=== PATIENT | male | born 1940 | race Caucasian/White ===

== ENCOUNTER → 2016-06-16 | Outpatient (CLI) | payer OTHER ==
[~2016-06-16] MED LIST: ASPI325T45 PO; ATOR-24 PO; CALC-393 PO; CHOL100010 PO; CIPR-255 PO; CLR10 PO; CYAN500T PO; DIAZ-165 PO; ENOX40IN SQ; HYDR-5688 PO; HYDR500C3 PO; INDSR80 PO; METR500T PO; OXYC-57 PO; PRD/1 PO
== END | disposition home or self-care (01) ==
LOC: C.LABMFLN 11:06
PROVIDERS: ATTEND Internal Medicine Rheumatology
DX: M35.3 Polymyalgia rheumatica (principal); Z79.52 Long term (current) use of systemic steroids

== ENCOUNTER → 2016-06-29 | Outpatient (CLI) | payer OTHER | END | disposition home or self-care (01) | LOC: C.LABMFLN 08:29 | PROVIDERS: ATTEND Internal Medicine Rheumatology | DX: M35.3 Polymyalgia rheumatica (principal) ==

== ENCOUNTER → 2016-08-14 | Outpatient (CLI) | payer OTHER | END | disposition home or self-care (01) | LOC: C.LABMFLN 08:02 | PROVIDERS: ATTEND Internal Medicine Rheumatology | DX: M35.3 Polymyalgia rheumatica (principal); Z51.81 Encounter for therapeutic drug level monitoring; Z79.52 Long term (current) use of systemic steroids ==

== ENCOUNTER → 2016-11-13 | Outpatient (CLI) | payer OTHER | END | disposition home or self-care (01) | LOC: C.LAB1850 09:22 | PROVIDERS: ATTEND Internal Medicine Rheumatology | DX: M35.3 Polymyalgia rheumatica (principal); Z79.52 Long term (current) use of systemic steroids ==

== ENCOUNTER → 2017-01-03 | Outpatient (CLI) | payer OTHER ==
[2017-01-03 13:20] LABS: HEMATOCRIT 44.6 % (42-52); MEAN CELL VOLUME 97.2 fL (80-100); MEAN CORPUSCULAR HEMOGLOBIN 31.2 pg (25-34); MEAN CORPUSCULAR HGB CONC 32.1 g/dl (32-36); MEAN PLATELET VOLUME 10.7 fL (7.4-10.4); PLATELET COUNT 829 K/uL (130-400); RED BLOOD COUNT 4.59 M/uL (4.7-6.1); WHITE BLOOD COUNT 15.38 K/uL (4.8-10.8)
[2017-01-03 16:39] LABS: BASO ABS # 0.26 K/uL (0-0.2); BASOPHIL % 1.7 % (0-2); EOSINOPHIL % 8.5 %; LYMPH ABS # 1.17 K/uL (1.2-3.4); LYMPHOCYTE % 7.6 %; META ABS # 0.26 K/uL (0-0); METAMYELOCYTE % 1.7 %; MYELOCYTE % 5.9 %; NEUTROPHILS % 58.5 %; POLYCHROMASIA 1+; VARIANT LYM ABS # 1.57 K/uL; VARIANT LYMPHOCYTE % 10.2 %
[2017-01-03 17:14] LABS: COMPLETE YES
== END | disposition home or self-care (01) ==
LOC: C.LABMFLN 08:13
PROVIDERS: ATTEND Family Medicine
DX: D72.829 Elevated white blood cell count, unspecified (principal)

== ENCOUNTER 2017-01-22 12:31 | Inpatient (IN) | payer OTHER ==
[2017-01-22] VITALS (9 sets, daily range): BP systolic 105–119; BP diastolic 69–77; PULSE 83–93; TEMP 36.8–37.1; O2SAT 96–97; Ht 177.8 cm; Wt 88.9 kg
[~2017-01-22] VITALS: Ht 177.8 cm; Wt 88.9 kg
[2017-01-22] MEDS ORDERED: DIAZ-165 PO (13:09)
[2017-01-22] MEDS ORDERED: ASPI325T45 PO (13:09)
[2017-01-22] MEDS ORDERED: PRD/1 PO (13:09)
[2017-01-22] MEDS ORDERED: CHOL100010 PO (13:09)
[2017-01-22] MEDS ORDERED: CALC-393 PO (13:09)
[2017-01-22] MEDS ORDERED: HYDR-5688 PO (13:09)
[2017-01-22] MEDS ORDERED: INDSR80 PO (13:09)
[2017-01-22] MEDS ORDERED: CYAN500T PO (13:09)
[2017-01-22] MEDS ORDERED: CLR10 PO (13:09)
[2017-01-22] MEDS ORDERED: ATOR-24 PO (13:09)
[2017-01-22] MEDS ORDERED: MoRPHine SULFATE 4 MG/ML 1 ML CARP\\VIAL IV STA (13:16)
[2017-01-22] MEDS ORDERED: SODIUM CHLORIDE 0.9% 500ML 500 ML IV STA (13:16)
[2017-01-22] MEDS ORDERED: ONDANSETRON INJ 2 MG/ML 2 ML VIAL IV STA (13:16)
[2017-01-22] MEDS ORDERED: OPTIRAY 320 IV PRN (13:30)
[2017-01-22 13:44] LABS: HEMATOCRIT 43.6 % (42-52); MEAN CORPUSCULAR HEMOGLOBIN 31.2 pg (25-34); MEAN CORPUSCULAR HGB CONC 32.8 g/dl (32-36); MEAN PLATELET VOLUME 9.9 fL (7.4-10.4); PLATELET COUNT 706 K/uL (130-400); RED BLOOD COUNT 4.59 M/uL (4.7-6.1); WHITE BLOOD COUNT 19.12 K/uL (4.8-10.8)
[2017-01-22 13:52] LABS: URINE APPEARANCE CLEAR (CLEAR); URINE BILIRUBIN NEG (NEG); URINE COLOR YELLOW; URINE NITRITE NEG (NEG); URINE SPECIFIC GRAVITY 1.017 (1.000-1.030); UROBILINOGEN NEG (NEG); ZZUR CULT IF INDIC CLEAN CATCH NO
[2017-01-22 13:55] LABS: MANUAL MICROSCOPIC REQUIRED? NO; REVIEW REQ? NO
[2017-01-22 14:03] LABS: BUN/CREATININE RATIO 13.6 (10-20); CALCIUM 9.3 mg/dl (8.5-10.1); CREATININE 0.9 mg/dl (0.60-1.40); POTASSIUM 3.9 mmol/L (3.5-5.1)
[2017-01-22 14:41] LABS: BASO ABS # 0.33 K/uL (0-0.2); BASOPHIL % 1.7 % (0-2); COMPLETE YES; DOHLE BODIES 1+; ECHINOCYTES 1+; EOSINOPHIL % 0.9 %; LYMPH ABS # 0.82 K/uL (1.2-3.4); LYMPHOCYTE % 4.3 %; MYELOCYTE % 2.6 %; NEUTROPHILS % 85.3 %; TOXIC GRANULATION 1+
--- NOTE | 2017-01-22 14:42 | DIAGNOSTIC IMAGING REPORT ---
CT ABD/PELVIS IV CONTRAST ONLY CLINICAL HISTORY: Severe generalized abdominal pain COMPARISON STUDY: None. TECHNIQUE: Following the IV administration of 93 mL of Optiray-320, CT scan of the abdomen and pelvis was performed from the lung bases to the proximal femurs. Images are reviewed in the axial, sagittal, and coronal planes. IV contrast was administered without complication. A dose lowering technique was utilized adhering to the principles of ALARA. CT DOSE: 475.83 mGy.cm FINDINGS: Lower chest: There is a small right pleural effusion. There are bibasal airspace opacities right greater than left, likely atelectatic. Liver: The contrast-enhanced liver is normal in size, contour, and attenuation. There is no intrahepatic biliary ductal dilatation. The hepatic veins and portal veins are patent. Gallbladder: Unremarkable. Spleen: Normal in size and attenuation. Pancreas: Unremarkable. Adrenal glands: Unremarkable. Kidneys: There is a 5.9 cm exophytic right renal cyst. Bowel: There are no transition zones indicate bowel obstruction. There is extensive free intraperitoneal air. There is infiltration of the fat adjacent to the sigmoid colon and terminal ileum. There is an area of focal bowel wall thickening within the sigmoid. Likely diagnostic considerations include perforated diverticulitis or a perforated carcinoma. Peritoneum: There is extensive free intraperitoneal air. There are small fluid collections within the right lower quadrant mesentery Vasculature: The abdominal aorta is normal in course and caliber. Adenopathy: None. Pelvic viscera: There is mild bladder wall thickening. There is mild prostamegaly. There is a small bladder diverticulum arising from the bladder dome. Skeletal structures: No destructive osseous lesions are seen. IMPRESSION: 1. Extensive free intraperitoneal air 2. Infiltration of the mesentery in the region of the sigmoid apex and distal small bowel 3. Area of focal sigmoid wall thickening 4. On a statistical basis, the free air secondary to either perforated sigmoid diverticulitis or a perforated sigmoid carcinoma 5. Surgical consultation is recommended Electronically signed by: Kodi Woodard M.D. 01/22/2017 2:40 PM Dictated Date/Time: 01/22/2017 2:31 PM
[2017-01-22] MEDS ORDERED: PIPERACILLIN/TAZOBACTAM 4.5 GM/100ML D5W IV STA (14:47)
[2017-01-22] MEDS ORDERED: DEXAMETHASONE SOD INJ 4 MG/ML VIAL ONE (15:21)
[2017-01-22] MEDS ORDERED: MIDAZOLAM HCL 1 MG/ML 2ML VIAL ONE (15:21)
[2017-01-22] MEDS ORDERED: PROPOFOL IV EMULSION 10 MG/ML 20 ML VIAL IV ONE (15:21)
[2017-01-22] MEDS ORDERED: GLYCOPYRROLATE INJ 0.2 MG/ML VIAL ONE (15:21)
[2017-01-22] MEDS ORDERED: NEOSTIGMINE METHYLSULFATE 5 MG/5 ML SYR ONE (15:21)
[2017-01-22] MEDS ORDERED: ONDANSETRON INJ 2 MG/ML 2 ML VIAL ONE (15:21)
[2017-01-22] MEDS ORDERED: FENTANYL CITRATE INJ 50 MCG/1 ML 2 ML VIAL ONE ×2 (15:21)
[2017-01-22] MEDS ORDERED: CISATRACURIUM BESYLATE IV SOLN 2 MG/ML 10 ML VIAL ONE (15:21)
[2017-01-22] MEDS ORDERED: LIDOCAINE HCL 2% 2 ML VIAL (20MG/ML) ONE (15:21)
[2017-01-22] MEDS ORDERED: SUCCINYLCHOLINE CHLORIDE 20 MG/ML 10 ML VIAL IV ONE (15:21)
--- NOTE | 2017-01-22 15:41 | History and Physical ---
History & Physical Date & Time of Service: Jan 22, 2017 at 15:30 Chief Complaint: Severe Abd Pain Primary Care Physician: Yadira Turpin M.D. History of Present Illness Source: patient, family This is a 76 year old male who presents to the Emergency Room with complaints of RLQ abdominal pain that began 4 days ago. He rates his pain a 9/10 in severity. His pain worsens with movement. He has a past medical history of a colonoscopy last month that showed a large polyp that he had removed. He had some post-op rectal bleeding. He has had an outpatient work-up showing elevated WBCs.He has been on steroids for a year for PMR but is down to 2mg daily.He denies headache, change in vision, fevers, chest pain, shortness of breath, nausea, vomiting, diarrhea, pain with urination, hematochezia, testicular pain, groin pain, and melena. A CT scan shows a lot of free air and possible sigmoid diverticulitis. He had a biopsy of his ascending colon less than a month ago. Past Medical/Surgical History PMHx PMR Elevated lipids HTN PSHx appendectomy colonoscopy w/polyp Family History Non-contributory Social History Smoking Status: Never Smoker Smokeless Tobacco Use: No Alcohol Use: none Drug Use: none Marital Status: Housing status: lives with family Occupational Status: retired Immunizations History of Influenza Vaccine: Yes Multi-Drug Resistant Organisms History of MDRO: No Allergies Coded Allergies: No Known Allergies (Unverified , 01/22/17) Home Medications Scheduled Aspirin (Aspirin), 325 MG PO DAILY Atorvastatin (Lipitor), 40 MG PO QAM Calcium Carbonate (Calcium), 600 MG PO DAILY Cholecalciferol (Vitamin D), 1,000 UNITS PO DAILY Cyanocobalamin (Vitamin B-12), 500 MCG PO DAILY Loratadine (Claritin), 10 MG PO DAILY Prednisone (Prednisone), 2 MG PO DAILY Propranolol HCl (Propranolol HCl ER), 80 MG PO DAILY Scheduled PRN Diazepam (Valium), 5 MG PO BID PRN for Anxiety Hydrocodone/Acetaminophen 5MG/325MG ([place] 5MG/325MG), 1 TABLET PO Q4-6H PRN for Pain Review of Systems Constitutional: + fever, No chills, No sweats, No weight loss, No fatigue Eyes: No worsening of vision, No eye pain, No redness ENT: No hearing loss, No sore throat, No trouble swallowing Respiratory: No cough, No shortness of breath, No dyspnea on exertion, No hemoptysis Cardiovascular: No chest pain, No orthopnea, No edema, No claudication, No palpitations Abdomen: + pain, + GI bleeding, No nausea, No vomiting, No diarrhea, No constipation Musculoskeletal: + joint pain, No muscle pain, No swelling Genitourinary - Male: No hematuria, No dysuria Neurologic: No memory loss, No numbness/tingling, No balance problems Psychiatric: No depression symptoms Endocrine: No fatigue, No excessive urination Hematologic / Lymphatic: No abnormal bleeding/bruising, No swollen lymph nodes , No night sweats Integumentary: No rash, No itch, No new/changing skin lesions Allergic / Immunologic: No environmental allergies, No food allergies Physical Exam Vital Signs Date Time Temp Pulse Resp B/P (MAP) Pulse Ox O2 Delivery O2 Flow Rate FiO2 01/22/17 14:50 121/59 01/22/17 13:53 126/64 01/22/17 12:40 36.4 85 22 138/77 93 Room Air General Appearance: WD/WN, no apparent distress Head: normocephalic, atraumatic Eyes: normal inspection, PERRL, EOMI, sclerae normal ENT: normal ENT inspection Neck: supple, no adenopathy, trachea midline Respiratory/Chest: chest non-tender, lungs clear Cardiovascular: regular rate, rhythm, no gallop, no murmur Abdomen/GI: normal bowel sounds, soft, + tenderness, + guarding, + rebound Genitourinary - Male: normal male genitalia Back: normal inspection, no CVA tenderness Extremities/Musculoskelatal: normal inspection, normal range of motion, non- tender Neurologic/Psych: no motor/sensory deficits, alert, normal mood/affect, oriented x 3 Skin: normal color, warm/dry Diagnostics Laboratory Results Results Past 24 Hours Test 01/22/17 13:10 01/22/17 13:25 01/22/17 14:57 Range/Units White Blood Count 19.12 4.8-10.8 K/uL Red Blood Count 4.59 4.7-6.1 M/uL Hemoglobin 14.3 14.0-18.0 g/dL Hematocrit 43.6 42-52 % Mean Corpuscular Volume 95.0 80-100 fL Mean Corpuscular Hemoglobin 31.2 25-34 pg Mean Corpuscular Hemoglobin Concent 32.8 32-36 g/dl Platelet Count 706 130-400 K/uL Mean Platelet Volume 9.9 7.4-10.4 fL RDW Standard Deviation 60.1 36.4-46.3 fL RDW Coefficient of Variation 17.3 11.5-14.5 % Nucleated RBC Absolute Count (auto) 0.05 0-0 K/uL Neutrophils % (Manual) 85.3 % Lymphocytes % (Manual) 4.3 % Monocytes % (Manual) 5.2 % Eosinophils % (Manual) 0.9 % Basophils % (Manual) 1.7 0-2 % Myelocytes % 2.6 % Nucleated Red Blood Cells % 0.2 % Neutrophils # (Manual) 16.31 1.4-6.5 K/uL Total Absolute Neutrophils 16.31 1.4-6.5 K/uL Lymphocytes # (Manual) 0.82 1.2-3.4 K/uL Total Absolute Lymphocytes 0.82 1.2-3.4 K/uL Monocytes # (Manual) 0.99 0.11-0.59 K/uL Eosinophils # (Manual) 0.17 0-0.5 K/uL Basophils # (Manual) 0.33 0-0.2 K/uL Myelocytes # 0.50 0-0 K/uL Toxic Granulation 1+ Dohle Bodies 1+ Echinocytes 1+ Sodium Level 135 136-145 mmol/L Potassium Level 3.9 3.5-5.1 mmol/L Chloride Level 102 98-107 mmol/L Carbon Dioxide Level 26 21-32 mmol/L Anion Gap 7.0 3-11 mmol/L Blood Urea Nitrogen 12 7-18 mg/dl Creatinine 0.90 0.60-1.40 mg/dl Est Creatinine Clear Calc Drug Dose 73.2 ml/min Estimated GFR () 96.5 Estimated GFR (Non- 83.3 BUN/Creatinine Ratio 13.6 10-20 Random Glucose 85 70-99 mg/dl Calcium Level 9.3 8.5-10.1 mg/dl Total Bilirubin 1.1 0.2-1 mg/dl Direct Bilirubin 0.4 0-0.2 mg/dl Aspartate Amino Transf (AST/SGOT) 16 15-37 U/L Alanine Aminotransferase (ALT/SGPT) 12 12-78 U/L Alkaline Phosphatase 111 45-117 U/L Total Protein 7.3 6.4-8.2 gm/dl Albumin 3.1 3.4-5.0 gm/dl Lipase 192 73-393 U/L Urine Color YELLOW Urine Appearance CLEAR CLEAR Urine pH 6.0 4.5-7.5 Urine Specific [place] 1.017 1.000-1.030 Urine Protein 1+ NEG Urine Glucose (UA) NEG NEG Urine Ketones 1+ NEG Urine Occult Blood TRACE NEG Urine Nitrite NEG NEG Urine Bilirubin NEG NEG Urine Urobilinogen NEG NEG Urine Leukocyte Esterase NEG NEG Urine WBC (Auto) 1-5 0-5 /hpf Urine RBC (Auto) 0-4 0-4 /hpf Urine Hyaline Casts (Auto) 0 0-5 /lpf Urine Epithelial Cells (Auto) 5-10 0-5 /lpf Urine Bacteria (Auto) NEG NEG Diagnostic Radiology CT ABD/PELVIS IV CONTRAST ONLY CLINICAL HISTORY: Severe generalized abdominal pain COMPARISON STUDY: None. TECHNIQUE: Following the IV administration of 93 mL of Optiray-320, CT scan of the abdomen and pelvis was performed from the lung bases to the proximal femurs. Images are reviewed in the axial, sagittal, and coronal planes. IV contrast was administered without complication. A dose lowering technique was utilized adhering to the principles of ALARA. CT DOSE: 475.83 mGy.cm FINDINGS: Lower chest: There is a small right pleural effusion. There are bibasal airspace opacities right greater than left, likely atelectatic. Liver: The contrast-enhanced liver is normal in size, contour, and attenuation. There is no intrahepatic biliary ductal dilatation. The hepatic veins and portal veins are patent. Gallbladder: Unremarkable. Spleen: Normal in size and attenuation. Pancreas: Unremarkable. Adrenal glands: Unremarkable. Kidneys: There is a 5.9 cm exophytic right renal cyst. Bowel: There are no transition zones indicate bowel obstruction. There is extensive free intraperitoneal air. There is infiltration of the fat adjacent to the sigmoid colon and terminal ileum. There is an area of focal bowel wall thickening within the sigmoid. Likely diagnostic considerations include perforated diverticulitis or a perforated carcinoma. Peritoneum: There is extensive free intraperitoneal air. There are small fluid collections within the right lower quadrant mesentery Vasculature: The abdominal aorta is normal in course and caliber. Adenopathy: None. Pelvic viscera: There is mild bladder wall thickening. There is mild prostamegaly. There is a small bladder diverticulum arising from the bladder dome. Skeletal structures: No destructive osseous lesions are seen. IMPRESSION: 1. Extensive free intraperitoneal air 2. Infiltration of the mesentery in the region of the sigmoid apex and distal small bowel 3. Area of focal sigmoid wall thickening 4. On a statistical basis, the free air secondary to either perforated sigmoid diverticulitis or a perforated sigmoid carcinoma 5. Surgical consultation is recommended Impression Assessment and Plan Perforated viscus with free air likely perforated diverticulitis -IV zosyn -IVF -to OR for ex lap PMR -hold steroids Elevated lipids -statin ASA Classification: ASA Class III Level of Care Telemetry Resuscitation Status FULL RESUSCITATION VTE Prophylaxis VTE Risk Assessment Done? Y/N: Yes Risk Level: Moderate Given or contraindicated: SCD's
[2017-01-22] MEDS ORDERED: ACETAMINOPHEN 325 MG TAB PO PRN (15:45)
[2017-01-22] MEDS ORDERED: ATROPINE SULFATE 0.1 MG/ML 5ML SYR IV PRN (16:30)
[2017-01-22] MEDS ORDERED: ONDANSETRON INJ 2 MG/ML 2 ML VIAL IV PRN (16:30)
[2017-01-22] MEDS ORDERED: LABETALOL HCL IV 5 MG/ML 20ML IV PRN (16:30)
--- NOTE | 2017-01-22 17:43 | [facility] Post Operative Brief Note ---
Immediate Operative Summary Operative Date Jan 22, 2017. Pre-Operative Diagnosis Perforated viscus with free air Post-Operative Diagnosis Walled -off cecal perforation Procedure(s) Performed Exploratory Laparotomy, repair of cecal colotomy Surgeon Dr. Johnathan Thompson Switch Repairer Surgeon(s) none Estimated Blood Loss 150ML Findings RLQ phlegmon was entered with likely cecal colotomy from previous biopsy(SB and sigmoid colon applied to cecum); no fecal contamination Specimens none, Per Surgeon Drains Pelvic and RLQ drains Anesthesia GETA Complication(s) None Disposition Recovery Room / PACU
[2017-01-22] MEDS: HYDROmorphone INJ 2 MG/ML SYR/VIAL IV PRN ×7 (17:58→18:28)
[2017-01-22] MEDS ORDERED: HYDROmorphone INJ 1 MG/ML SYR ONE (17:58)
[2017-01-22] MEDS ORDERED: PIPERACILL/TAZOBAC CONSULT ACTIVE PRN (18:15)
[2017-01-22] MEDS ORDERED: ZOLPIDEM TARTRATE 10 MG TAB PO PRN (18:30)
--- NOTE | 2017-01-22 18:41 | Anesthesiology Progress Note ---
Anesthesia Post Op Note Date & Time Jan 22, 2017 at 18:41 Vital Signs Vital Signs Past 12 Hours Date Time Temp Pulse Resp B/P (MAP) Pulse Ox O2 Delivery O2 Flow Rate FiO2 01/22/17 18:35 81 14 104/81 95 Nasal Cannula 2 01/22/17 18:25 82 17 114/59 95 Nasal Cannula 2 01/22/17 18:15 79 18 103/69 95 Nasal Cannula 2 01/22/17 18:05 78 19 117/71 98 Oxymask 10 01/22/17 17:55 75 20 124/76 99 Oxymask 10 01/22/17 17:49 36.4 76 23 130/92 99 Oxymask 10 01/22/17 15:52 36.7 76 16 129/71 (90) 94 Room Air 01/22/17 15:37 36.4 76 18 127/69 93 01/22/17 15:30 76 18 127/69 93 Room Air 01/22/17 14:50 121/59 01/22/17 13:53 126/64 01/22/17 12:40 36.4 85 22 138/77 93 Room Air Notes Mental Status: alert / awake / arousable, participated in evaluation Pt Amnestic to Procedure: Yes Nausea / Vomiting: adequately controlled Pain: adequately controlled Airway Patency, RR, SpO2: stable & adequate BP & HR: stable & adequate Hydration State: stable & adequate Anesthetic Complications: no major complications apparent
--- NOTE | 2017-01-22 18:46 | EMERGENCY ROOM VISIT NOTE ---
History Report prepared by Dustin: Hasmukh Hurt Under the Supervision of: Dr. Obie Arnold D.O. First contact with patient: 12:54 Chief Complaint: ABDOMINAL PAIN Stated Complaint: SEVERE ABD PAIN Nursing Triage Summary: pt had colonoscopy early december and had polyp removed. pt states he had bleeding mid december. today pt c/o right lower abdominal pain and nausea since last . pt was seen at PCP and was referred to ER. History of Present Illness The patient is a 76 year old male who presents to the Emergency Room with complaints of RLQ abdominal pain that began 4 days ago. He rates his pain a 9/ 10 in severity. His pain worsens with movement. He has a past medical history of a colonoscopy last month that showed a large polyp that he had removed. He then experienced some rectal bleeding and received blood counts that showed an elevated white blood cell count. He has been on Prednisone for 1 year. He still has his gallbladder but not his appendix. He has a history of a double hernia. Pt denies headache, change in vision, fevers, chest pain, shortness of breath, nausea, vomiting, diarrhea, pain with urination, hematochezia, testicular pain, groin pain, and melena. Source of History: patient Onset: four days ago Position: abdomen (RLQ) Symptom Intensity: 9/10 Quality: sharp Timing: constant Modifying Factors (Worsening): breathing (Deep breathing), movement Associated Symptoms: No fevers, No headache, No chest pain, No SOB, No nausea, No vomiting, No melena, No hematochezia, No diarrhea, No urinary symptoms Review of Systems See HPI for pertinent positives & negatives. A total of 10 systems reviewed and were otherwise negative. Past Medical & Surgical Medical Problems: (1) Perforated abdominal viscus Surgical Problems: (1) Hx of appendectomy (2) Polyp of colon Family History Omitted secondary to the patient's age. Social History Smoking Status: Never Smoker Smokeless Tobacco Use: No Drug Use: none Marital Status: Housing Status: lives with significant other Occupation Status: retired Current/Historical Medications Scheduled Aspirin (Aspirin), 325 MG PO DAILY Atorvastatin (Lipitor), 40 MG PO QAM Calcium Carbonate (Calcium), 600 MG PO DAILY Cholecalciferol (Vitamin D), 1,000 UNITS PO DAILY Cyanocobalamin (Vitamin B-12), 500 MCG PO DAILY Loratadine (Claritin), 10 MG PO DAILY Prednisone (Prednisone), 2 MG PO DAILY Propranolol HCl (Propranolol HCl ER), 80 MG PO DAILY Scheduled PRN Diazepam (Valium), 5 MG PO BID PRN for Anxiety Hydrocodone/Acetaminophen 5MG/325MG (Adel 5MG/325MG), 1 TABLET PO Q4-6H PRN for Pain Allergies Coded Allergies: No Known Allergies (Unverified , 01/22/17) Physical Exam Vital Signs Date Time Temp Pulse Resp B/P (MAP) Pulse Ox O2 Delivery O2 Flow Rate FiO2 01/22/17 17:49 36.4 76 23 130/92 99 Oxymask 10 01/22/17 15:52 36.7 76 16 129/71 (90) 94 Room Air 01/22/17 15:37 36.4 76 18 127/69 93 01/22/17 15:30 76 18 127/69 93 Room Air 01/22/17 14:50 121/59 01/22/17 13:53 126/64 01/22/17 12:40 36.4 85 22 138/77 93 Room Air Physical Exam GENERAL: alert, sitting up in bed, well appearing, well nourished, mild distress , non-toxic EYE EXAM: normal conjunctiva OROPHARYNX: no exudate, no erythema, lips, buccal mucosa, and tongue normal and mucous membranes are moist NECK: supple, no nuchal rigidity, no adenopathy, non-tender LUNGS: Clear to auscultation. Normal chest wall mechanics HEART: no murmurs, S1 normal and S2 normal ABDOMEN: abdomen soft, tenderness to the RLQ, normo-active bowel sounds, no masses, no rebound or guarding. BACK: Back is symmetrical on inspection and there is no deformity, no midline tenderness, no CVA tenderness. SKIN: no rashes and no bruising UPPER EXTREMITIES: upper extremities are grossly normal. LOWER EXTREMITIES: No pitting edema. NEURO EXAM: Normal sensorium, cranial nerves II-XII grossly intact, normal speech, no gross weakness of arms, no gross weakness of legs. Medical Decision & Procedures ER Provider Diagnostic Interpretation: Radiology results as stated below per my review and the radiologist's interpretation: CT ABD/PELVIS IV CONTRAST ONLY CLINICAL HISTORY: Severe generalized abdominal pain COMPARISON STUDY: None. TECHNIQUE: Following the IV administration of 93 mL of Optiray-320, CT scan of the abdomen and pelvis was performed from the lung bases to the proximal femurs. Images are reviewed in the axial, sagittal, and coronal planes. IV contrast was administered without complication. A dose lowering technique was utilized adhering to the principles of ALARA. CT DOSE: 475.83 mGy.cm FINDINGS: Lower chest: There is a small right pleural effusion. There are bibasal airspace opacities right greater than left, likely atelectatic. Liver: The contrast-enhanced liver is normal in size, contour, and attenuation. There is no intrahepatic biliary ductal dilatation. The hepatic veins and portal veins are patent. Gallbladder: Unremarkable. Spleen: Normal in size and attenuation. Pancreas: Unremarkable. Adrenal glands: Unremarkable. Kidneys: There is a 5.9 cm exophytic right renal cyst. Bowel: There are no transition zones indicate bowel obstruction. There is extensive free intraperitoneal air. There is infiltration of the fat adjacent to the sigmoid colon and terminal ileum. There is an area of focal bowel wall thickening within the sigmoid. Likely diagnostic considerations include perforated diverticulitis or a perforated carcinoma. Peritoneum: There is extensive free intraperitoneal air. There are small fluid collections within the right lower quadrant mesentery Vasculature: The abdominal aorta is normal in course and caliber. Adenopathy: None. Pelvic viscera: There is mild bladder wall thickening. There is mild prostamegaly. There is a small bladder diverticulum arising from the bladder dome. Skeletal structures: No destructive osseous lesions are seen. IMPRESSION: 1. Extensive free intraperitoneal air 2. Infiltration of the mesentery in the region of the sigmoid apex and distal small bowel 3. Area of focal sigmoid wall thickening 4. On a statistical basis, the free air secondary to either perforated sigmoid diverticulitis or a perforated sigmoid carcinoma 5. Surgical consultation is recommended Electronically signed by: Kodi Woodard M.D. 01/22/2017 2:40 PM Dictated Date/Time: 01/22/2017 2:31 PM Laboratory Results 01/22/17 13:10 Red Blood Count 4.59, Mean Corpuscular Volume 95.0, Mean Corpuscular Hemoglobin 31.2, Mean Corpuscular Hemoglobin Concent 32.8, Mean Platelet Volume 9.9 01/22/17 13:10 Test 01/22/17 13:10 01/22/17 13:25 01/22/17 14:57 White Blood Count 19.12 K/uL (4.8-10.8) Red Blood Count 4.59 M/uL (4.7-6.1) Hemoglobin 14.3 g/dL (14.0-18.0) Hematocrit 43.6 % (42-52) Mean Corpuscular Volume 95.0 fL (80-100) Mean Corpuscular Hemoglobin 31.2 pg (25-34) Mean Corpuscular Hemoglobin Concent 32.8 g/dl (32-36) Platelet Count 706 K/uL (130-400) Mean Platelet Volume 9.9 fL (7.4-10.4) RDW Standard Deviation 60.1 fL (36.4-46.3) RDW Coefficient of Variation 17.3 % (11.5-14.5) Nucleated RBC Absolute Count (auto) 0.05 K/uL (0-0) Neutrophils % (Manual) 85.3 % Lymphocytes % (Manual) 4.3 % Monocytes % (Manual) 5.2 % Eosinophils % (Manual) 0.9 % Basophils % (Manual) 1.7 % (0-2) Myelocytes % 2.6 % Nucleated Red Blood Cells % 0.2 % Neutrophils # (Manual) 16.31 K/uL (1.4-6.5) Total Absolute Neutrophils 16.31 K/uL (1.4-6.5) Lymphocytes # (Manual) 0.82 K/uL (1.2-3.4) Total Absolute Lymphocytes 0.82 K/uL (1.2-3.4) Monocytes # (Manual) 0.99 K/uL (0.11-0.59) Eosinophils # (Manual) 0.17 K/uL (0-0.5) Basophils # (Manual) 0.33 K/uL (0-0.2) Myelocytes # 0.50 K/uL (0-0) Toxic Granulation 1+ Dohle Bodies 1+ Echinocytes 1+ Anion Gap 7.0 mmol/L (3-11) Est Creatinine Clear Calc Drug Dose 73.2 ml/min Estimated GFR () 96.5 Estimated GFR (Non- 83.3 BUN/Creatinine Ratio 13.6 (10-20) Calcium Level 9.3 mg/dl (8.5-10.1) Total Bilirubin 1.1 mg/dl (0.2-1) Direct Bilirubin 0.4 mg/dl (0-0.2) Aspartate Amino Transf (AST/SGOT) 16 U/L (15-37) Alanine Aminotransferase (ALT/SGPT) 12 U/L (12-78) Alkaline Phosphatase 111 U/L (45-117) Total Protein 7.3 gm/dl (6.4-8.2) Albumin 3.1 gm/dl (3.4-5.0) Lipase 192 U/L (73-393) Urine Color YELLOW Urine Appearance CLEAR (CLEAR) Urine pH 6.0 (4.5-7.5) Urine Specific [place] 1.017 (1.000-1.030) Urine Protein 1+ (NEG) Urine Glucose (UA) NEG (NEG) Urine Ketones 1+ (NEG) Urine Occult Blood TRACE (NEG) Urine Nitrite NEG (NEG) Urine Bilirubin NEG (NEG) Urine Urobilinogen NEG (NEG) Urine Leukocyte Esterase NEG (NEG) Urine WBC (Auto) 1-5 /hpf (0-5) Urine RBC (Auto) 0-4 /hpf (0-4) Urine Hyaline Casts (Auto) 0 /lpf (0-5) Urine Epithelial Cells (Auto) 5-10 /lpf (0-5) Urine Bacteria (Auto) NEG (NEG) Lactic Acid Level 1.3 mmol/L (0.4-2.0) Laboratory results per my review. Medications Administered Medications (Trade) Dose Ordered Sig/Kym Route Start Time Stop Time Status Last Admin Dose Admin Morphine Sulfate (MoRPHine SULFATE INJ) 4 mg NOW STAT IV 01/22/17 13:16 01/22/17 13:17 DC 01/22/17 13:26 4 MG Ondansetron HCl (Zofran Inj) 4 mg NOW STAT IV 01/22/17 13:16 01/22/17 13:17 DC 01/22/17 13:25 4 MG Sodium Chloride 500 ml @ 999 mls/hr Q31M STAT IV 01/22/17 13:16 01/22/17 13:46 DC 01/22/17 13:16 999 MLS/HR Piperacillin Sod/ Tazobactam Sod (Zosyn Iv) 4.5 gm NOW STAT IV 01/22/17 14:47 01/22/17 14:49 DC 01/22/17 15:00 4.5 GM ED Course ED COURSE: Vital signs were reviewed and showed normal vitals. The patients medical record was reviewed The above diagnostic studies were performed and reviewed. ED treatments and interventions as stated above. 1254: The patient was evaluated in room B6. A complete history and physical examination was performed. 1316: Ordered Sodium Chloride 500 ml @ 999 mls/hr IV, Zofran Inj 4 mg IV, Morphine Sulfate 4 mg IV 1415: The patient feels better with an abdominal pain rating of 3/10. 1447: Ordered Zosyn Iv 4.5 gm IV 1501: Upon reevaluation, the patient is resting. I discussed my findings with the patient and he understands and agrees with the treatment plan. Based on the patients age, coexisting illnesses, exam and lab findings the decision to treat as an inpatient was made. The patient remained stable while under my care. The patient will be evaluated for further management by Dr. Thompson of General Surgery. Medical Decision Differential diagnoses includes but is not limited to gastritis, peptic ulcer disease, GERD, gallbladder disease, pancreatitis, small bowel obstruction, acute coronary syndrome, pericarditis, ischemic bowel, irritable bowel disease, irritable bowel syndrome, appendicitis, diverticulitis, malignancy, hernia, urinary tract infection, torsion, perforation, trauma, infectious. Patient is a 76-year-old male that presents to ER referred in by outside physician for abdominal pain. Labs are remarkable for a leukocytosis 19,000. The MP along with LFTs and UA was fairly unremarkable. CT of abdomen and pelvis shows large amount of free air. IV Zosyn was given. Patient was given IV morphine and Zofran. Discussed with general surgery and he was taken to the OR for peritonitis with intra-abdominal free air. Medication Reconcilliation Current Medication List: was personally reviewed by me Blood Pressure Screening Patient's blood pressure: Normal blood pressure Blood pressure disposition: Did not require urgent referral Consults Time Called: 1500 Consulting Physician: Dr. Thompson - General Surgery Returned Call: 1501 I reviewed the patient's case with him. He will evaluate the patient for further management. Impression Primary Impression: Perforated abdominal viscus Scribe Attestation The scribe's documentation has been prepared under my direction and personally reviewed by me in its entirety. I confirm that the note above accurately reflects all work, treatment, procedures, and medical decision making performed by me. Departure Information Dispostion Being Evaluated By Surgeon Referrals Yadira Turpin M.D. (PCP) Patient Instructions My [facility]
[2017-01-22] MEDS: SODIUM CHLORIDE 0.9% 1000ML 1,000 ML IV SCH (19:35)
[2017-01-22] MEDS: METRONIDAZOLE / NSS 500 MG in PREMIXED NSS 100 ML IV SCH (20:21)
[2017-01-22] MEDS: PIPERACILL/TAZOBAC IV 3.375 GM in DEXTROSE 5% 100ML 100 ML IV SCH (20:22)
[2017-01-22] MEDS: MoRPHine SULFATE 4 MG/ML 1 ML CARP\\VIAL IV PRN ×2 (22:33→23:48)
--- NOTE | 2017-01-22 22:48 | OPERATIVE REPORT ---
DATE OF OPERATION: 01/22/2017 PREOPERATIVE DIAGNOSES: 1. Perforated viscus. 2. Free air. POSTOPERATIVE DIAGNOSIS: Right lower quadrant phlegmon with previously perforated cecum with small bowel and sigmoid colon adherent. PROCEDURE PERFORMED: Exploratory laparotomy with repair of cecal colotomy. SURGEON: Johnathan Thompson MD. DIRECTOR OF PROMOTIONS: None. FINDINGS: Right lower quadrant phlegmon with a cecal colostomy which had walled itself off. There was no free perforation. There was no fecal contamination. Small bowel and the sigmoid colon were attached to this. This was broken down to assess the injury. SPECIMENS: None. DRAINS: Pelvic Main drain, a right lower quadrant drain. ANESTHESIA: General endotracheal. ESTIMATED BLOOD LOSS: 150 mL. INDICATION FOR THE PROCEDURE: This is a 76-year-old male who had a colonoscopy 2-3 weeks ago with postop, which was complicated by pain and elevated white count. He had no imaging done, but was treated symptomatically, given IV antibiotics. He had increasing pain over the last 4 days and was seen in the ER this morning. A CT scan was done which showed free air and he had peritoneal signs on exam. We will take him for exploratory laparotomy. We went over the complications in detail with him. DESCRIPTION OF THE PROCEDURE: The patient was taken to the OR and underwent excellent general endotracheal anesthesia. His [place] and NG tube placed intraoperatively. His abdomen was prepped and draped in normal sterile fashion. A midline incision was made from above the umbilicus down to above the pubis. Upon entering the peritoneal cavity, there was a large right lower quadrant phlegmon. There was no fecal contamination. There was a small amount of turbid fluid, but no feces within the abdomen. Using sharp and blunt dissection, the omentum was freed. The phlegmon was freed and there appeared to be an area of injury in the cecum. The cecum was mobilized to free up the right lower quadrant. He had a previous appendectomy. There was also some adhesive tissue near the terminal ileum where the phlegmon was. There was a small area of the sigmoid colon which was also involved. Sigmoid colon was also partially mobilized to help. Checked to make sure there was no reason for the free air from the sigmoid colon. Once this was done, sigmoid colon was checked. There was the area which was adherent to phlegmon, but this had no perforation within it. The small bowel was run from the ligament of Treitz down to the ileocecal valve and no injuries were seen here. The right colon was mobilized and there was an area which was reinforced with interrupted silks, where this area with a colotomy appeared to have been. The stomach and the duodenum were checked. There were no injuries here. Once this was ensured where the previous colotomy had been was repaired, a Main drain was placed in the pelvis. The small bowel was replaced into the peritoneal cavity. The abdomen was irrigated out and suctioned clear. The fascia was then closed with a running PDS. The delroy were used to close the skin. He tolerated the procedure well without complications, sent to post-recovery for a period of observation and sent to floor for his care. I attest to the content of the Intraoperative Record and any orders documented therein. Any exception s are noted below.
[2017-01-23] VITALS (9 sets, daily range): BP systolic 111–146; BP diastolic 65–95; PULSE 59–112; TEMP 36.5–38.1; O2SAT 90–96
[2017-01-23] MEDS ORDERED: PNEUMOCOCCAL ADMINISTRATION CHARGE ONE (00:45)
[2017-01-23] MEDS ORDERED: PNEUMOCOCCAL POLYSACCHARIDES 25 MCG/0.5 ML VIAL/SYR IM. ONE (00:45)
[2017-01-23] MEDS: METRONIDAZOLE / NSS 500 MG in PREMIXED NSS 100 ML IV SCH ×3 (04:10→20:37)
[2017-01-23] MEDS: PIPERACILL/TAZOBAC IV 3.375 GM in DEXTROSE 5% 100ML 100 ML IV SCH ×3 (04:10→21:55)
[2017-01-23] MEDS: SODIUM CHLORIDE 0.9% 1000ML 1,000 ML IV SCH ×3 (04:12→15:35)
[2017-01-23] MEDS: MoRPHine SULFATE 2 MG/ML CARP IV PRN (04:19)
[2017-01-23] MEDS: MoRPHine SULFATE 4 MG/ML 1 ML CARP\\VIAL IV PRN ×5 (05:52→20:39)
--- NOTE | 2017-01-23 08:16 | Anesthesiology Progress Note ---
Anesthesia Post Op Note Date & Time Jan 23, 2017 at 08:15 Vital Signs Vital Signs Past 12 Hours Date Time Temp Pulse Resp B/P (MAP) Pulse Ox O2 Delivery O2 Flow Rate FiO2 01/23/17 07:58 36.8 107 18 115/95 (102) 96 01/23/17 04:00 Nasal Cannula 2.0 01/23/17 03:37 36.5 107 21 113/74 (87) 95 Nasal Cannula 2.0 01/23/17 00:01 36.7 97 21 111/72 (85) 96 Nasal Cannula 2.0 01/23/17 00:00 Nasal Cannula 2.0 01/22/17 22:19 93 16 117/77 (90) 96 Nasal Cannula 2.0 01/22/17 21:19 83 16 106/71 (83) 97 Nasal Cannula 2.0 01/22/17 20:49 37.0 86 16 118/70 (86) 97 Nasal Cannula 2.0 01/22/17 20:19 36.8 88 16 105/69 (81) 96 Nasal Cannula 2.0 Notes Mental Status: alert / awake / arousable, participated in evaluation Pt Amnestic to Procedure: Yes Nausea / Vomiting: adequately controlled Pain: adequately controlled Airway Patency, RR, SpO2: stable & adequate BP & HR: stable & adequate Hydration State: stable & adequate Anesthetic Complications: no major complications apparent
--- NOTE | 2017-01-23 08:31 | Surgery Progress Note ---
Surgery Progress Note Date of Service Jan 23, 2017. Subjective Post OP Day: 1 + feeling well, + pain controlled, + diet (sips), No bowel movement, No flatus, No nausea, No vomiting Objective Vital Signs: Date Time Temp Pulse Resp B/P (MAP) Pulse Ox O2 Delivery O2 Flow Rate FiO2 01/23/17 07:58 36.8 107 18 115/95 (102) 96 01/23/17 04:00 Nasal Cannula 2.0 01/23/17 03:37 36.5 107 21 113/74 (87) 95 Nasal Cannula 2.0 01/23/17 00:01 36.7 97 21 111/72 (85) 96 Nasal Cannula 2.0 01/23/17 00:00 Nasal Cannula 2.0 01/22/17 22:19 93 16 117/77 (90) 96 Nasal Cannula 2.0 01/22/17 21:19 83 16 106/71 (83) 97 Nasal Cannula 2.0 01/22/17 20:49 37.0 86 16 118/70 (86) 97 Nasal Cannula 2.0 01/22/17 20:19 36.8 88 16 105/69 (81) 96 Nasal Cannula 2.0 01/22/17 20:04 36.8 90 15 110/74 (86) 97 Nasal Cannula 2.0 01/22/17 19:49 86 16 110/74 (86) 96 Nasal Cannula 2.0 01/22/17 19:34 37.0 86 16 119/77 (91) 97 Nasal Cannula 2.0 01/22/17 19:20 37.0 86 16 118/70 97 Nasal Cannula 2.0 01/22/17 19:19 37.1 88 16 116/75 (89) 96 Nasal Cannula 2.0 01/22/17 19:05 88 14 117/76 95 Nasal Cannula 2 01/22/17 18:55 88 18 112/75 95 Nasal Cannula 2 01/22/17 18:45 36.9 85 15 109/77 94 Nasal Cannula 2 01/22/17 18:35 81 14 104/81 95 Nasal Cannula 2 01/22/17 18:25 82 17 114/59 95 Nasal Cannula 2 01/22/17 18:15 79 18 103/69 95 Nasal Cannula 2 01/22/17 18:05 78 19 117/71 98 Oxymask 10 01/22/17 17:55 75 20 124/76 99 Oxymask 10 01/22/17 17:49 36.4 76 23 130/92 99 Oxymask 10 01/22/17 15:52 36.7 76 16 129/71 (90) 94 Room Air 01/22/17 15:37 36.4 76 18 127/69 93 01/22/17 15:30 76 18 127/69 93 Room Air 01/22/17 14:50 121/59 01/22/17 13:53 126/64 01/22/17 12:40 36.4 85 22 138/77 93 Room Air Physical Exam: Main drainage General Appearance: WD/WN, no apparent distress Head: normocephalic, atraumatic Neck: supple, trachea midline Respiratory/Chest: lungs clear Cardiovascular: regular rate, rhythm, no gallop, no murmur Abdomen: normal bowel sounds, soft, + distended, + tenderness Incision(s): clean, dry, intact (dressing) Extremities: non-tender, no pedal edema Laboratory Results: Results Past 24 Hours Test 01/22/17 13:10 01/22/17 13:25 01/22/17 14:57 01/23/17 00:11 Range/Units White Blood Count 19.12 4.8-10.8 K/uL Red Blood Count 4.59 4.7-6.1 M/uL Hemoglobin 14.3 14.0-18.0 g/dL Hematocrit 43.6 42-52 % Mean Corpuscular Volume 95.0 80-100 fL Mean Corpuscular Hemoglobin 31.2 25-34 pg Mean Corpuscular Hemoglobin Concent 32.8 32-36 g/dl Platelet Count 706 130-400 K/uL Mean Platelet Volume 9.9 7.4-10.4 fL RDW Standard Deviation 60.1 36.4-46.3 fL RDW Coefficient of Variation 17.3 11.5-14.5 % Nucleated RBC Absolute Count (auto) 0.05 0-0 K/uL Neutrophils % (Manual) 85.3 % Lymphocytes % (Manual) 4.3 % Monocytes % (Manual) 5.2 % Eosinophils % (Manual) 0.9 % Basophils % (Manual) 1.7 0-2 % Myelocytes % 2.6 % Nucleated Red Blood Cells % 0.2 % Neutrophils # (Manual) 16.31 1.4-6.5 K/uL Total Absolute Neutrophils 16.31 1.4-6.5 K/uL Lymphocytes # (Manual) 0.82 1.2-3.4 K/uL Total Absolute Lymphocytes 0.82 1.2-3.4 K/uL Monocytes # (Manual) 0.99 0.11-0.59 K/uL Eosinophils # (Manual) 0.17 0-0.5 K/uL Basophils # (Manual) 0.33 0-0.2 K/uL Myelocytes # 0.50 0-0 K/uL Toxic Granulation 1+ Dohle Bodies 1+ Echinocytes 1+ Sodium Level 135 136-145 mmol/L Potassium Level 3.9 3.5-5.1 mmol/L Chloride Level 102 98-107 mmol/L Carbon Dioxide Level 26 21-32 mmol/L Anion Gap 7.0 3-11 mmol/L Blood Urea Nitrogen 12 7-18 mg/dl Creatinine 0.90 0.60-1.40 mg/dl Est Creatinine Clear Calc Drug Dose 73.2 ml/min Estimated GFR () 96.5 Estimated GFR (Non- 83.3 BUN/Creatinine Ratio 13.6 10-20 Random Glucose 85 70-99 mg/dl Calcium Level 9.3 8.5-10.1 mg/dl Total Bilirubin 1.1 0.2-1 mg/dl Direct Bilirubin 0.4 0-0.2 mg/dl Aspartate Amino Transf (AST/SGOT) 16 15-37 U/L Alanine Aminotransferase (ALT/SGPT) 12 12-78 U/L Alkaline Phosphatase 111 45-117 U/L Total Protein 7.3 6.4-8.2 gm/dl Albumin 3.1 3.4-5.0 gm/dl Lipase 192 73-393 U/L Urine Color YELLOW Urine Appearance CLEAR CLEAR Urine pH 6.0 4.5-7.5 Urine Specific [place] 1.017 1.000-1.030 Urine Protein 1+ NEG Urine Glucose (UA) NEG NEG Urine Ketones 1+ NEG Urine Occult Blood TRACE NEG Urine Nitrite NEG NEG Urine Bilirubin NEG NEG Urine Urobilinogen NEG NEG Urine Leukocyte Esterase NEG NEG Urine WBC (Auto) 1-5 0-5 /hpf Urine RBC (Auto) 0-4 0-4 /hpf Urine Hyaline Casts (Auto) 0 0-5 /lpf Urine Epithelial Cells (Auto) 5-10 0-5 /lpf Urine Bacteria (Auto) NEG NEG Lactic Acid Level 1.3 0.4-2.0 mmol/L Bedside Glucose 120 70-99 mg/dl Test 01/23/17 07:00 Range/Units Bedside Glucose 116 70-99 mg/dl Assessment & Plan s/p ex lap with cecal injury with repair -keep ng and folry -OOB -con't IVF and IV abx
[2017-01-24] MEDS: SODIUM CHLORIDE 0.9% 1000ML 1,000 ML IV SCH ×3 (00:22→17:29)
[2017-01-24 03:29] VITALS: BP 138/69; PULSE 111; TEMP 36.7; O2SAT 90
[2017-01-24] MEDS: MoRPHine SULFATE 2 MG/ML CARP IV PRN ×6 (03:33→22:47)
[2017-01-24] MEDS: METRONIDAZOLE / NSS 500 MG in PREMIXED NSS 100 ML IV SCH ×3 (03:33→19:24)
[2017-01-24] MEDS: PIPERACILL/TAZOBAC IV 3.375 GM in DEXTROSE 5% 100ML 100 ML IV SCH ×3 (04:42→21:48)
[2017-01-24 07:12] LABS: HEMATOCRIT 28.1 % (42-52); MEAN CORPUSCULAR HEMOGLOBIN 30.8 pg (25-34); MEAN CORPUSCULAR HGB CONC 33.1 g/dl (32-36); MEAN PLATELET VOLUME 9.8 fL (7.4-10.4); PLATELET COUNT 851 K/uL (130-400); RED BLOOD COUNT 3.02 M/uL (4.7-6.1); WHITE BLOOD COUNT 20.79 K/uL (4.8-10.8)
--- NOTE | 2017-01-24 07:34 | Surgery Progress Note ---
Surgery Progress Note Date of Service Jan 24, 2017. Subjective Post OP Day: 2 + feeling well, + pain controlled, + diet (sips), No bowel movement, No flatus, No nausea, No vomiting Objective Vital Signs: Date Time Temp Pulse Resp B/P (MAP) Pulse Ox O2 Delivery O2 Flow Rate FiO2 01/24/17 04:00 Room Air 01/24/17 03:29 36.7 111 18 138/69 (92) 90 Room Air 01/24/17 00:00 Room Air 01/23/17 23:59 37.1 01/23/17 23:05 38.1 112 19 131/66 (87) 91 Room Air 01/23/17 20:00 Room Air 01/23/17 19:33 36.8 112 22 138/74 (95) 90 Room Air 01/23/17 15:46 36.9 106 20 130/74 (92) 90 Room Air 01/23/17 15:45 Room Air 01/23/17 12:14 36.8 100 18 122/65 (84) 95 01/23/17 12:00 Nasal Cannula 01/23/17 08:00 Nasal Cannula 01/23/17 07:58 36.8 107 18 115/95 (102) 96 Physical Exam: nasogastric drainage General Appearance: WD/WN, no apparent distress Head: normocephalic, atraumatic Neck: supple Respiratory/Chest: lungs clear Cardiovascular: regular rate, rhythm Abdomen: soft, + abnormal bowel sounds (quiet), + distended, + tenderness Incision(s): clean, dry, intact Extremities: non-tender, no pedal edema Laboratory Results: Results Past 24 Hours Test 01/23/17 11:14 01/24/17 06:37 Range/Units Bedside Glucose 145 70-99 mg/dl White Blood Count 20.79 4.8-10.8 K/uL Red Blood Count 3.02 4.7-6.1 M/uL Hemoglobin 9.3 14.0-18.0 g/dL Hematocrit 28.1 42-52 % Mean Corpuscular Volume 93.0 80-100 fL Mean Corpuscular Hemoglobin 30.8 25-34 pg Mean Corpuscular Hemoglobin Concent 33.1 32-36 g/dl Platelet Count 851 130-400 K/uL Mean Platelet Volume 9.8 7.4-10.4 fL RDW Standard Deviation 59.8 36.4-46.3 fL RDW Coefficient of Variation 17.7 11.5-14.5 % Nucleated RBC Absolute Count (auto) 0.25 0-0 K/uL Nucleated Red Blood Cells % 1.2 % Assessment & Plan s/p ex lap with cecal injury with repair -keep ng -OOB -con't IVF and IV abx s/p ex lap with cecal injury with repair -keep ng and folry -OOB -con't IVF and IV abx
[2017-01-24 07:40] VITALS: BP 121/67; PULSE 109; TEMP 36.9; O2SAT 95
[2017-01-24 07:44] LABS: ALB/GLOB RATIO 0.5 (0.9-2); BUN/CREATININE RATIO 19.8 (10-20); CALCIUM 7.7 mg/dl (8.5-10.1); CREATININE 0.9 mg/dl (0.60-1.40); POTASSIUM 3.7 mmol/L (3.5-5.1)
[2017-01-24 07:54] LABS: BASO ABS # 0.35 K/uL (0-0.2); BASOPHIL % 1.7 % (0-2); COMPLETE YES; DOHLE BODIES 1+; EOSINOPHIL % 1.7 %; LYMPH ABS # 0.54 K/uL (1.2-3.4); LYMPHOCYTE % 2.6 %; MYELOCYTE % 2.6 %; NEUTROPHILS % 86.2 %; TOXIC GRANULATION 1+
[2017-01-24 11:37] VITALS: BP 134/69; PULSE 86; TEMP 36.8; O2SAT 98
[2017-01-24 15:18] VITALS: BP 142/65; PULSE 98; TEMP 37.2; O2SAT 91
[2017-01-24 19:32] VITALS: BP 146/72; PULSE 101; TEMP 36.7; O2SAT 91
[2017-01-24 23:51] VITALS: BP 131/71; PULSE 98; TEMP 37.7; O2SAT 92
[2017-01-25] MEDS: MoRPHine SULFATE 2 MG/ML CARP IV PRN ×4 (02:38→17:57)
[2017-01-25] MEDS: SODIUM CHLORIDE 0.9% 1000ML 1,000 ML IV SCH ×3 (02:43→17:44)
[2017-01-25] MEDS: METRONIDAZOLE / NSS 500 MG in PREMIXED NSS 100 ML IV SCH ×3 (04:04→20:23)
[2017-01-25 04:36] VITALS: BP 134/71; PULSE 89; TEMP 36.9; O2SAT 93
[2017-01-25] MEDS: PIPERACILL/TAZOBAC IV 3.375 GM in DEXTROSE 5% 100ML 100 ML IV SCH ×3 (05:12→20:28)
--- NOTE | 2017-01-25 07:33 | Surgery Progress Note ---
Surgery Progress Note Date of Service Jan 25, 2017. Subjective Post OP Day: 3 + feeling well, + flatus, + pain controlled, + diet (sips), No nausea, No vomiting Objective Vital Signs: Date Time Temp Pulse Resp B/P (MAP) Pulse Ox O2 Delivery O2 Flow Rate FiO2 01/25/17 04:36 36.9 89 22 134/71 (92) 93 Room Air 01/25/17 04:00 Room Air 01/25/17 00:02 Room Air 01/24/17 23:51 37.7 98 22 131/71 (91) 92 Room Air 01/24/17 20:00 Room Air 01/24/17 19:32 36.7 101 20 146/72 (96) 91 Room Air 01/24/17 16:00 Room Air 01/24/17 15:18 37.2 98 20 142/65 (90) 91 Room Air 01/24/17 12:00 Room Air 01/24/17 11:37 36.8 86 20 134/69 (90) 98 01/24/17 08:00 Room Air 01/24/17 07:40 36.9 109 18 121/67 (85) 95 Physical Exam: Main drainage (serosanguinous) General Appearance: WD/WN, no apparent distress Head: normocephalic, atraumatic Neck: supple Respiratory/Chest: lungs clear Cardiovascular: regular rate, rhythm Abdomen: normal bowel sounds, non distended, soft, + tenderness Incision(s): clean, dry, intact Extremities: non-tender, no pedal edema Laboratory Results: Results Past 24 Hours Test 01/24/17 18:55 Range/Units Bedside Glucose 104 70-99 mg/dl Assessment & Plan s/p ex lap with cecal injury with repair -remove ng -OOB and ambulate -decrease IVF -IV abx -clears s/p ex lap with cecal injury with repair -keep ng -OOB -con't IVF and IV abx
[2017-01-25 07:55] VITALS: BP 148/89; PULSE 93; TEMP 37; O2SAT 98
[2017-01-25] MEDS: OXYCODONE/ACETAMINOPHEN 5-325 TAB PO PRN ×2 (09:32→14:26)
[2017-01-25 11:35] VITALS: BP 116/67; PULSE 80; TEMP 36.8; O2SAT 96
[2017-01-25 15:25] VITALS: BP 129/65; PULSE 77; TEMP 36.9; O2SAT 94
[2017-01-25 19:41] VITALS: BP 120/61; PULSE 80; TEMP 36.9; O2SAT 95
[2017-01-25 23:35] VITALS: BP 156/77; PULSE 86; TEMP 36.9; O2SAT 94
[2017-01-25] MEDS: MoRPHine SULFATE 4 MG/ML 1 ML CARP\\VIAL IV PRN (23:51)
[2017-01-26] MEDS: SODIUM CHLORIDE 0.9% 1000ML 1,000 ML IV SCH ×2 (01:17→13:57)
[2017-01-26 03:06] VITALS: BP 135/81; PULSE 99; TEMP 37.1; O2SAT 94
[2017-01-26] MEDS: ONDANSETRON INJ 2 MG/ML 2 ML VIAL IV PRN ×2 (03:09→07:52)
[2017-01-26] MEDS: MoRPHine SULFATE 4 MG/ML 1 ML CARP\\VIAL IV PRN ×3 (03:10→23:20)
[2017-01-26] MEDS: PIPERACILL/TAZOBAC IV 3.375 GM in DEXTROSE 5% 100ML 100 ML IV SCH ×3 (04:22→20:28)
[2017-01-26] MEDS: METRONIDAZOLE / NSS 500 MG in PREMIXED NSS 100 ML IV SCH ×3 (04:22→20:29)
[2017-01-26 06:46] LABS: HEMATOCRIT 32.4 % (42-52); MEAN CELL VOLUME 95.3 fL (80-100); MEAN CORPUSCULAR HGB CONC 31.5 g/dl (32-36); MEAN PLATELET VOLUME 9.8 fL (7.4-10.4); PLATELET COUNT 998 K/uL (130-400); WHITE BLOOD COUNT 26.28 K/uL (4.8-10.8)
[2017-01-26 07:25] LABS: ANISOCYTOSIS PRESENT; COMPLETE YES; ECHINOCYTES 1+; EOSINOPHIL % 5.9 %; HYPERSEGMENTED POLYS 1+; LYMPH ABS # 1.34 K/uL (1.2-3.4); LYMPHOCYTE % 5.1 %; META ABS # 0.45 K/uL (0-0); METAMYELOCYTE % 1.7 %; MYELOCYTE % 5.9 %; NEUTROPHILS % 76.4 %; PLASMA CELL 0.8 %; POIKILOCYTOSIS PRESENT; POLYCHROMASIA 1+; SPHEROCYTE 1+
[2017-01-26 07:29] LABS: BUN/CREATININE RATIO 17.2 (10-20); CALCIUM 7.5 mg/dl (8.5-10.1); CREATININE 0.5 mg/dl (0.60-1.40); POTASSIUM 3.4 mmol/L (3.5-5.1)
[2017-01-26 07:32] LABS: ALB/GLOB RATIO 0.6 (0.9-2)
[2017-01-26] MEDS ORDERED: SODIUM CHLORIDE 0.9% 1000ML 500 ML IV ONE (07:53)
[2017-01-26] MEDS: OXYCODONE/ACETAMINOPHEN 5-325 TAB PO PRN ×4 (07:53→21:51)
[2017-01-26 07:57] VITALS: BP 154/63; PULSE 90; TEMP 36.8; O2SAT 96
[2017-01-26] MEDS ORDERED: SODIUM CHLORIDE 0.9% 1000ML 1,000 ML IV ONE (08:45)
[2017-01-26 11:14] VITALS: BP 145/81; PULSE 89; TEMP 36.8; O2SAT 96
[2017-01-26 15:55] VITALS: BP 143/73; PULSE 86; TEMP 36.8; O2SAT 95
--- NOTE | 2017-01-26 16:35 | Surgery Progress Note ---
Surgery Progress Note Date of Service Jan 26, 2017. Subjective Post OP Day: 4 Had some nausea and small emesis last night due to beef broth Nothing since Abdominal soreness from dry heaves otherwise tolerating clear liquids No bowel movement, small amount of flatus but not much. Feels like has to have a bowel movement later today no chills or sweats Objective Vital Signs: Date Time Temp Pulse Resp B/P (MAP) Pulse Ox O2 Delivery O2 Flow Rate FiO2 01/26/17 15:55 36.8 86 18 143/73 (96) 95 01/26/17 12:00 Room Air 01/26/17 11:14 36.8 89 18 145/81 (102) 96 01/26/17 08:00 Room Air 01/26/17 07:57 36.8 90 18 154/63 (93) 96 01/26/17 04:00 Room Air 01/26/17 03:06 37.1 99 19 135/81 (99) 94 Room Air 01/25/17 23:59 Room Air 01/25/17 23:35 36.9 86 20 156/77 (103) 94 Room Air 01/25/17 20:00 Room Air 01/25/17 19:41 36.9 80 20 120/61 (80) 95 Room Air General Appearance: WD/WN, no apparent distress Head: normocephalic, atraumatic Neck: trachea midline Respiratory/Chest: no respiratory distress, no accessory muscle use Abdomen: soft, no organomegaly, no pulsatile mass, + distended, + tenderness ( appropriate post op, generalized to mild palpation) Incision(s): clean, dry, intact, no erythema, no drainage Laboratory Results: Results Past 24 Hours Test 01/26/17 06:16 Range/Units White Blood Count 26.28 4.8-10.8 K/uL Red Blood Count 3.40 4.7-6.1 M/uL Hemoglobin 10.2 14.0-18.0 g/dL Hematocrit 32.4 42-52 % Mean Corpuscular Volume 95.3 80-100 fL Mean Corpuscular Hemoglobin 30.0 25-34 pg Mean Corpuscular Hemoglobin Concent 31.5 32-36 g/dl Platelet Count 998 130-400 K/uL Mean Platelet Volume 9.8 7.4-10.4 fL RDW Standard Deviation 62.6 36.4-46.3 fL RDW Coefficient of Variation 18.1 11.5-14.5 % Nucleated RBC Absolute Count (auto) 0.70 0-0 K/uL Neutrophils % (Manual) 76.4 % Lymphocytes % (Manual) 5.1 % Monocytes % (Manual) 4.2 % Eosinophils % (Manual) 5.9 % Metamyelocytes % 1.7 % Myelocytes % 5.9 % Nucleated Red Blood Cells % 2.7 % Neutrophils # (Manual) 20.08 1.4-6.5 K/uL Total Absolute Neutrophils 20.08 1.4-6.5 K/uL Lymphocytes # (Manual) 1.34 1.2-3.4 K/uL Total Absolute Lymphocytes 1.34 1.2-3.4 K/uL Monocytes # (Manual) 1.10 0.11-0.59 K/uL Eosinophils # (Manual) 1.55 0-0.5 K/uL Metamyelocytes # 0.45 0-0 K/uL Myelocytes # 1.55 0-0 K/uL Hypersegmented Polys 1+ Plasma Cells % 0.8 % Polychromasia 1+ Poikilocytosis PRESENT Anisocytosis PRESENT Spherocytes 1+ Echinocytes 1+ Sodium Level 145 136-145 mmol/L Potassium Level 3.4 3.5-5.1 mmol/L Chloride Level 115 98-107 mmol/L Carbon Dioxide Level 24 21-32 mmol/L Anion Gap 6.0 3-11 mmol/L Blood Urea Nitrogen 9 7-18 mg/dl Creatinine 0.50 0.60-1.40 mg/dl Est Creatinine Clear Calc Drug Dose 131.8 ml/min Estimated GFR () 122.9 Estimated GFR (Non- 106.0 BUN/Creatinine Ratio 17.2 10-20 Random Glucose 99 70-99 mg/dl Calcium Level 7.5 8.5-10.1 mg/dl Total Bilirubin 0.7 0.2-1 mg/dl Aspartate Amino Transf (AST/SGOT) 20 15-37 U/L Alanine Aminotransferase (ALT/SGPT) 15 12-78 U/L Alkaline Phosphatase 45 45-117 U/L Total Protein 5.1 6.4-8.2 gm/dl Albumin 2.0 3.4-5.0 gm/dl Globulin 3.1 2.5-4.0 gm/dl Albumin/Globulin Ratio 0.6 0.9-2 Assessment & Plan POD # 4 s/p ex lap repair of cecal injury -vitals stable, afebrile - increase in leukocytosis of 26 today (20k 01/24/17) - +nausea - pain moderate - +flatus, no BM Plan: Continue PO Percocet and IV pain management as needed Continue IV fluids, will give 1L bolus Continue clear liquids, advised to stop if any nausea encourage OOB to chair and ambulation Continue IV antibiotics Repeat am labs, trend WBC Continue SCDs Await return of bowel function Dr. Jane to cover this weekend Dr. Thompson has seen and examined patient, agrees with above
--- NOTE | 2017-01-26 16:39 | Discharge Instructions ---
Discharge Instructions Date of Service Jan 26, 2017. Admission Reason for Admission: Perforated Abominal Viscus Discharge Discharge Diagnosis / Problem: same Discharge Goals Goal(s): Decrease discomfort, Improve function Activity Recommendations Activity Limitations: as noted below no heavy lifting over 10 pounds for at least 6 weeks no strenuous activity until cleared by surgeon Walking and light activity is encouraged to prevent blood clots from forming No submerging incisions underwater for 2 weeks or until full healed (no bathing , swimming, or hot tubs) No driving while taking narcotic pain medication or until you are pain free . Instructions / Follow-Up Instructions / Follow-Up You may shower You do not need to keep dressing on incision unless there is drainage Surgical delroy will be removed in office, please call [phone] to make an appointment in 10 days Current Hospital Diet Patient's current hospital diet: Clear Liquid Diet Discharge Diet Recommended Diet: Regular Diet Procedures Procedures Performed: Exploratory Laparotomy, repair of cecal colotomy Pending Studies Studies pending at discharge: no Medical Emergencies . Who to Call and When: Medical Emergencies: If at any time you feel your situation is an emergency, please call 911 immediately. . Non-Emergent Contact Non-Emergency issues call your: Primary Care Provider, Surgeon Call Non-Emergent contact if: you have a fever, temperature is above 101.5, your pain is not controlled, your pain is worsening, your pain is unusual for you, wound has increased drainage, wound has increased redness, wound has increased pain . "Provider Documentation" section prepared by Elizabeth Griffith. . VTE Core Measure Inpt VTE Proph given/why not?: SCD's [place] Drug Monitoring Program Search Results: patient reviewed within database, no issues identified
[2017-01-26] MEDS ORDERED: OXYC-57 PO (17:48)
[2017-01-26 19:15] VITALS: BP 151/76; PULSE 94; TEMP 37; O2SAT 93
[2017-01-26 23:52] VITALS: BP 151/76; PULSE 104; TEMP 37.5; O2SAT 92
[2017-01-27 03:50] VITALS: BP_SYST 128; BP_SYST 152; BP_DIAS 72; BP_DIAS 82; PULSE 90; TEMP 36.7; TEMP 37.1; O2SAT 92; O2SAT 95
[2017-01-27] MEDS: SODIUM CHLORIDE 0.9% 1000ML 1,000 ML IV SCH (04:17)
[2017-01-27] MEDS: PIPERACILL/TAZOBAC IV 3.375 GM in DEXTROSE 5% 100ML 100 ML IV SCH ×3 (04:35→19:59)
[2017-01-27] MEDS: METRONIDAZOLE / NSS 500 MG in PREMIXED NSS 100 ML IV SCH ×3 (04:36→20:00)
[2017-01-27] MEDS: OXYCODONE/ACETAMINOPHEN 5-325 TAB PO PRN ×5 (04:45→22:24)
[2017-01-27 06:30] LABS: HEMATOCRIT 31.5 % (42-52); MEAN CELL VOLUME 95.5 fL (80-100); MEAN CORPUSCULAR HEMOGLOBIN 30.6 pg (25-34); MEAN CORPUSCULAR HGB CONC 32.1 g/dl (32-36); MEAN PLATELET VOLUME 9.8 fL (7.4-10.4); PLATELET COUNT 995 K/uL (130-400); WHITE BLOOD COUNT 27.82 K/uL (4.8-10.8)
[2017-01-27 07:04] LABS: BUN/CREATININE RATIO 14.7 (10-20); CALCIUM 7.2 mg/dl (8.5-10.1); CREATININE 0.55 mg/dl (0.60-1.40); POTASSIUM 3.7 mmol/L (3.5-5.1)
[2017-01-27 08:08] VITALS: BP 134/62; PULSE 66; TEMP 36.9; O2SAT 97
[2017-01-27 11:35] VITALS: BP 116/65; PULSE 72; TEMP 36.8; O2SAT 96
--- NOTE | 2017-01-27 14:42 | Surgery Progress Note ---
Surgery Progress Note Date of Service Jan 27, 2017. Subjective POD#5 from ex-lap, repair of cecal injury with phlegmon. Doing well, ambulating , tolerating clears. +flatus this am, stomach feels better. Denies fevers or nausea. No bm yet. Objective Vital Signs: Date Time Temp Pulse Resp B/P (MAP) Pulse Ox O2 Delivery O2 Flow Rate FiO2 01/27/17 12:00 Room Air 01/27/17 11:35 36.8 72 18 116/65 (82) 96 01/27/17 08:08 36.9 66 18 134/62 (86) 97 01/27/17 08:00 Room Air 01/27/17 04:00 Room Air 01/27/17 03:50 37.1 90 18 152/82 (105) 92 Room Air 01/26/17 23:59 Room Air 01/26/17 23:52 37.5 104 19 151/76 (101) 92 Room Air 01/26/17 20:00 Room Air 01/26/17 19:15 37.0 94 18 151/76 (101) 93 Room Air 01/26/17 16:00 Room Air 01/26/17 15:55 36.8 86 18 143/73 (96) 95 Physical Exam: CORWIN drainage (45cc serosanguinous) General Appearance: WD/WN, no apparent distress Head: normocephalic, atraumatic Neck: supple, no adenopathy, thyroid normal, no JVD, no carotid bruits, trachea midline Respiratory/Chest: chest non-tender, lungs clear, normal breath sounds, no respiratory distress, no accessory muscle use Cardiovascular: regular rate, rhythm, no edema, no gallop, no JVD, no murmur Abdomen: normal bowel sounds, non tender, soft, + distended Incision(s): clean, dry, intact, no erythema, no drainage Extremities: normal range of motion, non-tender, normal inspection, no pedal edema Laboratory Results: Results Past 24 Hours Test 01/27/17 06:18 Range/Units White Blood Count 27.82 4.8-10.8 K/uL Red Blood Count 3.30 4.7-6.1 M/uL Hemoglobin 10.1 14.0-18.0 g/dL Hematocrit 31.5 42-52 % Mean Corpuscular Volume 95.5 80-100 fL Mean Corpuscular Hemoglobin 30.6 25-34 pg Mean Corpuscular Hemoglobin Concent 32.1 32-36 g/dl RDW Standard Deviation 63.7 36.4-46.3 fL RDW Coefficient of Variation 18.5 11.5-14.5 % Platelet Count 995 130-400 K/uL Mean Platelet Volume 9.8 7.4-10.4 fL Nucleated RBC Absolute Count (auto) 0.77 0-0 K/uL Nucleated Red Blood Cells % 2.8 % Sodium Level 145 136-145 mmol/L Potassium Level 3.7 3.5-5.1 mmol/L Chloride Level 114 98-107 mmol/L Carbon Dioxide Level 27 21-32 mmol/L Anion Gap 4.0 3-11 mmol/L Blood Urea Nitrogen 8 7-18 mg/dl Creatinine 0.55 0.60-1.40 mg/dl Est Creatinine Clear Calc Drug Dose 119.8 ml/min Estimated GFR () 118.1 Estimated GFR (Non- 101.9 BUN/Creatinine Ratio 14.7 10-20 Random Glucose 98 70-99 mg/dl Calcium Level 7.2 8.5-10.1 mg/dl Assessment & Plan POD#5 ex-lap for cecal injury with phlegmon. Overall he is doing well. His vital signs are stable and he is passing flatus. His WBC remains quite elevated but appears to be plateauing. Plan advance to full liquids ambulation, IS cbc in am heparin sqtid will monitor, if any clinical change or worsening leukocytosis, will consider CT scan Amisha Jane, DO
[2017-01-27 15:04] VITALS: BP 116/58; PULSE 81; TEMP 36.8; O2SAT 94
[2017-01-27 16:25] LABS: INR 1.4 (0.9-1.1); PARTIAL THROMBOPLASTIN RATIO 1.2; PROTHROMBIN TIME (PATIENT) 14.9 SECONDS (9.0-12.0)
[2017-01-27 19:15] VITALS: BP 134/69; PULSE 83; TEMP 37; O2SAT 20
[2017-01-27] MEDS: HEPARIN SOD 5000 UNIT/0.5 ML CARP SQ SCH (22:24)
[2017-01-27 23:40] VITALS: BP 148/75; PULSE 86; TEMP 37.3; O2SAT 93
[2017-01-28] MEDS: SODIUM CHLORIDE 0.9% 1000ML 1,000 ML IV SCH ×2 (01:44→01:45)
[2017-01-28 04:54] VITALS: BP 132/66; PULSE 82; TEMP 37.1; O2SAT 95
[2017-01-28] MEDS: PIPERACILL/TAZOBAC IV 3.375 GM in DEXTROSE 5% 100ML 100 ML IV SCH ×3 (05:00→20:32)
[2017-01-28] MEDS: METRONIDAZOLE / NSS 500 MG in PREMIXED NSS 100 ML IV SCH ×3 (05:00→20:32)
[2017-01-28] MEDS: HEPARIN SOD 5000 UNIT/0.5 ML CARP SQ SCH ×3 (06:24→21:48)
[2017-01-28] MEDS: OXYCODONE/ACETAMINOPHEN 5-325 TAB PO PRN ×4 (06:27→23:02)
[2017-01-28 07:32] LABS: HEMATOCRIT 28.5 % (42-52); MEAN CELL VOLUME 94.1 fL (80-100); MEAN CORPUSCULAR HGB CONC 31.9 g/dl (32-36); MEAN PLATELET VOLUME 9.7 fL (7.4-10.4); PLATELET COUNT 913 K/uL (130-400); RED BLOOD COUNT 3.03 M/uL (4.7-6.1); WHITE BLOOD COUNT 31.96 K/uL (4.8-10.8)
[2017-01-28 07:46] VITALS: BP 114/67; PULSE 95; TEMP 36.7; O2SAT 93
[2017-01-28 07:51] LABS: ANISOCYTOSIS PRESENT; BASO ABS # 0.54 K/uL (0-0.2); BASOPHIL % 1.7 % (0-2); COMPLETE YES; ECHINOCYTES 1+; EOSINOPHIL % 7.7 %; LYMPH ABS # 1.92 K/uL (1.2-3.4); META ABS # 0.83 K/uL (0-0); METAMYELOCYTE % 2.6 %; MYELOCYTE % 3.4 %; NEUTROPHILS % 75.2 %; POLYCHROMASIA 1+
--- NOTE | 2017-01-28 09:19 | Surgery Progress Note ---
Surgery Progress Note Date of Service Jan 28, 2017. Subjective POD#6 from ex-lap, repair of cecal injury with phlegmon. Doing well, ambulating , tolerating full liquids. +flatus, denies fevers or nausea. small bowel movements yesterday. No joint pain. WBC 32 this AM Objective Vital Signs: Date Time Temp Pulse Resp B/P (MAP) Pulse Ox O2 Delivery O2 Flow Rate FiO2 01/28/17 08:00 Room Air 01/28/17 07:46 36.7 95 18 114/67 (83) 93 Room Air 01/28/17 04:54 37.1 82 18 132/66 (88) 95 Room Air 01/28/17 04:00 Room Air 01/27/17 23:59 Room Air 01/27/17 23:40 37.3 86 18 148/75 (99) 93 Room Air 01/27/17 20:00 Room Air 01/27/17 19:15 37.0 83 83 134/69 (90) 20 Room Air 01/27/17 16:00 Room Air 01/27/17 15:04 36.8 81 20 116/58 (77) 94 Room Air 01/27/17 12:00 Room Air 01/27/17 11:35 36.8 72 18 116/65 (82) 96 Physical Exam: CORWIN drainage (Right scant darker serosanguinous, left serous) General Appearance: WD/WN, no apparent distress Head: normocephalic, atraumatic Neck: supple, no adenopathy, thyroid normal, no JVD, no carotid bruits, trachea midline Respiratory/Chest: chest non-tender, lungs clear, normal breath sounds, no respiratory distress, no accessory muscle use Cardiovascular: regular rate, rhythm, no edema, no gallop, no JVD, no murmur Abdomen: normal bowel sounds, non tender, non distended, soft, no organomegaly , no pulsatile mass Incision(s): clean, dry, intact, no erythema, no drainage Extremities: normal range of motion, non-tender, normal inspection, no pedal edema, no calf tenderness, normal capillary refill, pelvis stable Laboratory Results: Results Past 24 Hours Test 01/27/17 15:53 01/28/17 06:51 Range/Units Prothrombin Time 14.9 9.0-12.0 SECONDS Prothromb Time International Ratio 1.4 0.9-1.1 Activated Partial Thromboplast Time 31.0 21.0-31.0 SECONDS Partial Thromboplastin Ratio 1.2 White Blood Count 31.96 4.8-10.8 K/uL Red Blood Count 3.03 4.7-6.1 M/uL Hemoglobin 9.1 14.0-18.0 g/dL Hematocrit 28.5 42-52 % Mean Corpuscular Volume 94.1 80-100 fL Mean Corpuscular Hemoglobin 30.0 25-34 pg Mean Corpuscular Hemoglobin Concent 31.9 32-36 g/dl Platelet Count 913 130-400 K/uL Mean Platelet Volume 9.7 7.4-10.4 fL RDW Standard Deviation 61.6 36.4-46.3 fL RDW Coefficient of Variation 18.4 11.5-14.5 % Nucleated RBC Absolute Count (auto) 0.71 0-0 K/uL Neutrophils % (Manual) 75.2 % Lymphocytes % (Manual) 6.0 % Monocytes % (Manual) 3.4 % Eosinophils % (Manual) 7.7 % Basophils % (Manual) 1.7 0-2 % Metamyelocytes % 2.6 % Myelocytes % 3.4 % Nucleated Red Blood Cells % 2.2 % Neutrophils # (Manual) 24.03 1.4-6.5 K/uL Total Absolute Neutrophils 24.03 1.4-6.5 K/uL Lymphocytes # (Manual) 1.92 1.2-3.4 K/uL Total Absolute Lymphocytes 1.92 1.2-3.4 K/uL Monocytes # (Manual) 1.09 0.11-0.59 K/uL Eosinophils # (Manual) 2.46 0-0.5 K/uL Basophils # (Manual) 0.54 0-0.2 K/uL Metamyelocytes # 0.83 0-0 K/uL Myelocytes # 1.09 0-0 K/uL Polychromasia 1+ Anisocytosis PRESENT Echinocytes 1+ Assessment & Plan POD#6 ex-lap for cecal injury with phlegmon. Overall he is doing well. His vital signs are stable and he is passing flatus and tolerating full liquids. His WBC continues to rise. Will obtain CT to rule out abscess. Unsure if this could be due to PMR since he is not on steroids, but no joint pain per patient. Plan CT abd/pel with PO and IV contrast cont full liquids, will advance if CT unremarkable ambulation, IS cbc in am heparin sqtid D. Johnathan Jane, DO
[2017-01-28] MEDS ORDERED: OPTIRAY 320 IV PRN (10:15)
[2017-01-28 11:22] VITALS: BP 133/69; PULSE 86; TEMP 36.6; O2SAT 95
--- NOTE | 2017-01-28 12:52 | DIAGNOSTIC IMAGING REPORT ---
ABD/PELVIS IV AND ORAL CONT CLINICAL HISTORY: 76 years-old Male presenting with leukocytosis s/p surgery. TECHNIQUE: Multidetector CT of the abdomen and pelvis was performed after the administration of oral and intravenous contrast. IV contrast: 94 mL of Optiray 320. A dose lowering technique was used consistent with the principles of ALARA (as low as reasonably achievable). COMPARISON: 01/22/2017. CT DOSE (mGy.cm): The estimated cumulative dose is 877.16 mGy.cm. FINDINGS: Hosiery Knitter topogram: Midline surgical skin delroy and pelvic surgical drain in place. Lung bases: Interval increase in size of the now small to moderate right pleural effusion. Trace left pleural effusion. Bandlike opacities in the right lower lobe likely atelectasis or scarring. Few nodular opacities in the right lower lobe new from prior. Normal heart size. Aortic valve and coronary artery calcification. No pericardial effusion. Liver: Congenital hypoplasia of the medial segments of the left hepatic lobe. No focal lesion. Patent hepatic vasculature. Biliary: No intrahepatic or extrahepatic biliary ductal dilatation. Normal gallbladder. Pancreas: Normal. Spleen: Top normal in size. Adrenal glands: Normal. Kidneys and ureters: Exophytic simple appearing right renal cyst. No hydronephrosis. No nephrolithiasis. Normal ureters. Bladder: The urinary bladder contains gas likely from recent catheterization. Pelvic organs: Prostate enlargement likely secondary to benign prostatic hyperplasia. Bowel: Post surgical changes of appendectomy likely present. A surgical drain has been placed into the pelvis. A second surgical drain is placed in the anterior right abdomen. No focal fluid collection at their termini although minimal free fluid is noted anteriorly in the right mid abdomen. Diverticulosis of the sigmoid colon with pericolonic fat stranding slightly decreased from prior. No radiopaque anastomotic line is evident in the sigmoid colon although the length appears decreased from prior, possibly indicating partial sigmoidectomy with a handsewn anastomosis. Peritoneal cavity: Again noted are multiple foci of free intraperitoneal gas in the superior pelvis and along the left abdomen compatible with perforation. Small amount of ascites anteriorly in the abdomen. No focal fluid collection to suggest intra-abdominal abscess. Vasculature: Atherosclerosis of the normal caliber abdominal aorta. IVC patent. Lymph nodes: No enlarged lymph nodes in the abdomen or pelvis. Abdominal wall: Few foci of gas are noted adjacent to the new midline surgical incision site. Musculoskeletal: Degenerative changes of the spine. Degenerative changes of the sacroiliac joints. IMPRESSION: 1. Persistent although decreased inflammatory changes associated with complicated diverticulitis in the superior pelvis and left lower quadrant. Persistent inflammatory changes could relate to recent surgery or ongoing infection. Numerous foci of free gas could relate to recent perforation or surgery. Two surgical drains, one in the anterior abdomen and one in the superior pelvis. Minimal fluid in the right anterior mid abdomen. No intra-abdominal abscess. 2. Interval development of few nodular opacities in the right lower lobe raising concern for pneumonia. 3. Interval increase in size of the now small to moderate right pleural effusion. Electronically signed by: Félix Brandon M.D. 01/28/2017 12:50 PM Dictated Date/Time: 01/28/2017 12:40 PM
[2017-01-28 14:59] VITALS: BP 123/66; PULSE 86; TEMP 36.8; O2SAT 95
[2017-01-28 19:22] VITALS: BP 134/73; PULSE 88; TEMP 36.9; O2SAT 87
[2017-01-29] VITALS (9 sets, daily range): BP systolic 117–135; BP diastolic 61–73; PULSE 72–106; TEMP 36.6–37.3; O2SAT 93–96
[2017-01-29] MEDS: SODIUM CHLORIDE 0.9% 1000ML 1,000 ML IV SCH (03:36)
[2017-01-29] MEDS: PIPERACILL/TAZOBAC IV 3.375 GM in DEXTROSE 5% 100ML 100 ML IV SCH ×3 (04:12→22:01)
[2017-01-29] MEDS: METRONIDAZOLE / NSS 500 MG in PREMIXED NSS 100 ML IV SCH ×3 (04:19→22:01)
[2017-01-29] MEDS: HEPARIN SOD 5000 UNIT/0.5 ML CARP SQ SCH ×3 (06:09→22:03)
[2017-01-29 08:12] LABS: HEMATOCRIT 32.2 % (42-52); MEAN CELL VOLUME 95.3 fL (80-100); MEAN CORPUSCULAR HEMOGLOBIN 29.6 pg (25-34); MEAN CORPUSCULAR HGB CONC 31.1 g/dl (32-36); RED BLOOD COUNT 3.38 M/uL (4.7-6.1); WHITE BLOOD COUNT 36.21 K/uL (4.8-10.8)
[2017-01-29 08:21] LABS: MEAN PLATELET VOLUME 9.7 fL (7.4-10.4); PLATELET COUNT 1030 K/uL (130-400); PLT ESTIMATE INCREASED
[2017-01-29] MEDS: OXYCODONE/ACETAMINOPHEN 5-325 TAB PO PRN ×4 (08:52→22:04)
--- NOTE | 2017-01-29 09:23 | Surgery Progress Note ---
Surgery Progress Note Date of Service Jan 29, 2017. Subjective Post OP Day: POD # 7 + feeling well, + complaints (some back and abdominal soreness), + ambulating, + bowel movement, + flatus, + pain controlled, + diet (tolerating full liquids) , No chest pain, No SOB, No nausea, No vomiting Objective Vital Signs: Date Time Temp Pulse Resp B/P (MAP) Pulse Ox O2 Delivery O2 Flow Rate FiO2 01/29/17 08:45 37.1 106 16 124/65 (84) 94 Room Air 01/29/17 04:04 36.6 92 18 135/70 (91) 93 Room Air 01/29/17 04:00 Room Air 01/29/17 00:14 37.3 84 17 117/65 (82) 96 Room Air 01/28/17 23:59 Room Air 01/28/17 20:00 Room Air 01/28/17 19:22 36.9 88 18 134/73 (93) 87 01/28/17 16:00 Room Air 01/28/17 14:59 36.8 86 123/66 (85) 95 Room Air 01/28/17 12:00 Room Air 01/28/17 11:22 36.6 86 16 133/69 (90) 95 Room Air Physical Exam: CORWIN drainage (serosanguineous) General Appearance: WD/WN, no apparent distress Head: normocephalic, atraumatic Neck: trachea midline Respiratory/Chest: no respiratory distress, no accessory muscle use Abdomen: non tender, non distended, soft, no organomegaly, no pulsatile mass, + pertinent finding (midline abdominal incision present with delroy) Incision(s): clean, dry, intact, no erythema, no drainage, findings (delroy present) Laboratory Results: Results Past 24 Hours Test 01/29/17 07:44 Range/Units White Blood Count 36.21 4.8-10.8 K/uL Red Blood Count 3.38 4.7-6.1 M/uL Hemoglobin 10.0 14.0-18.0 g/dL Hematocrit 32.2 42-52 % Mean Corpuscular Volume 95.3 80-100 fL Mean Corpuscular Hemoglobin 29.6 25-34 pg Mean Corpuscular Hemoglobin Concent 31.1 32-36 g/dl RDW Standard Deviation 63.6 36.4-46.3 fL RDW Coefficient of Variation 18.7 11.5-14.5 % Platelet Count 1030 130-400 K/uL Mean Platelet Volume 9.7 7.4-10.4 fL Nucleated RBC Absolute Count (auto) 0.65 0-0 K/uL Nucleated Red Blood Cells % 1.8 % Platelet Estimate INCREASED Assessment & Plan POD # 7 s/p ex lap repair of cecal injury - vitals stable, afebrile - increase in leukocytosis to 36k today - abdominal pain minimal - + bowel function Plan: Continue PO Percocet and IV pain management as needed Discontinue IV fluids as he is taking PO well Advance diet to low fiber diet encourage OOB to chair and ambulation Continue IV antibiotics Repeat am labs, trend WBC Will restart PO Propranolol and Atorvastatin today Hematology consultation given history of Leukocytosis (work-up as an outpatient by Dr. Uriostegui) and increasing Leukocytosis post op (Ct scan unremarkable for intra-abdominal abscess) Continue SCDs Continue CORWIN drain to bulb suction, will remove prior to discharge Dr. Thompson has seen patient, agrees with above
[2017-01-29] MEDS: PROPRANOLOL HCL 80 MG LA CAP PO SCH (10:58)
[2017-01-29] MEDS: ATORVASTATIN 40 MG TAB PO SCH (10:58)
--- NOTE | 2017-01-29 17:53 | Medical Consult ---
Consultation Date of Consultation: Jan 29, 2017. Attending Physician: Johnathan Thompson M.D. History of Present Illness Hematology consult: Evaluation and management of leukocytosis and thrombocytosis. Date of consultation: 01/29/2017. Consult requested by Dr. 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 Uriostegui after 7 years for leukocytosis, WBC count was around 20,000 with a platelet count around 774,000. He has underlying polymyalgia rheumatica, on a low-dose of prednisone at 2 mg per day, takes baby aspirin every day, additional workup done recently on 01/10/2017 as follows: -BCR-ABL gene rearrangement--> negative. -JAK2 mutation--> positive, mutation number done 38.6% -EPO level--> 8.3 -C reactive protein--> less than 1. ESR--> 8 On 01/22/2017 he came to [facility] ER for right lower quadrant pain of 4 days duration, he underwent colonoscopy examination about 1 month before that with the 1.6 cm polyp was removed at some postoperative rectal bleeding. CT scan of the abdomen showed free air suggestive of perforation, he underwent x -ray laparotomy with repair of cecal perforation and now he is gradually recovering over the last one week. I reviewed his blood workup done during this of present, white cell count increased from 20,000--> 36,000, platelet count increased from 700,000--> 1 million, no new bleeding complications, no new thrombotic complications, he is on heparin prophylaxis, no leg edema, has some abdominal discomfort but gradually getting better, today he started taking oral pills, no fever, hemodynamically has remained stable, REVIEW OF SYSTEMS: GENERAL: Feels slightly weak and tired but no fever or chills.. SKIN: No skin rash, no bruising. HEAD: No new headache, no dizziness. EYES: No recent change in the vision, no diplopia, EARS: No earache no tinnitus, NOSE: No epistaxis, No nasal discharge or stuffiness, MOUTH: No sores, no dysphagia, no hoarseness of voice, NECK: No lumps, No swelling in thyroid area. No stiffness. PULMONARY: No cough, No shortness of breath, no hemoptysis, no chest pain, No wheezing. CARDIOVASCULAR: No anginal chest pain, no PND, no orthopnea. No palpitation, no leg edema. No syncope. GASTROINTESTINAL: Abdominal pain present, some mild nausea present, no vomiting at this time. No blood in stool or black tarry stools. No abdominal distention. UROLOGIC: No burning urination. No hematuria. MUSCULOSKELETAL: No joint pain, No joint swelling, no muscle weakness. HEMATOLOGIC: No anemia, no bleeding disorder, No bruising. NEUROLOGIC: No seizures, no focal weakness, no speech difficulty, No memory disturbances. No tingling or numbness of the extremities. PSYCHIATRIC: No depression. No anxiety. No psychosis. SLEEP: No sleep disorder. Past medical and surgical history: -hypertension, polymyalgia rheumatica, hyperlipidemia. He had appendectomy in the past. Recently underwent colonoscopy with polyp removed Social history: Nonsmoker, denies any ETOH abuse. He says that his is having minor surgical procedure by Dr. Holder this week on Sunday dot Family history: Not significant. Medications: Please review his chart for detailed list of medications. Allergies: None. On exam: - Alert and oriented x3, well built man, not in any distress. - HEENT: no icterus, no pallor, Throat: Normal. - Neck: No palpable cervical lymphadenopathy. - Chest: clear to auscultation. - Abdomen: soft, nontender, no hepatomegaly, no splenomegaly. - No focal neuro deficit. - Extremities: no finger clubbing, no leg edema. Lab: -WBC 36,000, H&H of 10/32, Platelet count of 1 million (01/29/2017) -BUN/Creat: 8/0.5 Imaging: -CT scan of the abdomen pelvis done on 01/18/2017 showed decrease inflammatory changes as surgery complicated diverticulitis, surgical drain present, focal nodular changes noted in the right lower lobe, small to moderate right pleural effusion noted. Spleen size close to the upper limit of normal. ASSESSMENT AND PLAN: 76-year-old male, a case of essential thrombocythemia diagnosed recently, he had elevated white blood cell count around 20,000 and platelet count around 70,000 recently, JAK2 mutation positive, EPO level normal , BCR-ABL gene rearrangement negative, spleen size close to the upper limit of normal is recent imaging study, admitted Hospital for bowel perforation, had x- ray laparotomy, postoperatively in the last one week white blood cell count increased to around 35,000, platelet count increased on 1 million, no thrombotic complications, no worsening infection noted in the recent CT scan of the abdomen, he is receiving heparin prophylaxis. Reviewed with the patient regarding the diagnosis of essential thrombocythemia, recently he was seen by Dr. Uriostegui and had additional workup as outlined above. I would like to start hydroxyurea 1 g once a day, 1st dose today, will monitor blood count daily while he is in the hospital and then every weekly. Will continue heparin prophylaxis. When he goes home, he should receive Lovenox prophylaxis for about 2 to 3 weeks depending on his recovery. Will follow up. Thanks for the consultation. Dr. Boris Kam Hem/Onc (This note was completed using the dictation program Fluency Direct. As such, there may be misspellings, word substitutions, or other variations that should not change the essence of the clinical content of this encounter note. If there is need for further clarification, please direct questions to the provider listed above.) Social History Smoking Status: Never Smoker Smokeless Tobacco Use: No Alcohol Use: none Drug Use: none Marital Status: Housing Status: lives with significant other Occupation Status: retired Allergies Coded Allergies: No Known Allergies (Unverified , 01/22/17) Current Inpatient Medications Current Inpatient Medications Medications (Trade) Dose Ordered Sig/Kym Route Start Time Stop Time Status Last Admin Dose Admin Acetaminophen (Tylenol Tab) 650 mg Q4H PRN PO 01/22/17 15:45 02/21/17 15:44 01/23/17 23:16 650 MG Ondansetron HCl (Zofran Inj) 4 mg Q6H PRN IV 01/22/17 15:45 02/21/17 15:44 01/26/17 07:52 4 MG Morphine Sulfate (MoRPHine SULFATE INJ) 2 mg Q1H PRN IV 01/22/17 15:45 02/05/17 15:44 01/25/17 17:57 2 MG Oxycodone/ Acetaminophen (Percocet 5-325mg Tab) `1-2 tabs for pain 1 tab ... Q4H PRN PO 01/22/17 15:45 02/05/17 15:44 01/29/17 13:59 2 TAB Piperacillin Sod/ Tazobactam Sod 3.375 gm/Dextrose 115 ml @ 28.75 mls/ hr Q8H IV 01/22/17 20:00 02/01/17 19:59 01/29/17 11:47 28.75 MLS/HR Metronidazole 500 mg/Prmx 100 ml @ 100 mls/hr Q8H IV 01/22/17 20:00 02/01/17 19:59 01/29/17 11:43 100 MLS/HR Piperacillin Sod/ Tazobactam Sod (Consult) 1 ea UD PRN N/A 01/22/17 18:15 02/21/17 18:14 Zolpidem Tartrate (Ambien Tab) 10 mg HS PRN PO 01/22/17 18:30 02/21/17 18:29 Morphine Sulfate (MoRPHine SULFATE INJ) 4 mg Q1H PRN IV 01/22/17 20:00 02/05/17 19:59 01/26/17 23:20 4 MG Heparin Sodium (Porcine) (Heparin Sq 5000 Unit/0.5ml) 5,000 unit Q8 SQ 01/27/17 22:00 02/26/17 21:59 01/29/17 14:33 5,000 UNIT Ioversol (Optiray 320) 100 ml UD PRN IV 01/28/17 10:15 02/01/17 10:14 Atorvastatin Calcium (Lipitor Tab) 40 mg QAM PO 01/29/17 11:00 02/28/17 10:59 01/29/17 10:58 40 MG Propranolol HCl (Inderal LA Cap) 80 mg DAILY PO 01/29/17 11:00 02/28/17 10:59 01/29/17 10:58 80 MG Hydroxyurea (Hydrea Cap) 1,000 mg DAILY PO 01/29/17 17:00 02/28/17 16:59 Physical Exam Date Time Temp Pulse Resp B/P (MAP) Pulse Ox O2 Delivery O2 Flow Rate FiO2 01/29/17 16:16 Room Air 01/29/17 15:39 37.2 78 22 120/70 (87) 95 Room Air 01/29/17 12:00 Room Air 01/29/17 11:28 36.6 98 15 120/71 (87) 95 Room Air 01/29/17 10:12 Room Air 01/29/17 08:45 37.1 106 16 124/65 (84) 94 Room Air 01/29/17 08:00 Room Air 01/29/17 04:04 36.6 92 18 135/70 (91) 93 Room Air 01/29/17 04:00 Room Air 01/29/17 00:14 37.3 84 17 117/65 (82) 96 Room Air 01/28/17 23:59 Room Air 01/28/17 20:00 Room Air 01/28/17 19:22 36.9 88 18 134/73 (93) 87 Laboratory Results Last 24 Hours Test 01/29/17 07:44 White Blood Count 36.21 K/uL Red Blood Count 3.38 M/uL Hemoglobin 10.0 g/dL Hematocrit 32.2 % Mean Corpuscular Volume 95.3 fL Mean Corpuscular Hemoglobin 29.6 pg Mean Corpuscular Hemoglobin Concent 31.1 g/dl RDW Standard Deviation 63.6 fL RDW Coefficient of Variation 18.7 % Platelet Count 1030 K/uL Mean Platelet Volume 9.7 fL Nucleated RBC Absolute Count (auto) 0.65 K/uL Nucleated Red Blood Cells % 1.8 % Platelet Estimate INCREASED
[2017-01-29] MEDS: HYDROXYUREA 500 MG CAP PO SCH (18:35)
[2017-01-29] MEDS: ONDANSETRON INJ 2 MG/ML 2 ML VIAL IV PRN (19:50)
[2017-01-30] VITALS (9 sets, daily range): BP systolic 111–132; BP diastolic 58–75; PULSE 72–78; TEMP 36.5–37; O2SAT 93–98
[2017-01-30] MEDS: OXYCODONE/ACETAMINOPHEN 5-325 TAB PO PRN ×4 (01:51→21:15)
[2017-01-30] MEDS: PIPERACILL/TAZOBAC IV 3.375 GM in DEXTROSE 5% 100ML 100 ML IV SCH ×3 (03:46→19:44)
[2017-01-30] MEDS: METRONIDAZOLE / NSS 500 MG in PREMIXED NSS 100 ML IV SCH ×3 (03:46→19:44)
[2017-01-30] MEDS: HEPARIN SOD 5000 UNIT/0.5 ML CARP SQ SCH ×3 (05:44→21:12)
--- NOTE | 2017-01-30 07:20 | Surgery Progress Note ---
Surgery Progress Note Date of Service Jan 30, 2017. Subjective Post OP Day: 8 + feeling well, + ambulating, + bowel movement, + flatus, + diet (regular), No complaints, No nausea, No vomiting Objective Vital Signs: Date Time Temp Pulse Resp B/P (MAP) Pulse Ox O2 Delivery O2 Flow Rate FiO2 01/30/17 04:00 95 Room Air 01/30/17 03:15 36.7 72 18 113/62 (79) 95 Room Air 01/29/17 23:59 96 Room Air 01/29/17 23:00 36.8 72 16 122/61 (81) 96 Room Air 01/29/17 20:00 95 Room Air 01/29/17 19:10 36.8 75 22 134/73 (93) 95 Room Air 01/29/17 16:16 Room Air 01/29/17 15:39 37.2 78 22 120/70 (87) 95 Room Air 01/29/17 12:00 Room Air 01/29/17 11:28 36.6 98 15 120/71 (87) 95 Room Air 01/29/17 10:12 Room Air 01/29/17 08:45 37.1 106 16 124/65 (84) 94 Room Air 01/29/17 08:00 Room Air Physical Exam: Main drainage (minimal serosanguinous; out at discharge) General Appearance: WD/WN, no apparent distress Head: normocephalic, atraumatic Neck: supple, trachea midline Respiratory/Chest: chest non-tender, lungs clear Cardiovascular: regular rate, rhythm Abdomen: normal bowel sounds, non distended, soft, + tenderness (minimal) Incision(s): clean, dry, intact Extremities: non-tender, no pedal edema Laboratory Results: Results Past 24 Hours Test 01/29/17 07:44 01/30/17 06:24 Range/Units White Blood Count 36.21 4.8-10.8 K/uL Red Blood Count 3.38 4.7-6.1 M/uL Hemoglobin 10.0 14.0-18.0 g/dL Hematocrit 32.2 42-52 % Mean Corpuscular Volume 95.3 80-100 fL Mean Corpuscular Hemoglobin 29.6 25-34 pg Mean Corpuscular Hemoglobin Concent 31.1 32-36 g/dl RDW Standard Deviation 63.6 36.4-46.3 fL RDW Coefficient of Variation 18.7 11.5-14.5 % Platelet Count 1030 130-400 K/uL Mean Platelet Volume 9.7 7.4-10.4 fL Nucleated RBC Absolute Count (auto) 0.65 0-0 K/uL Nucleated Red Blood Cells % 1.8 % Platelet Estimate INCREASED Assessment & Plan s/p ex lap with cecal injury versus sigmoid diverticulitis with repair -appreciate oncology consult -await CBC -OOB and ambulate -con't IV abx -regular diet -lovenox at home for 2-3 weeks post-op
[2017-01-30 07:51] LABS: HEMATOCRIT 28.8 % (42-52); MEAN CELL VOLUME 95.4 fL (80-100); MEAN CORPUSCULAR HEMOGLOBIN 30.1 pg (25-34); MEAN CORPUSCULAR HGB CONC 31.6 g/dl (32-36); PLATELET COUNT 968 K/uL (130-400); RED BLOOD COUNT 3.02 M/uL (4.7-6.1); WHITE BLOOD COUNT 30.08 K/uL (4.8-10.8)
[2017-01-30] MEDS: ATORVASTATIN 40 MG TAB PO SCH (08:21)
[2017-01-30] MEDS: PROPRANOLOL HCL 80 MG LA CAP PO SCH (08:22)
[2017-01-30] MEDS: HYDROXYUREA 500 MG CAP PO SCH (08:22)
[2017-01-30] MEDS ORDERED: HYDROXYUREA 500 MG CAP PO SCH (09:00)
[2017-01-31 03:20] VITALS: BP 136/68; PULSE 77; TEMP 36.9; O2SAT 96
[2017-01-31] MEDS: METRONIDAZOLE / NSS 500 MG in PREMIXED NSS 100 ML IV SCH ×3 (04:41→19:27)
[2017-01-31] MEDS: PIPERACILL/TAZOBAC IV 3.375 GM in DEXTROSE 5% 100ML 100 ML IV SCH ×3 (04:41→19:27)
[2017-01-31] MEDS: OXYCODONE/ACETAMINOPHEN 5-325 TAB PO PRN ×3 (04:45→20:39)
[2017-01-31] MEDS: HEPARIN SOD 5000 UNIT/0.5 ML CARP SQ SCH ×3 (06:18→20:38)
--- NOTE | 2017-01-31 07:20 | Surgery Progress Note ---
Surgery Progress Note Date of Service Jan 31, 2017. Subjective Post OP Day: 9 + feeling well, + bowel movement, + flatus, + pain controlled, + diet (regular) , No complaints, No nausea, No vomiting Objective Vital Signs: Date Time Temp Pulse Resp B/P (MAP) Pulse Ox O2 Delivery O2 Flow Rate FiO2 01/31/17 04:00 Room Air 01/31/17 03:20 36.9 77 18 136/68 (90) 96 Room Air 01/31/17 00:00 Room Air 01/30/17 23:35 36.8 76 18 132/58 (82) 98 Room Air 01/30/17 20:00 96 Room Air 01/30/17 19:30 36.7 75 20 114/64 (81) 96 Room Air 01/30/17 16:00 Room Air 01/30/17 16:00 36.8 77 20 111/65 (80) 95 Room Air 01/30/17 12:00 Room Air 01/30/17 11:13 37.0 78 18 121/65 (83) 95 Room Air 01/30/17 09:46 93 Room Air 01/30/17 07:34 36.5 76 18 132/75 (94) 93 Room Air Physical Exam: Main drainage (minimal) General Appearance: WD/WN, no apparent distress Head: normocephalic, atraumatic Neck: supple, trachea midline Respiratory/Chest: lungs clear Cardiovascular: regular rate, rhythm Abdomen: normal bowel sounds, non distended, soft, + tenderness (mild) Incision(s): clean, dry, intact Extremities: non-tender, no pedal edema Laboratory Results: Results Past 24 Hours Test 01/31/17 06:40 Range/Units Assessment & Plan s/p ex lap with cecal injury versus sigmoid diverticulitis with repair -appreciate oncology consult -WBC and plt trending in correct direction -if continues then likely discharge tomorrow afternoon -drains out tomorrow -OOB and ambulate -con't IV abx -regular diet -lovenox at home for 2-3 weeks post-op
[2017-01-31 07:52] VITALS: BP 128/64; PULSE 80; TEMP 36.8; O2SAT 96
[2017-01-31 07:53] LABS: CREATININE 0.51 mg/dl (0.60-1.40)
[2017-01-31 09:45] LABS: MEAN CORPUSCULAR HGB CONC 31.3 g/dl (32-36); MEAN PLATELET VOLUME 10.1 fL (7.4-10.4); PLATELET COUNT 938 K/uL (130-400)
[2017-01-31] MEDS: ATORVASTATIN 40 MG TAB PO SCH (10:09)
[2017-01-31] MEDS: PROPRANOLOL HCL 80 MG LA CAP PO SCH (10:09)
[2017-01-31] MEDS: HYDROXYUREA 500 MG CAP PO SCH (10:13)
[2017-01-31 10:32] LABS: HEMATOCRIT 29.7 % (42-52); MEAN CORPUSCULAR HEMOGLOBIN 29.4 pg (25-34); RED BLOOD COUNT 3.16 M/uL (4.7-6.1); WHITE BLOOD COUNT 25.42 K/uL (4.8-10.8)
[2017-01-31 10:36] LABS: ANISOCYTOSIS PRESENT; BASO ABS # 0.43 K/uL (0-0.2); BASOPHIL % 1.7 % (0-2); EOSINOPHIL % 8.7 %; LYMPH ABS # 1.55 K/uL (1.2-3.4); LYMPHOCYTE % 6.1 %; META ABS # 0.89 K/uL (0-0); METAMYELOCYTE % 3.5 %; MYELOCYTE % 4.3 %; NEUTROPHILS % 72.2 %; POLYCHROMASIA 1+
[2017-01-31 10:47] LABS: COMPLETE YES
[2017-01-31 12:21] VITALS: BP 128/64; PULSE 81; TEMP 36.5; O2SAT 98
[2017-01-31 15:15] VITALS: BP 118/66; PULSE 71; TEMP 37.2; O2SAT 96
[2017-01-31 20:08] VITALS: BP 120/69; PULSE 71; TEMP 36.9; O2SAT 94
[2017-02-01] VITALS: BP 128/70; PULSE 76; TEMP 36.8; O2SAT 95
[2017-02-01] MEDS: OXYCODONE/ACETAMINOPHEN 5-325 TAB PO PRN ×2 (02:33→12:30)
[2017-02-01 04:00] VITALS: BP 120/70; PULSE 74; TEMP 36.8; O2SAT 96
[2017-02-01] MEDS: METRONIDAZOLE / NSS 500 MG in PREMIXED NSS 100 ML IV SCH ×2 (04:51→12:29)
[2017-02-01] MEDS: PIPERACILL/TAZOBAC IV 3.375 GM in DEXTROSE 5% 100ML 100 ML IV SCH ×2 (04:51→12:29)
[2017-02-01] MEDS: HEPARIN SOD 5000 UNIT/0.5 ML CARP SQ SCH ×2 (06:08→14:27)
[2017-02-01 07:20] LABS: HEMATOCRIT 30.8 % (42-52); MEAN CELL VOLUME 95.7 fL (80-100); MEAN CORPUSCULAR HEMOGLOBIN 29.5 pg (25-34); MEAN CORPUSCULAR HGB CONC 30.8 g/dl (32-36); MEAN PLATELET VOLUME 9.9 fL (7.4-10.4); PLATELET COUNT 901 K/uL (130-400); RED BLOOD COUNT 3.22 M/uL (4.7-6.1); WHITE BLOOD COUNT 23.15 K/uL (4.8-10.8)
[2017-02-01 07:36] LABS: CREATININE 0.55 mg/dl (0.60-1.40)
[2017-02-01 08:00] VITALS: O2SAT 96
[2017-02-01] MEDS: PROPRANOLOL HCL 80 MG LA CAP PO SCH (08:03)
[2017-02-01] MEDS: ATORVASTATIN 40 MG TAB PO SCH (08:03)
[2017-02-01] MEDS: HYDROXYUREA 500 MG CAP PO SCH (08:03)
[2017-02-01 08:11] VITALS: BP 131/88; PULSE 88; TEMP 36.8; O2SAT 96
[2017-02-01 08:13] LABS: ANISOCYTOSIS PRESENT; BASO ABS # 0.79 K/uL (0-0.2); BASOPHIL % 3.4 % (0-2); COMPLETE YES; EOSINOPHIL % 11.1 %; LYMPHOCYTE % 4.3 %; META ABS # 0.79 K/uL (0-0); METAMYELOCYTE % 3.4 %; MYELOCYTE % 3.4 %; NEUTROPHILS % 72.7 %; POLYCHROMASIA 1+
--- NOTE | 2017-02-01 08:58 | Surgery Progress Note ---
Surgery Progress Note Date of Service Feb 01, 2017. Subjective Post OP Day: POD #10 + feeling well, + bowel movement, + flatus, + pain controlled, + diet ( tolerating regular diet), No complaints, No chest pain, No SOB, No nausea, No vomiting Objective Vital Signs: Date Time Temp Pulse Resp B/P (MAP) Pulse Ox O2 Delivery O2 Flow Rate FiO2 02/01/17 08:11 36.8 88 18 131/88 (102) 96 02/01/17 04:00 Room Air 02/01/17 04:00 36.8 74 16 120/70 (87) 96 Room Air 02/01/17 00:00 Room Air 02/01/17 00:00 36.8 76 18 128/70 (89) 95 Room Air 01/31/17 20:08 36.9 71 18 120/69 (86) 94 Room Air 01/31/17 20:00 Room Air 01/31/17 16:00 Room Air 01/31/17 15:15 37.2 71 18 118/66 (83) 96 Room Air 01/31/17 12:21 36.5 81 16 128/64 (85) 98 01/31/17 12:00 Room Air Physical Exam: CORWIN drainage (serous Left CORWIN drain, Serosanguineous, dark dried blood in Right CORWIN drain. Minimal output in both) General Appearance: WD/WN, no apparent distress Head: normocephalic, atraumatic Neck: trachea midline Respiratory/Chest: no respiratory distress, no accessory muscle use Abdomen: non tender, non distended, soft, no organomegaly, no pulsatile mass Incision(s): clean, dry, intact, no erythema, no drainage, findings (delroy intact) Laboratory Results: Results Past 24 Hours Test 02/01/17 06:38 Range/Units White Blood Count 23.15 4.8-10.8 K/uL Red Blood Count 3.22 4.7-6.1 M/uL Hemoglobin 9.5 14.0-18.0 g/dL Hematocrit 30.8 42-52 % Mean Corpuscular Volume 95.7 80-100 fL Mean Corpuscular Hemoglobin 29.5 25-34 pg Mean Corpuscular Hemoglobin Concent 30.8 32-36 g/dl Platelet Count 901 130-400 K/uL Mean Platelet Volume 9.9 7.4-10.4 fL RDW Standard Deviation 67.9 36.4-46.3 fL RDW Coefficient of Variation 19.8 11.5-14.5 % Nucleated RBC Absolute Count (auto) 0.81 0-0 K/uL Neutrophils % (Manual) 72.7 % Lymphocytes % (Manual) 4.3 % Monocytes % (Manual) 1.7 % Eosinophils % (Manual) 11.1 % Basophils % (Manual) 3.4 0-2 % Metamyelocytes % 3.4 % Myelocytes % 3.4 % Nucleated Red Blood Cells % 3.5 % Neutrophils # (Manual) 16.83 1.4-6.5 K/uL Total Absolute Neutrophils 16.83 1.4-6.5 K/uL Lymphocytes # (Manual) 1.00 1.2-3.4 K/uL Total Absolute Lymphocytes 1.00 1.2-3.4 K/uL Monocytes # (Manual) 0.39 0.11-0.59 K/uL Eosinophils # (Manual) 2.57 0-0.5 K/uL Basophils # (Manual) 0.79 0-0.2 K/uL Metamyelocytes # 0.79 0-0 K/uL Myelocytes # 0.79 0-0 K/uL Polychromasia 1+ Anisocytosis PRESENT Creatinine 0.55 0.60-1.40 mg/dl Est Creatinine Clear Calc Drug Dose 130.3 ml/min Estimated GFR () 118.1 Estimated GFR (Non- 101.9 Assessment & Plan POD # 10 s/p ex lap repair of cecal injury - vitals stable, afebrile - decrease in leukocytosis 23.15K today - abdominal pain minimal - + bowel function Essential Thrombocytopenia - Leukocytosis improving - Thrombocytopenia improving 901K today Plan: D/C home today Will place on Oral antibiotics for 1 week, PO Cipro/Flagyl Will need follow-up with Dr. Thompson next Sunday for staple removal Follow-up with Oncology 2-3 weeks of Lovenox Prophylaxis Will send home with Rx for Hydroxyurea 1000 mg daily (Per Dr. Kam) Follow-up with Dr. Uriostegui in 1 week Discharge instructions reviewed Dr. Thompson has seen patient, agrees with above
[2017-02-01] MEDS ORDERED: CIPR-255 PO (09:09)
[2017-02-01] MEDS ORDERED: METR500T PO (09:09)
[2017-02-01] MEDS ORDERED: ENOX40IN SQ ×2 (10:11→10:24)
[2017-02-01] MEDS ORDERED: HYDR500C3 PO (10:11)
[2017-02-01 12:13] VITALS: BP 128/56; PULSE 90; TEMP 36.7; O2SAT 96
[2017-02-01 15:27] VITALS: BP 128/56; PULSE 90; TEMP 36.7; O2SAT 96
[2017-02-01] MEDS ORDERED: PERCOCET HOME PACK PO ONE (21:00)
--- NOTE | 2017-02-02 12:57 | Discharge Summary ---
Discharge Summary Dates Admission Date / Time: Jan 22, 2017 at 15:46 Discharge Date: Feb 01, 2017 Dispostion / Condition Discharge Disposition: Home Condition at Discharge: Good Principal Diagnosis (1) Injury of cecum (2) S/P colonoscopic polypectomy Problem List (1) PMR (polymyalgia rheumatica) (2) Hypertension (3) Hyperlipidemia Consultations / Procedures Consultations: Hematology/oncology Procedures: Exploratory laparotomy with repair of cecal colotomy Pending Studies / Follow-Up None Medication Reconciliation New Medications: Ciprofloxacin Hcl (Cipro) 500 Mg Tab 500 MG PO BID for 7 Days, #14 TAB 0 Refills Enoxaparin (Lovenox) 40 Mg/0.4 Ml Inj 0.4 ML SQ DAILY for 14 Days, #14 SYR 0 Refills Hydroxyurea (Hydrea Cap) 500 Mg Cap 1000 MG PO DAILY, #60 CAP Metronidazole (Flagyl) 500 Mg Tab 500 MG PO TID for 7 Days, #21 TAB Oxycodone/Acetaminophen 5MG/325MG (Percocet 5MG/325MG) Tab 1-2 TABLETS PO Q4H PRN for Pain, #30 TAB Continued Medications: Aspirin (Aspirin) 325 Mg Tab 325 MG PO DAILY Atorvastatin (Lipitor) 40 Mg Tab 40 MG PO QAM, TAB Calcium Carbonate (Calcium) 600 Mg Tab 600 MG PO DAILY Cholecalciferol (Vitamin D) 1,000 Unit Tab 1000 UNITS PO DAILY Cyanocobalamin (Vitamin B-12) 500 Mcg Tab 500 MCG PO DAILY, TAB Diazepam (Valium) 5 Mg Tab 5 MG PO BID PRN for Anxiety, TAB Loratadine (Claritin) 10 Mg Tab 10 MG PO DAILY, TAB Prednisone (Prednisone) 1 Mg Tab 2 MG PO DAILY, TAB Propranolol HCl (Propranolol HCl ER) 80 Mg Capcr 80 MG PO DAILY Discontinued Medications: Hydrocodone/Acetaminophen 5MG/325MG ([place] 5MG/325MG) Tab 1 TABLET PO Q4-6H PRN for Pain, TAB PRN PAIN Admission HPI Per the Admitting provider: This is a 76 year old male who presents to the Emergency Room with complaints of RLQ abdominal pain that began 4 days ago. He rates his pain a 9/10 in severity. His pain worsens with movement. He has a past medical history of a colonoscopy last month that showed a large polyp that he had removed. He had some post-op rectal bleeding. He has had an outpatient work-up showing elevated WBCs.He has been on steroids for a year for PMR but is down to 2mg daily.He denies headache, change in vision, fevers, chest pain, shortness of breath, nausea, vomiting, diarrhea, pain with urination, hematochezia, testicular pain, groin pain, and melena. A CT scan shows a lot of free air and possible sigmoid diverticulitis. He had a biopsy of his ascending colon less than a month ago. Admission Exam Per the Admitting provider: General Appearance: WD/WN, no apparent distress Head: normocephalic, atraumatic Eyes: normal inspection, PERRL, EOMI, sclerae normal ENT: normal ENT inspection Neck: supple, no adenopathy, trachea midline Respiratory/Chest: chest non-tender, lungs clear Cardiovascular: regular rate, rhythm, no gallop, no murmur Abdomen/GI: normal bowel sounds, soft, + tenderness, + guarding, + rebound Genitourinary - Male: normal male genitalia Back: normal inspection, no CVA tenderness Extremities/Musculoskelatal: normal inspection, normal range of motion, non- tender Neurologic/Psych: no motor/sensory deficits, alert, normal mood/affect, oriented x 3 Skin: normal color, warm/dry Hospital Course (1) Injury of cecum Patient was taken back to operating room emergently by Dr. Thompson given pneumoperitoneum for exploratory laparotomy possible bowel resection. Patient tolerated procedure well without any complications. Procedure showed a walled off phlegmon surrounding the cecum with slight injury however no fecal spillage or contamination. Patient did not require colon resection. He was transferred to recovery in stable condition and then to the Telemetry floor for his post operative care. He was started on IV fluids, IV antibiotics (Zosyn and Flagyl) , IV Morphine, IV Zofran, kept NPO except ice chips and sips, NGT to low intermittent suction, CORWIN to bulb suction, [place] to gravity. POD # 1 his pain was controlled and tolerate ice chips. No changes in orders. POD # 2 there was no return of bowel function and no significant order changes. POD # 3 patient began to pass flatus and tolerated sip of clears. NGT was discontinued and clear liquids were started. IVF rate was decreased and IV antibiotics were continued. POD # 4 patient had slight nausea and emesis in the evening secondary to beef broth otherwise tolerated rest of clear liquids. WBC did increase to 28K so a bolus of NS was given in case of dehydration. Antibiotics were continued. POD # 5 wbc continued to rise, was 27.28K, patient clinically looked fine with minimal abdominal pain, no fever or chills. Tolerated clear liquids. Diet was advanced to full liquids and Heparin SQ TID was started. His platelet count was also elevated at 995K. POD # 6 white count still continued to rise to 32K. Still clinically looked fine and +bowel function with minimal pain that was controlled. CT scan of abd/pelvis ordered to rule out post op abscess which was unremarkable. POD # 7 pain controlled, WBC continued to rise to 36K, diet was advanced to low fiber diet. Hematology/ oncology consult placed. Antibiotics were continued. POD # 8 patient was started on hydroxyurea 1 gm daily from hematology/oncology, diet was tolerated , WBC came slightly down to 30.8K. Antibiotics still continued. POD # 9, WBC still trending down to 25.42. POD # 10 WBC 23.15K and platelet count decreased to 901K. Pain was controlled, tolerated regular diet and was ready to go home. He was discharged on on POD # [address] Kam with Hematology he was to go home with Rx for Hydroxyurea 1 gm daily and Prophylactic Lovenox 40 mg SQ daily for 2 weeks. He is to follow-up with Dr. Uriostegui in 1 week for follow-up and blood work. (2) S/P colonoscopic polypectomy Please refer to above Discharge Instructions As given to patient Copies To Primary Care Provider: Yadira Turpin M.D..
== END 2017-02-01 15:50 | disposition home or self-care (01) | DRG 907 ==
LOC: C.EDB 12:32 → C.2T 15:46 → ENRESERV 18:27
PROVIDERS: ADMIT Surgery; ATTEND Surgery
PROC: 0DQH0ZZ Repair Cecum, Open Approach (ICD-10-PCS; principal; 2017-01-22 14:00)
DX: K91.71 Accidental puncture and laceration of a digestive system organ or structure during a digestive system procedure (principal); K63.1 Perforation of intestine (nontraumatic); D69.3 Immune thrombocytopenic purpura; M35.3 Polymyalgia rheumatica; E78.5 Hyperlipidemia, unspecified; I10 Essential (primary) hypertension; Z79.52 Long term (current) use of systemic steroids; Z79.82 Long term (current) use of aspirin; Y83.8 Other surgical procedures as the cause of abnormal reaction of the patient, or of later complication, without mention of misadventure at the time of the procedure

== ENCOUNTER → 2017-07-02 | Outpatient (CLI) | payer OTHER ==
[~2017-07-02] MED LIST changes: -HYDR-5688 PO; -METR500T PO
[2017-07-02 13:40] LABS: ALBUMIN 3.9 gm/dl (3.4-5.0); BLOOD UREA NITROGEN 13 mg/dl (7-18); CALCIUM 9.1 mg/dl (8.5-10.1); CARBON DIOXIDE 29 mmol/L (21-32); CHOLESTEROL 142 mg/dl (0-200); CREATININE 1.04 mg/dl (0.60-1.40); GLUCOSE 84 mg/dl (70-99); POTASSIUM 4.2 mmol/L (3.5-5.1); SODIUM 141 mmol/L (136-145)
[2017-07-02 13:43] LABS: LDL CHOLESTEROL CALCULATED 69 mg/dl; PHOSPHORUS 3.2 mg/dl (2.5-4.9)
== END | disposition home or self-care (01) ==
LOC: C.LABMFLN 09:13
PROVIDERS: ATTEND Internal Medicine Rheumatology
DX: E78.5 Hyperlipidemia, unspecified (principal); M35.3 Polymyalgia rheumatica; Z51.81 Encounter for therapeutic drug level monitoring; Z79.52 Long term (current) use of systemic steroids; D47.3 Essential (hemorrhagic) thrombocythemia

== ENCOUNTER → 2017-12-13 | Outpatient (CLI) | payer OTHER ==
[~2017-12-13] MED LIST changes: +ASPECOTC PO; -ASPI325T45 PO; -HYDR500C3 PO; -OXYC-57 PO
[2017-12-13 12:33] LABS: BASO % 2.4 %; EOS % 1.8 %; EOS ABS # 0.15 K/uL (0-0.5); HEMATOCRIT 47.7 % (42-52); HEMOGLOBIN 15.6 g/dL (14.0-18.0); IG# 0.23 K/uL (0.00-0.02); LYMPH ABS # 1.34 K/uL (1.2-3.4); MEAN CELL VOLUME 103.5 fL (80-100); MEAN CORPUSCULAR HEMOGLOBIN 33.8 pg (25-34); MEAN CORPUSCULAR HGB CONC 32.7 g/dl (32-36); MEAN PLATELET VOLUME 10.6 fL (7.4-10.4); MONO % 12.6 %; MONO ABS # 1.06 K/uL (0.11-0.59); NEUT % 64.5 %; PLATELET COUNT 190 K/uL (130-400); RED CELL DISTRIBUTION WIDTH CV 20.7 % (11.5-14.5); RED CELL DISTRIBUTION WIDTH SD 78.7 fL (36.4-46.3); WHITE BLOOD COUNT 8.38 K/uL (4.8-10.8)
== END | disposition home or self-care (01) ==
LOC: C.LABMFLN 10:13
PROVIDERS: ATTEND Internal Medicine Rheumatology
DX: M19.90 Unspecified osteoarthritis, unspecified site (principal); M35.3 Polymyalgia rheumatica; Z79.52 Long term (current) use of systemic steroids; M25.512 Pain in left shoulder

== ENCOUNTER → 2018-01-01 | Outpatient (CLI) | payer OTHER ==
[~2018-01-01] MED LIST changes: +HYDR-3419 PO; +HYDR500C3 PO; +PROP20TA67 PO; +TMPOPS15 OPB
== END | disposition home or self-care (01) ==
LOC: C.LABMFLN 08:35
PROVIDERS: ATTEND Family Medicine
DX: D75.89 Other specified diseases of blood and blood-forming organs (principal)

== ENCOUNTER 2020-11-23 10:38 | Inpatient (IN) ==
[2020-11-23] MEDS ORDERED: SODIUM CHLORIDE 0.9% 1000ML 1,000 ML IV SCH (11:45)
[2020-11-23] MEDS ORDERED: SODIUM CHLORIDE 0.9% 1000ML 500 ML IV ONE (11:53)
[2020-11-23] MEDS ORDERED: ONDANSETRON INJ 2 MG/ML 2 ML VIAL IV STA (11:53)
[2020-11-23] MEDS ORDERED: ACETAMINOPHEN 1,000 MG/100 ML VIAL IV STA (11:53)
[2020-11-23] MEDS ORDERED: SODIUM CHLORIDE 0.9% 1000ML 1,000 ML IV STA (11:53)
--- NOTE | 2020-11-23 11:53 | Emergency Department Note ---
Impression & Plan Headache, Leukocytosis, Thrombocytopenia, Anemia ED Provider Note INFORMANT: Patient and ED PROVIDER(S): Jorge Alberto Keys MD CHIEF COMPLAINT: Headache PLAN: Disposition: Admitted Condition: Good Outpatient prescription management: none Referral: None MEDICAL DECISION MAKING: Patient presented with headache. He was afebrile. He did not have any meningeal findings or any focal neurologic findings. The patient's history is concerning for pancytopenia. Intracranial bleeding was of significant concern. The patient was treated with saline, Zofran, and IV Tylenol. He did feel much better with this. CT imaging was performed and did not reveal any evidence of acute bleeding or other pathology. On reassessment the patient was doing better. Nausea vomiting resolved. His blood work reveals a significant leukocytosis consistent with prior. The patient is anemic as well as profoundly thrombocytopenic. The case was discussed with his oncologist, Dr. Singer. He asked for the patient to receive 2 units of packed red blood cells, 1 pack of platelets and admission for hydration and symptom control. I did consent the patient in order the blood and platelets. Platelets were administered first. [facility] Patient was evaluated by the team in the ER and admitted. Patient and were informed. They are pleased with the treatment. Triage Nursing notes reviewed and agree them. Vital Signs: reviewed and remarkable for no significant abnormalities Differential diagnosis: Migraine headache, meningitis, sinusitis, CO exposure, ICH, SAH, infection, tumor, headache, sinus thrombosis, arterial dissection, as well as other pathologies. Diagnostics interpreted by me: ECG: Rate:79 Rhythm:Normal sinus [place]:Normal QRS:RBBB, LARB ST segements:No elevation or depression Other:No PACs or PVCs, LVH Cardiac Monitoring: none Imaging studies: Head CT: A noncontrast CT scan of the head was performed and was negative for tumor, fracture, intracranial hemorrhage, or other acute pathology. HPI: The patient is a 80 year old male who presents to the Emergency Room with complaints of headache. This started 3 days ago and is persisting. The patient also notes the following associated symptoms, nausea and dry heaves. The patient has used oxycodone for relieving factors. Current pain is rated as 7/10. Being treated for leukemia. Pt denies LOC, fevers, chills, diaphoresis, visual changes, neck pain, chest pain, breathing difficulties, abdominal pain, back pain, melena, hematochezia, urinary symptoms, numbness, weakness, lymphadenopathy, rash, or other complaints. ROS: See above HPI for pertinent positives & negatives. A total of 10 systems reviewed and were otherwise negative. PAST MEDICAL HISTORY:See Below , leukemia, thrombocytopenia PAST SURGICAL HISTORY:See Below, FAMILY HISTORY:See Below SOCIAL HISTORY:See Below, HOME MEDICATIONS:See Below ALLERGIES:See Below VITALS:See Below PHYSICAL EXAMINATION: GENERAL: Awake, alert, uncomfortable-appearing, in no distress HENT: Normocephalic, atraumatic. Oropharynx unremarkable. EYES: Pale conjunctiva. Sclera non-icteric. NECK: Inspection normal. Non-tender. Supple. No nuchal rigidity. FROM. No masses. RESPIRATORY: Clear to auscultation. No wheezes. No rales. Normal respiratory effort. CARDIAC: Normal rate. Normal rhythm. No murmurs. No rubs. Extremities warm and well perfused. Pulses equal. No JVD. GI: Soft, non-distended. No tenderness to palpation. No rebound or guarding. No masses. RECTAL: Deferred. MUSCULOSKELETAL: Atraumatic. Chest examination reveals no tenderness. The back is symmetrical on inspection without obvious abnormality. There is no CVA tenderness to palpation. No joint edema. LOWER EXTREMITIES: Calves are equal size bilaterally and non-tender. No edema. No discoloration. NEURO: Normal sensorium. No sensory or motor deficits noted. SKIN: Scattered petechial rash noted on the extremities. No other rash or jaundice noted. CRITICAL CARE: I have personally spent greater than 30 minutes of critical care time in the direct management of this patient. This includes bedside care, interpretation of diagnostic studies, and testing, discussion with consultants, patient, and family members, and other required patient management activities. This 30 minutes is in excess of all separately billable procedures. Jorge Alberto Keys MD Past Med/Surg History Medical History (Updated 11/23/20 @ 15:42 by Jorge Alberto Keys MD) Adenomatous colon polyp Yeung's esophagus Bladder wall thickening 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 H/O: upper GI bleed Hyperlipidemia Hypertension Leukocytosis halfway current use of systemic steroids Myelofibrosis PMR (polymyalgia rheumatica) Polycythemia Steroid-induced osteopenia Vitamin D deficiency Surgical History History of cataract surgery History of colonoscopy History of exploratory laparotomy History of incisional hernia repair History of inguinal hernia repair Hx of appendectomy Family History Mother Diabetes Colon cancer Father Coronary heart disease Myocardial infarction Denies family history of Ovarian cancer Prostate cancer Breast cancer Social History Smoking Status: Never smoker Age Started Using Tobacco: 21; Age Quit Using Tobacco: 31; Second Hand Exposure: Yes; Hx Alcohol Use: Yes Alcohol type: wine Hx Substance Use: No Preferred Language: Malian Communication Ability: Effective Visual Impairment: Limited Hearing Ability: Normal 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 Required: No marital status: Current Living Situation: Spouse current occupational status: retired Feels Safe at Home: Yes Childhood Exposure to Second-Hand Smoke: Yes caffeine: Yes Dental Care, Regularly: Yes Physical Activity Frequency: Daily Seatbelt Use: sometimes Sunscreen Use: Yes Do you think of yourself as: straight/heterosexual Allergies Allergies Allergy/AdvReac Type Severity Reaction Status Date / Time No Known Allergies Allergy Verified 11/23/20 12:16 Home Meds Home Medications Medication Instructions Recorded Confirmed timolol maleate 0.5 % eye drops 1 drops OP DAILY ml 10/22/18 11/23/20 cyanocobalamin (vitamin B-12) 1,000 mcg PO DAILY tab 10/25/18 11/23/20 1,000 mcg tablet,extended release ketoconazole 2 % topical cream 1 appln TOP DAILY 10/25/18 11/23/20 hydrocortisone 1 % topical cream 1 applic TOPICAL DAILY g 05/20/20 11/23/20 finasteride 5 mg tablet 5 mg PO DAILY 06/22/20 11/23/20 tamsulosin 0.4 mg capsule 0.4 mg PO DAILY 06/22/20 11/23/20 oxycodone 10 mg PO Q4 PRN 11/23/20 11/23/20 Previous Rx's Medication Instructions Recorded pantoprazole 40 mg tablet,delayed 40 mg PO DAILY #90 tab 01/17/20 release ruxolitinib 5 mg tablet 5 mg PO BID #180 tab 10/20/20 prednisone 20 mg tablet 20 mg PO DAILY #30 tab 11/19/20 Results & Data (ED) Vital Signs Vital Signs - 24 hr 11/23/20 10:39 11/23/20 11:24 11/23/20 11:38 Temperature 37 C Temperature Source Temporal Artery Scan Pulse Rate 91 H 79 Pulse Rate [Finger] 79 Pulse Rhythm Regular Pulse Rhythm [Finger] Regular Pulse Strength [Finger] Normal Respiratory Rate 18 14 12 Respiratory Effort / Characteristics Non-Labored Respiratory Depth Normal Respiratory Pattern Regular Blood Pressure 131/71 Blood Pressure [Right Arm] 133/60 Blood Pressure Mean 91 Blood Pressure Mean [Right Arm] 84 Blood Pressure Position Sitting Pulse Oximetry 96 95 95 Oxygen Delivery Method Room Air Room Air Room Air Sepsis Recent Fever Within 48 Hours No Sepsis New/Unexplained Change in Mental Status No Sepsis Action Taken by Nursing No Action Required 11/23/20 13:16 11/23/20 13:41 11/23/20 14:00 Temperature 36.6 C 36.7 C Temperature Source Oral Oral Pulse Rate 80 73 Pulse Rate [Finger] 77 Pulse Rhythm Pulse Rhythm [Finger] Regular Pulse Strength [Finger] Normal Respiratory Rate 12 18 16 Respiratory Effort / Characteristics Non-Labored Respiratory Depth Normal Respiratory Pattern Blood Pressure 143/57 H 136/63 Blood Pressure [Right Arm] 133/60 Blood Pressure Mean 85 87 Blood Pressure Mean [Right Arm] 84 Blood Pressure Position Sitting Pulse Oximetry 99 98 98 Oxygen Delivery Method Room Air Sepsis Recent Fever Within 48 Hours Sepsis New/Unexplained Change in Mental Status Sepsis Action Taken by Nursing 11/23/20 14:15 11/23/20 14:45 11/23/20 15:27 Temperature 37.1 C 36.9 C Temperature Source Oral Oral Pulse Rate 71 75 77 Pulse Rate [Finger] Pulse Rhythm Pulse Rhythm [Finger] Pulse Strength [Finger] Respiratory Rate 14 14 19 Respiratory Effort / Characteristics Respiratory Depth Respiratory Pattern Blood Pressure 136/63 125/55 L 130/85 Blood Pressure [Right Arm] Blood Pressure Mean 87 78 Blood Pressure Mean [Right Arm] Blood Pressure Position Pulse Oximetry 95 98 96 Oxygen Delivery Method Room Air Sepsis Recent Fever Within 48 Hours Sepsis New/Unexplained Change in Mental Status Sepsis Action Taken by Nursing Laboratory Data Result diagrams: 11/23/20 11:07 11/23/20 11:07 Lab Results 11/23/20 11/23/2021 Range/Units 11:07 11:07 11:43 WBC 26.49 H (4.8-10.8) K/uL RBC 2.66 L (4.7-6.1) M/uL Hgb 7.7 L (14.0-18.0) g/dL Hct 24.1 L (42-52) % MCV 90.6 (80-100) fL MCH 28.9 (25-34) pg MCHC 32.0 (32-36) g/dL RDW Std Deviation 62.6 H (36.4-46.3) fL RDW Coeff of Umm 19.3 H (11.5-14.5) % Plt Count 6 L* (130-400) K/uL Absolute Nucleated RBC 2.86 H (0-0) K/uL Nucleated RBC % (auto) 10.8 % Neutrophils % (Manual) 36.3 % Lymphocytes % (Manual) 2.7 % Monocytes % (Manual) 5.3 % Eosinophils % (Manual) 8.8 % Metamyelocytes % (Man) 8.8 % Myelocytes % (Man) 15.9 % Promyelocytes % (Man) 1.8 % Blast Cells % (Manual) 20.4 % Neutrophils # (Manual) 9.62 H (1.4-6.5) K/uL Total Absolute Neuts 9.62 H (1.4-6.5) K/uL Lymphocytes # (Manual) 0.72 L (1.2-3.4) K/uL Total Abs Lymphocytes 0.72 L (1.2-3.4) K/uL Monocytes # (Manual) 1.40 H (0.11-0.59) K/uL Eosinophils # (Manual) 2.33 H (0-0.5) K/uL Metamyelocytes # (Man) 2.33 H (0-0) K/uL Myelocytes # (Manual) 4.21 H (0-0) K/uL Promyelocytes # (Man) 0.48 H (0-0) K/uL Blast Cells # (Man) 5.40 H (0-0) K/uL Platelet Estimate SIGNIFIC DECREASED (Normal) Anisocytosis Present Tear Drop Cells 1+ Sodium 133 L (136-145) mmol/L Potassium 3.8 (3.5-5.1) mmol/L Chloride 101 (98-107) mmol/L Carbon Dioxide 27 (21-32) mmol/L Anion Gap 5.0 (3-11) BUN 12 (7-18) mg/dl Creatinine 0.66 (0.6-1.4) mg/dl Est Cr Clr Drug Dosing 81.8 ml/min Est GFR ( Amer) 106.6 ml/min Est GFR (Non-Af Amer) 92.0 ml/min BUN/Creatinine Ratio 17.7 (10-20) Glucose 108 H (70-99) mg/dl Calcium 8.6 (8.5-10.1) mg/dl Magnesium 2.3 (1.8-2.4) mg/dl Total Bilirubin 1.0 (0.2-1) mg/dl AST 18 (15-37) U/L ALT 11 L (12-78) U/L Alkaline Phosphatase 146 H (45-117) U/L Troponin I < 0.015 (0-0.045) ng/ml Total Protein 6.7 (6.4-8.2) gm/dl Albumin 3.3 L (3.4-5.0) gm/dl Globulin 3.4 (2.5-4.0) gm/dl Albumin/Globulin Ratio 1.0 (0.9-2) TSH 1.240 (0.300-4.500) uIu/ml Urine Color Urine Appearance (Clear) Urine pH (4.5-7.5) Ur Specific [place] (1.000-1.030) Urine Protein (Negative) Urine Glucose (UA) (Negative) Urine Ketones (Negative) Urine Blood (Negative) Urine Nitrite (Negative) Urine Bilirubin (Negative) Urine Urobilinogen (Negative) Ur Leukocyte Esterase (Negative) Urine WBC (Auto) (0-5) /hpf Urine RBC (Auto) (0-4) /hpf U Hyaline Cast (Auto) (0-5) /lpf U Epithel Cells (Auto) (0-5) /lpf Urine Bacteria (Auto) (Negative) COVID-19 Eval Order SARS-CoV-2 (PCR) (Negative) Blood Type B Negative Antibody Screen NEGATIVE Crossmatch See Detail 11/23/20 11/23/20 11/23/20 Range/Units 13:23 13:23 14:35 WBC (4.8-10.8) K/uL RBC (4.7-6.1) M/uL Hgb (14.0-18.0) g/dL Hct (42-52) % MCV (80-100) fL MCH (25-34) pg MCHC (32-36) g/dL RDW Std Deviation (36.4-46.3) fL RDW Coeff of Umm (11.5-14.5) % Plt Count (130-400) K/uL Absolute Nucleated RBC (0-0) K/uL Nucleated RBC % (auto) % Neutrophils % (Manual) % Lymphocytes % (Manual) % Monocytes % (Manual) % Eosinophils % (Manual) % Metamyelocytes % (Man) % Myelocytes % (Man) % Promyelocytes % (Man) % Blast Cells % (Manual) % Neutrophils # (Manual) (1.4-6.5) K/uL Total Absolute Neuts (1.4-6.5) K/uL Lymphocytes # (Manual) (1.2-3.4) K/uL Total Abs Lymphocytes (1.2-3.4) K/uL Monocytes # (Manual) (0.11-0.59) K/uL Eosinophils # (Manual) (0-0.5) K/uL Metamyelocytes # (Man) (0-0) K/uL Myelocytes # (Manual) (0-0) K/uL Promyelocytes # (Man) (0-0) K/uL Blast Cells # (Man) (0-0) K/uL Platelet Estimate (Normal) Anisocytosis Tear Drop Cells Sodium (136-145) mmol/L Potassium (3.5-5.1) mmol/L Chloride (98-107) mmol/L Carbon Dioxide (21-32) mmol/L Anion Gap (3-11) BUN (7-18) mg/dl Creatinine (0.6-1.4) mg/dl Est Cr Clr Drug Dosing ml/min Est GFR ( Amer) ml/min Est GFR (Non-Af Amer) ml/min BUN/Creatinine Ratio (10-20) Glucose (70-99) mg/dl Calcium (8.5-10.1) mg/dl Magnesium (1.8-2.4) mg/dl Total Bilirubin (0.2-1) mg/dl AST (15-37) U/L ALT (12-78) U/L Alkaline Phosphatase (45-117) U/L Troponin I (0-0.045) ng/ml Total Protein (6.4-8.2) gm/dl Albumin (3.4-5.0) gm/dl Globulin (2.5-4.0) gm/dl Albumin/Globulin Ratio (0.9-2) TSH (0.300-4.500) uIu/ml Urine Color Yellow Urine Appearance Clear (Clear) Urine pH 6.5 (4.5-7.5) Ur Specific [place] 1.012 (1.000-1.030) Urine Protein 1+ H (Negative) Urine Glucose (UA) Negative (Negative) Urine Ketones Negative (Negative) Urine Blood 1+ H (Negative) Urine Nitrite Negative (Negative) Urine Bilirubin Negative (Negative) Urine Urobilinogen Negative (Negative) Ur Leukocyte Esterase Trace H (Negative) Urine WBC (Auto) 10-30 H (0-5) /hpf Urine RBC (Auto) 5-10 H (0-4) /hpf U Hyaline Cast (Auto) 0 (0-5) /lpf U Epithel Cells (Auto) 10-20 H (0-5) /lpf Urine Bacteria (Auto) Negative (Negative) COVID-19 Eval Order Covid19 at [facility] SARS-CoV-2 (PCR) NEGATIVE (Negative) Blood Type Antibody Screen Crossmatch Administered Medications Sodium Chloride (Nss 1000ml) 1,000 mls @ 125 mls/hr IV .Q8H STA Stop: 11/23/20 19:52 Last Admin: 11/23/20 13:21 Dose: 125 mls/hr Documented by: [id number] Discontinued Medications Sodium Chloride (Nss 1000ml) 500 mls @ 999 mls/hr IV .Q31M ONE Stop: 11/23/20 12:23 Last Infusion: 11/23/20 13:05 Dose: 0 mls/hr Documented by: [id number] Admin: 11/23/20 12:34 Dose: 999 mls/hr Documented by: [id number] Acetaminophen (Ofirmev) 1,000 mg in 100 mls @ 400 mls/hr IV NOW STA Stop: 11/23/20 12:07 Last Infusion: 11/23/20 12:46 Dose: 0 mls/hr Documented by: [id number] Admin: 11/23/20 12:31 Dose: 400 mls/hr Documented by: [id number] Ondansetron HCl (Ondansetron Inj 2 Mg/Ml 2 Ml Vial) 4 mg IV NOW STA Stop: 11/23/20 11:54 Last Admin: 11/23/20 12:00 Dose: 4 mg Documented by: [id number] Imaging Data Radiologist's Impression: Chest X-Ray 11/23/20 11:35 XR chest 1V portable HISTORY: 80 years-old Male weakness acute weakness COMPARISON: Shoulder radiographs 09/21/2010 TECHNIQUE: Portable AP view the chest FINDINGS: Cardiac mediastinal and hilar silhouettes are within normal limits. There is no pneumothorax, pleural effusion, airspace consolidation or overt pulmonary edema. Degenerative changes of the shoulders and spine. IMPRESSION: No acute process. ACT 112: Negative or not required by law. The above report was generated using voice recognition software. It may contain grammatical, syntax or spelling errors. Electronically signed by: Yinka Anglin M.D. 11/23/2020 11:[address] 11/23/20 11:35 CT OF THE HEAD WITHOUT CONTRAST CLINICAL HISTORY: Headache. COMPARISON STUDY: No previous studies for comparison. CT DOSE: 614.27 mGy.cm TECHNIQUE: Helical axial images of the head were obtained without IV contrast. Automated exposure control was utilized for the study. A dose lowering technique was utilized adhering to the principles of ALARA. FINDINGS: No acute intracranial hemorrhage, midline shift or mass effect is present. Ventricular system is unremarkable. Basal cisterns are patent. There are no extra-axial collections. White matter hypodensities favor small vessel disease. There are no findings to suggest acute dural sinus thrombosis or acute territorial infarct. There are no significant calvarial abnormalities. Suspected mucous retention cyst within the left maxillary sinus is noted. Small left mastoid effusion is present. There is mild sinus mucosal thickening. IMPRESSION: No acute intracranial findings. ACT 112: Negative or not required by law. Electronically signed by: Coleman Brian M.D. 11/23/2020 12:19 PM Discharge Plan Visit Data Chief Complaint: Headache Stated Complaint: SEVERE HEADACHE,VOMITING ED Provider: Jorge Alberto Keys Discharge Problem: Headache, Leukocytosis, Thrombocytopenia, Anemia Discharge Instructions Interventions: ED Discharge Assessment Last Done: 11/23/20 15:27 Forms Stand Alone Forms: My [facility] Prescriptions Prescriptions: No Action pantoprazole 40 mg tablet,delayed release (DR/EC) 40 mg PO DAILY Qty: 90 RF: 3 prednisone 20 mg tablet 20 mg PO DAILY Qty: 30 RF: 0 hydrocortisone 1 % cream 1 applic topical DAILY RF: 0 Jakafi 5 mg tablet 5 mg PO BID Qty: 180 RF: 3 timolol maleate 0.5 % drops 1 drops OP DAILY RF: 0 ketoconazole 2 % cream 1 appln TOP DAILY RF: 0 cyanocobalamin (vitamin B-12) 1,000 mcg tablet extended release 1,000 mcg PO DAILY RF: 0 finasteride [Proscar] 5 mg tablet 5 mg PO DAILY RF: 0 tamsulosin [Flomax] 0.4 mg capsule 0.4 mg PO DAILY RF: 0 oxycodone 10 mg tablet 10 mg PO Q4 PRN (Reason: Pain) RF: 0 Discharge Problem: Headache Qualifiers: Headache type: unspecified Headache chronicity pattern: episodic headache Intractability: not intractable Qualified Code(s): R51.9 - Headache, unspecified
[2020-11-23 11:59] LABS: Hematocrit (blood only) 24.1 % (42-52); Hemoglobin 7.7 g/dL (14.0-18.0); Mean Corpuscular Hemoglobin 28.9 pg (25-34); Mean Corpuscular Volume 90.6 fL (80-100); Nucleated RBC # (auto) 2.86 K/uL (0-0); Nucleated RBC % (auto) 10.8 %; Platelet Count 6 K/uL (130-400); RDW Coefficient of Variation 19.3 % (11.5-14.5); RDW Standard Deviation 62.6 fL (36.4-46.3); Red Blood Count 2.66 M/uL (4.7-6.1); White Blood Count 26.49 K/uL (4.8-10.8)
[2020-11-23 12:00] LABS: ALC (manual) 0.72 K/uL (1.2-3.4); ANC (manual) 9.62 K/uL (1.4-6.5); Anisocytosis Present; Blast Cells % (manual) 20.4 %; Eosinophils # (manual) 2.33 K/uL (0-0.5); Eosinophils % (manual) 8.8 %; Lymphocytes # (manual) 0.72 K/uL (1.2-3.4); Lymphocytes % (manual) 2.7 %; Metamyelocytes # (manual) 2.33 K/uL (0-0); Metamyelocytes % (manual) 8.8 %; Monocytes % (manual) 5.3 %; Myelocytes # (manual) 4.21 K/uL (0-0); Myelocytes % (manual) 15.9 %; Neutrophils # (manual) 9.62 K/uL (1.4-6.5); Neutrophils % (manual) 36.3 %; Platelet Estimate SIGNIFIC DECREASED (Normal); Promyelocytes # (manual) 0.48 K/uL (0-0); Promyelocytes % (manual) 1.8 %; Tear Drop Cells 1+
[2020-11-23 12:03] LABS: Alanine Aminotransferase 11 U/L (12-78); Albumin Level 3.3 gm/dl (3.4-5.0); Aspartate Aminotransferase 18 U/L (15-37); BUN Creatinine Ratio 17.7 (10-20); Blood Urea Nitrogen 12 mg/dl (7-18); Calcium 8.6 mg/dl (8.5-10.1); Carbon Dioxide 27 mmol/L (21-32); Chloride 101 mmol/L (98-107); Creatinine Clr Calc Pharmacy 81.8 ml/min; Est GFR (African American) 106.6 ml/min; Glucose 108 mg/dl (70-99); Magnesium 2.3 mg/dl (1.8-2.4); Potassium 3.8 mmol/L (3.5-5.1); Sodium 133 mmol/L (136-145)
[2020-11-23 12:14] LABS: Alkaline Phosphatase 146 U/L (45-117); Globulin 3.4 gm/dl (2.5-4.0); Total Protein 6.7 gm/dl (6.4-8.2); Troponin I < 0.015 ng/ml (0-0.045)
--- NOTE | 2020-11-23 12:21 | CT Scan Report ---
CT OF THE HEAD WITHOUT CONTRAST CLINICAL HISTORY: Headache. COMPARISON STUDY: No previous studies for comparison. CT DOSE: 614.27 mGy.cm TECHNIQUE: Helical axial images of the head were obtained without IV contrast. Automated exposure con trol was utilized for the study. A dose lowering technique was utilized adhering to the principles o f ALARA. FINDINGS: No acute intracranial hemorrhage, midline shift or mass effect is present. Ventricular syst em is unremarkable. Basal cisterns are patent. There are no extra-axial collections. White matter hyp odensities favor small vessel disease. There are no findings to suggest acute dural sinus thrombosis or acute territorial infarct. There are no significant calvarial abnormalities. Suspected mucous rete ntion cyst within the left maxillary sinus is noted. Small left mastoid effusion is present. There is mild sinus mucosal thickening. IMPRESSION: No acute intracranial findings. ACT 112: Negative or not required by law. Electronically signed by: Coleman Brian M.D. 11/23/2020 12:19 PM
[2020-11-23] MEDS ORDERED: SODIUM CHLORIDE 0.9% 250 ML IV PRN (12:35)
--- NOTE | 2020-11-23 14:07 | History & Physical Report ---
Date of Service November 23, 2020 Assessment & Plan (1) Thrombocytopenia: ? cause likely related to his Ruxolitinib - His dose was decreased to 5mg BID in regards to his continuing drop - Will hold Ruxolitinib - Transfuse 1 unit platelet- goal >15 for now- would like to see >30 - SCD for VTE prophylaxis (2) Anemia: HGB 7.7 as above - Transfuse 2 units of PRBC that already ordered in EMD - Goal >8 - Follow symptoms and blood counts - Patient denies any acute loss - Fatigued, dyspneic (3) Myelofibrosis: As above- current therapy ruxolitinib - on hold (4) Headache: Multifactorial with decrease intake and anemia - continue with normal saline infusion while blood is running - change to LR following blood if continues needing IVF support - Tylenol q6 hours prn - If symptoms worsen repeat non-con head CT as thrombocytopenia with plt count <10 (5) Hyperlipidemia: Patient has stopped his statin at home - continue to follow with PCP - may refuse while in house (6) Hypertension: Controlled - follow with volume replacement and prbc (7) Leukocytosis: Chronic- on steroids - no evidence of infective process- CXR clear, no urinary symtpoms, no fevers/chills (8) BPH with obstruction/lower urinary tract symptoms: Continue outpatient medciations- follow with BP and orthostais (9) PMR (polymyalgia rheumatica): Continues prednisone 20 mg daily - follow closely- if acutely worsen stress dose History of Present Illness Chief Complaint: anemia Primary Care Provider: aYdira Turpin MD 80 YOM with past medical history of: HLD, PMR, OA, BPH, thrombocytosis originally treated with Hydrea, and PCV, primary myelofibrosis via bone biopsy in 11/30 and on Ruxolitinib. Patient is followed by [facility], Dr. Huerta. Patient has received blood transfusions within the past week for anemia and thrombocytopenia. He comes in today for complaints of nausea and vomiting with bifrontal headache. He feels as he has been progressively more fatigued and tired lately and his intake of food, supplements, and drinking has decreased over the past 2 weeks. The patient was evaluated in the EMD and had a head CT performed to rule out intracranial process. His lab work showed a declination in his platelet count to 6 and HGB 7.7. Patient was typed and crossmatched for PRBC and Platelets. Patient will be admitted to continue to follow his blood counts and transfuse to HGB goal >8 and PLT count to 15-20K. Patient feels his symptoms are improved with headache and nausea, continue supportive care. Patient received his COVID vaccines Allergies Allergy/AdvReac Type Severity Reaction Status Date / Time No Known Allergies Allergy Verified 11/23/20 12:16 Home Medications Medication Instructions Recorded Confirmed Type timolol maleate 0.5 % eye drops 1 drops OP DAILY ml 10/22/18 11/23/20 History cyanocobalamin (vitamin B-12) 1,000 mcg PO DAILY tab 10/25/18 11/23/20 History 1,000 mcg tablet,extended release ketoconazole 2 % topical cream 1 appln TOP DAILY 10/25/18 11/23/20 History pantoprazole 40 mg tablet,delayed 40 mg PO DAILY #90 tab 01/17/20 11/23/20 Rx release hydrocortisone 1 % topical cream 1 applic TOPICAL DAILY g 05/20/20 11/23/20 History finasteride 5 mg tablet (Proscar) 5 mg PO DAILY 06/22/20 11/23/20 History tamsulosin 0.4 mg capsule (Flomax) 0.4 mg PO DAILY 06/22/20 11/23/20 History ruxolitinib 5 mg tablet (Jakafi) 5 mg PO BID #180 tab 10/20/20 11/23/20 Rx prednisone 20 mg tablet 20 mg PO DAILY #30 tab 11/19/20 11/23/20 Rx oxycodone 10 mg tablet 10 mg PO Q4 PRN 11/23/20 11/23/20 History Past Med/Surg History Medical History (Updated 11/23/20 @ 15:42 by Jorge Alberto Keys MD) Adenomatous colon polyp Yeung's esophagus Bladder wall thickening 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 H/O: upper GI bleed Hyperlipidemia Hypertension 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 Myelofibrosis PMR (polymyalgia rheumatica) Polycythemia Steroid-induced osteopenia Vitamin D deficiency Surgical History History of cataract surgery History of colonoscopy History of exploratory laparotomy History of incisional hernia repair History of inguinal hernia repair Hx of appendectomy Family History Mother Diabetes Colon cancer Father Coronary heart disease Myocardial infarction Denies family history of Ovarian cancer Prostate cancer Breast cancer Social History Smoking Status: Never smoker Age Started Using Tobacco: 21; Age Quit Using Tobacco: 31; Second Hand Exposure: Yes; Hx Alcohol Use: No Hx Substance Use: No Preferred Language: Arabic Communication Ability: Effective Visual Impairment: Limited Hearing Ability: Normal 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 Required: No marital status: Current Living Situation: Spouse current occupational status: retired Feels Safe at Home: Yes Safety Concerns: Feels Safe At This Time Childhood Exposure to Second-Hand Smoke: Yes caffeine: Yes Dental Care, Regularly: Yes Physical Activity Frequency: Daily Seatbelt Use: sometimes Sunscreen Use: Yes Do you think of yourself as: straight/heterosexual Assistive Devices: None Review of Systems Review of Systems: REVIEW OF SYSTEMS: Constitutional: No fever, sweats or chills Eyes: No diplopia, no worsening or blurred vision ENT: normal hearing, no trouble swallowing, no dental bleeding Respiratory: No cough, sputum, dyspnea at rest or on exertion Cardiovascular: No chest pain, tightness or palpitations Abdomen: (+) nausea and vomiting, No pain, diarrhea or constipation, no blood in stools Musculoskeletal: joint pain, calf pain, swelling Neurologic: (+) generalized weakness, no balance problems, numbness/tingling Psychiatric: No anxiety or depression Skin: No rash or itch Physical Exam Physical Exam: PHYSICAL EXAM: General: awake, alert, fatigued, no apparent distress Head: Normocephalic, atraumatic ENT: PERRL, EOMI, no pharyngeal exudate, mucous membranes moist Neuro: AAO x 3, speech clear and appropriate, strength intact bilaterally 5/5, sensation intact and equal all extremities and dermatomes, no pronator drift Chest: equal rise and fall of the chest, no accessory muscle use, no heaves or thrills, Clear to auscultation, on room air, Cardiac: Regular rate and rhythm, telemetry reviewed, skin warm dry, cap refill <3 seconds, peripheral pulses +2 no JVD, grade III systolic murmur best heard LSB, no edema GI: NABS x 4 quadrants, soft, nontender to palpation, no rebound, guarding or tenderness, soft umbilical hernia that is chronic : Spontaneously voiding, no pain, no CVA tenderness, no hematuria Extremities: Normal inspection, no peripheral edema or erythema, calfs nontender to palpation Psych: Normal mood and affect Skin: pale, bruising to hands, Results & Data Results & Data ([facility]) Vital Signs (Past 12 Hours) Vital Signs Temp Pulse Pulse Resp BP BP Pulse Ox 11/23/20 14:00 36.7 C 73 16 136/63 98 11/23/20 13:41 36.6 C 80 18 143/57 H 98 11/23/20 13:16 77 12 133/60 99 11/23/20 11:38 79 12 95 11/23/20 11:24 79 14 133/60 95 11/23/20 10:39 37 C 91 H 18 131/71 96 Laboratory Results Abnormal lab results 11/23/20 11/23/20 11/23/20 Range/Units 11:07 11:07 11:43 WBC 26.49 H (4.8-10.8) K/uL RBC 2.66 L (4.7-6.1) M/uL Hgb 7.7 L (14.0-18.0) g/dL Hct 24.1 L (42-52) % RDW Std Deviation 62.6 H (36.4-46.3) fL RDW Coeff of Umm 19.3 H (11.5-14.5) % Plt Count 6 L* (130-400) K/uL Absolute Nucleated RBC 2.86 H (0-0) K/uL Neutrophils # (Manual) 9.62 H (1.4-6.5) K/uL Total Absolute Neuts 9.62 H (1.4-6.5) K/uL Lymphocytes # (Manual) 0.72 L (1.2-3.4) K/uL Total Abs Lymphocytes 0.72 L (1.2-3.4) K/uL Monocytes # (Manual) 1.40 H (0.11-0.59) K/uL Eosinophils # (Manual) 2.33 H (0-0.5) K/uL Metamyelocytes # (Man) 2.33 H (0-0) K/uL Myelocytes # (Manual) 4.21 H (0-0) K/uL Promyelocytes # (Man) 0.48 H (0-0) K/uL Blast Cells # (Man) 5.40 H (0-0) K/uL Sodium 133 L (136-145) mmol/L Glucose 108 H (70-99) mg/dl ALT 11 L (12-78) U/L Alkaline Phosphatase 146 H (45-117) U/L Albumin 3.3 L (3.4-5.0) gm/dl Crossmatch See Detail Diagnostic Findings Chest X-Ray 11/23/20 11:35 XR chest 1V portable HISTORY: 80 years-old Male weakness acute weakness COMPARISON: Shoulder radiographs 09/21/2010 TECHNIQUE: Portable AP view the chest FINDINGS: Cardiac mediastinal and hilar silhouettes are within normal limits. There is no pneumothorax, pleural effusion, airspace consolidation or overt pulmonary edema. Degenerative changes of the shoulders and spine. IMPRESSION: No acute process. Electronically signed by: Yinka Anglin M.D. 11/23/2020 11:[address] 11/23/20 11:35 CT OF THE HEAD WITHOUT CONTRAST CLINICAL HISTORY: Headache. COMPARISON STUDY: No previous studies for comparison. CT DOSE: 614.27 mGy.cm TECHNIQUE: Helical axial images of the head were obtained without IV contrast. Automated exposure control was utilized for the study. A dose lowering technique was utilized adhering to the principles of ALARA. FINDINGS: No acute intracranial hemorrhage, midline shift or mass effect is present. Ventricular system is unremarkable. Basal cisterns are patent. There are no extra-axial collections. White matter hypodensities favor small vessel disease. There are no findings to suggest acute dural sinus thrombosis or acute territorial infarct. There are no significant calvarial abnormalities. Suspected mucous retention cyst within the left maxillary sinus is noted. Small left mastoid effusion is present. There is mild sinus mucosal thickening. IMPRESSION: No acute intracranial findings. Electronically signed by: Coleman Brian M.D. 11/23/2020 12:19 PM Medications Administered Sodium Chloride (Nss 1000ml) 1,000 mls @ 125 mls/hr IV .Q8H STA Stop: 11/23/20 19:52 Last Admin: 11/23/20 13:21 Dose: 125 mls/hr Documented by: [id number] Discontinued Medications Sodium Chloride (Nss 1000ml) 500 mls @ 999 mls/hr IV .Q31M ONE Stop: 11/23/20 12:23 Last Infusion: 11/23/20 13:05 Dose: 0 mls/hr Documented by: [id number] Admin: 11/23/20 12:34 Dose: 999 mls/hr Documented by: [id number] Acetaminophen (Ofirmev) 1,000 mg in 100 mls @ 400 mls/hr IV NOW STA Stop: 11/23/20 12:07 Last Infusion: 11/23/20 12:46 Dose: 0 mls/hr Documented by: [id number] Admin: 11/23/20 12:31 Dose: 400 mls/hr Documented by: [id number] Ondansetron HCl (Ondansetron Inj 2 Mg/Ml 2 Ml Vial) 4 mg IV NOW STA Stop: 11/23/20 11:54 Last Admin: 11/23/20 12:00 Dose: 4 mg Documented by: [id number] ECG Additional Comments: Normal sinus rhythm Right bundle branch block Left anterior fascicular block Bifascicular block Minimal voltage criteria for LVH, may be normal variant Code Status & VTE Plan Code Status CODE: Limited- Yes- Electricity and chemicals, NO CPR, NO intubation VTE: SCDS, thrombocytopenia no chemoprophylaxis VTE Prophylaxis Plan VTE Prophylaxis will be ordered: Yes Supervising Physician Co-Signing Physician Notes Patient seen and examined at bedside. Obtained history and physical examination during face to face encounter with patient. I reviewed above note and agree with it. Discussed plan with EVER Hudson. I answered all of the patients questions. Patient is being admitted for anemia and thrombocytopenia. will consult oncology. Will transfuse PRBC AND PLATELETS. PG Care Time/CCT Total # of Minutes Spent Total Time Spent with Patient: Total time spent is greater than 50% in coordination of care (as documented) at patient's floor/unit and/or counseling patient: Coding Level of Care Code 37872 Initial Inpt Care Lvl 3 Diagnoses Thrombocytopenia D69.6 Anemia D64.9 Anemia type: unspecified type Myelofibrosis D75.81 Headache R51.9 Headache chronicity pattern: episodic headache Headache type: unspecified Intractability: not intractable Hyperlipidemia E78.5 Hypertension I10 Leukocytosis D72.829 BPH with obstruction/lower urinary tract symptoms N40.1; N13.8 PMR (polymyalgia rheumatica) M35.3 (1) Anemia Anemia type: unspecified type Qualified Code(s): D64.9 - Anemia, unspecified (2) Headache Headache chronicity pattern: episodic headache Headache type: unspecified Intractability: not intractable Qualified Code(s): R51.9 - Headache, unspecified
[2020-11-23 15:22] LABS: Appearance Urine Clear (Clear); Bacteria Urine Automated Negative (Negative); Bilirubin Urine Negative (Negative); Blood Urine 1+ (Negative); Cast Urine Automated 0 /lpf (0-5); Color Urine Yellow; Glucose Urine UA Negative (Negative); Ketones Urine Negative (Negative); Leukocyte Esterase Urine Trace (Negative); Nitrite Urine Negative (Negative); Protein Urine 1+ (Negative); Specific Gravity Urine 1.012 (1.000-1.030); Urobilinogen Urine Negative (Negative); pH Urine 6.5 (4.5-7.5)
--- NOTE | 2020-11-23 18:31 | Electrocardiogram Report ---
Test Reason : Blood Pressure : / mmHG Vent. Rate : 079 BPM Atrial Rate : 079 BPM P-R Int : 152 ms QRS Dur : 140 ms QT Int : 414 ms P-R-T Axes : 056 -53 029 degrees QTc Int : 474 ms Normal sinus rhythm Right bundle branch block Left anterior fascicular block Bifascicular block Minimal voltage criteria for LVH, may be normal variant Abnormal ECG When compared with ECG of 22-JAN-2017 16:01, Fusion complexes are no longer Present (RBBB and left anterior fascicular block) has replaced Incomplete right bundle branch block Confirmed by Phuc Grant ([id number]) on 11/23/2020 6:31:16 PM Referred By: REFERRED SELF Confirmed By:Grabiel Grant
[2020-11-23] MEDS: ACETAMINOPHEN 325 MG TAB PO PRN (18:33)
[2020-11-23] MEDS: oxyCODONE HCL IR 5 MG TAB (IMMEDIATE RELEASE) PO PRN (21:45)
[2020-11-24] MEDS ORDERED: MoRPHine SULFATE 2 MG/ML CARP IV STA (00:28)
[2020-11-24] MEDS ORDERED: MoRPHine SULFATE 2 MG/ML CARP ONE (00:46)
[2020-11-24] MEDS ORDERED: CALCIUM GLUCONATE 10% 2,000 MG in SODIUM CHLORIDE 0.9% 50 ML IV SCH (01:00)
[2020-11-24] MEDS: ONDANSETRON INJ 2 MG/ML 2 ML VIAL IV PRN ×2 (01:41→17:54)
[2020-11-24 04:27] LABS: BUN Creatinine Ratio 21.2 (10-20); Calcium 8.1 mg/dl (8.5-10.1); Creatinine Clr Calc Pharmacy 121.5 ml/min; Est GFR (African American) 125.9 ml/min; Est GFR (Non-African American) 108.6 ml/min; Magnesium 2.2 mg/dl (1.8-2.4); Potassium 3.9 mmol/L (3.5-5.1)
[2020-11-24 04:31] LABS: Mean Corpuscular Hgb Conc 32.4 g/dL (32-36); Nucleated RBC # (auto) 1.61 K/uL (0-0); Nucleated RBC % (auto) 8.1 %; Platelet Count 4 K/uL (130-400)
[2020-11-24 04:32] LABS: Hematocrit (blood only) 28.1 % (42-52); Hemoglobin 9.1 g/dL (14.0-18.0); Mean Corpuscular Volume 89.5 fL (80-100); RDW Coefficient of Variation 17.9 % (11.5-14.5); RDW Standard Deviation 57.9 fL (36.4-46.3); Red Blood Count 3.14 M/uL (4.7-6.1); White Blood Count 19.97 K/uL (4.8-10.8)
[2020-11-24 04:54] LABS: ALC (manual) 1.28 K/uL (1.2-3.4); ANC (manual) 8.83 K/uL (1.4-6.5); Basophils # (manual) 0.18 K/uL (0-0.2); Basophils % (manual) 0.9 %; Blast # (manual) 2.56 K/uL (0-0); Blast Cells % (manual) 12.8 %; Eosinophils # (manual) 1.28 K/uL (0-0.5); Eosinophils % (manual) 6.4 %; Lymphocytes # (manual) 1.28 K/uL (1.2-3.4); Lymphocytes % (manual) 6.4 %; Metamyelocytes # (manual) 0.56 K/uL (0-0); Metamyelocytes % (manual) 2.8 %; Monocytes # (manual) 1.46 K/uL (0.11-0.59); Monocytes % (manual) 7.3 %; Myelocytes # (manual) 3.47 K/uL (0-0); Myelocytes % (manual) 17.4 %; Neutrophils # (manual) 8.83 K/uL (1.4-6.5); Neutrophils % (manual) 44.2 %; Platelet Estimate SIGNIFIC DECREASED (Normal); Promyelocytes # (manual) 0.36 K/uL (0-0); Promyelocytes % (manual) 1.8 %; Tear Drop Cells 1+
[2020-11-24] MEDS ORDERED: SODIUM CHLORIDE 0.9% 250 ML IV PRN (06:33)
--- NOTE | 2020-11-24 06:40 | CT Scan Report ---
CT OF THE HEAD WITHOUT CONTRAST CLINICAL HISTORY: Worsening headache. COMPARISON STUDY: No previous studies for comparison. CT DOSE: 614.27 mGy.cm TECHNIQUE: Helical axial images of the head were obtained without IV contrast. Automated exposure con trol was utilized for the study. A dose lowering technique was utilized adhering to the principles o f ALARA. FINDINGS: No acute intracranial hemorrhage, midline shift or mass effect is present. Ventricular syst em is unremarkable. Basal cisterns are patent. There are no extra-axial collections. There are no fin dings to suggest acute dural sinus thrombosis or acute territorial infarct. White matter hypodensity suggests small vessel disease. There may be an old lacunar infarct within left basal ganglia. Small a mount of fluid within left mastoid air cells is noted. There is mild mucosal thickening of the right sphenoid sinus. There is mild ethmoid sinus mucosal thickening. IMPRESSION: 1. No acute intracranial findings. 2. Mild sinus mucosal thickening. 3. Small left mastoid effusion. ACT 112: Negative or not required by law. Electronically signed by: Coleman Brian M.D. 11/24/2020 6:39 AM
[2020-11-24] MEDS: ACETAMINOPHEN 325 MG TAB PO PRN ×3 (08:22→22:05)
[2020-11-24] MEDS: THIAMINE HCL 200 MG in SODIUM CHLORIDE 0.9% 50 ML IV SCH (08:22)
[2020-11-24] MEDS: TIMOLOL MALEATE 0.5% OP SOLN 5 ML BTL OPB SCH (08:23)
[2020-11-24] MEDS: TAMSULOSIN HCL 0.4 MG CAP PO SCH (08:24)
[2020-11-24] MEDS: predniSONE 20 MG TAB PO SCH (08:24)
[2020-11-24] MEDS: KETOCONAZOLE 2% CR 15 GM TUBE EXT SCH ×2 (08:24→08:46)
[2020-11-24] MEDS: FINASTERIDE 5 MG TAB PO SCH (08:24)
[2020-11-24] MEDS: HYDROCORTISONE 1% CRM 30 GM TUBE EXT SCH ×2 (08:25→08:46)
[2020-11-24] MEDS: PANTOprazole 40 MG TAB PO SCH (08:25)
[2020-11-24] MEDS ORDERED: THIAMINE HCL 200 MG in SYRINGE 9 ML IV SCH (09:00)
[2020-11-24 17:03] LABS: Platelet Count 5 K/uL (130-400); Platelet Estimate SIGNIFIC DECREASED (Normal)
[2020-11-24] MEDS: IMMUNE GLOBULIN(HUMAN) 10% 100 ML IV SCH ×2 (20:24→21:37)
[2020-11-24] MEDS: DOCUSATE SODIUM 100 MG CAP PO SCH (20:32)
--- NOTE | 2020-11-24 21:49 | Hospitalist Progress Note ---
Date of Service November 24, 2020 Assessment & Plan (1) Thrombocytopenia: Plan: ? cause likely related to his Ruxolitinib - His dose was decreased to 5mg BID in regards to his continuing drop - Will hold Ruxolitinib - Transfused unit platelet with no improvement. will order IV IG 1 gr/kg for 2 days. - SCD for VTE prophylaxis (2) Anemia: HGB at goal, will monitor. - Transfused 2 units of PRBC that already ordered in EMD - Goal >8 - Follow symptoms and blood counts - Patient denies any acute loss (3) Myelofibrosis: As above- current therapy ruxolitinib - on hold (4) Headache: Multifactorial with decrease intake and anemia - continue with normal saline infusion while blood is running - change to LR following blood if continues needing IVF support - Tylenol q6 hours prn - If symptoms worsen repeat non-con head CT as thrombocytopenia with plt count <10 (5) Hyperlipidemia: Patient has stopped his statin at home - continue to follow with PCP - may refuse while in house (6) Hypertension: Controlled - follow with volume replacement and prbc (7) Leukocytosis: Chronic- on steroids - no evidence of infective process- CXR clear, no urinary symtpoms, no fevers/chills (8) BPH with obstruction/lower urinary tract symptoms: Continue outpatient medciations- follow with BP and orthostais (9) PMR (polymyalgia rheumatica): Continues prednisone 20 mg daily - follow closely- if acutely worsen stress dose (2) Anemia: (3) Myelofibrosis: (4) Headache: (5) Hyperlipidemia: (6) Hypertension: (7) Leukocytosis: (8) BPH with obstruction/lower urinary tract symptoms: (9) PMR (polymyalgia rheumatica): Admission and Anticipated Discharge Date Admission Date: November 23, 2020 Subjective Patient reports no new symptoms. Review of Systems Review of Systems: All systems reviewed & are unremarkable except as noted in HPI & below Physical Exam Physical Exam: General: awake, alert, fatigued, no apparent distress Head: Normocephalic, atraumatic ENT: PERRL, EOMI, no pharyngeal exudate, mucous membranes moist Neuro: AAO x 3, speech clear and appropriate, strength intact bilaterally 5/5, sensation intact and equal all extremities and dermatomes, no pronator drift Chest: equal rise and fall of the chest, no accessory muscle use, no heaves or thrills, Clear to auscultation, on room air, Cardiac: Regular rate and rhythm, telemetry reviewed, skin warm dry, cap refill <3 seconds, peripheral pulses +2 no JVD, grade III systolic murmur best heard LSB, no edema GI: NABS x 4 quadrants, soft, nontender to palpation, no rebound, guarding or tenderness, soft umbilical hernia that is chronic : Spontaneously voiding, no pain, no CVA tenderness, no hematuria Extremities: Normal inspection, no peripheral edema or erythema, calfs nontender to palpation Psych: Normal mood and affect Skin: pale, bruising to hands, Results & Data Results & Data ([facility]) Vital Signs (Past 12 Hours) Vital Signs Temp Pulse Pulse Resp BP BP Pulse Ox 11/24/20 21:36 36.8 C 65 16 117/53 L 95 11/24/20 20:43 36.7 C 59 L 16 121/62 96 11/24/20 20:22 36.4 C L 61 16 102/37 L 97 11/24/20 15:53 36.6 C 62 20 137/68 97 PG Care Time/CCT Total # of Minutes Spent Total Time Spent with Patient: Total time spent is greater than 50% in coordination of care (as documented) at patient's floor/unit and/or counseling patient: Coding Level of Care Code 92527 Subseq Hosp Care Lvl 2 Diagnoses Thrombocytopenia D69.6 Anemia D64.9 Myelofibrosis D75.81 Headache R51.9 Headache chronicity pattern: episodic headache Headache type: unspecified Intractability: not intractable Hyperlipidemia E78.5 Hypertension I10 Leukocytosis D72.829 BPH with obstruction/lower urinary tract symptoms N40.1; N13.8 PMR (polymyalgia rheumatica) M35.3 (1) Headache Headache chronicity pattern: episodic headache Headache type: unspecified Intractability: not intractable Qualified Code(s): R51.9 - Headache, unspecified
[2020-11-25] MEDS: IMMUNE GLOBULIN(HUMAN) 10% 100 ML IV SCH ×6 (00:38→22:10)
[2020-11-25 06:38] LABS: Hematocrit (blood only) 28.7 % (42-52); Hemoglobin 9.3 g/dL (14.0-18.0); Mean Corpuscular Hemoglobin 28.3 pg (25-34); Mean Corpuscular Hgb Conc 32.4 g/dL (32-36); Mean Corpuscular Volume 87.2 fL (80-100); Nucleated RBC # (auto) 1.54 K/uL (0-0); Nucleated RBC % (auto) 6.2 %; RDW Coefficient of Variation 18.2 % (11.5-14.5); RDW Standard Deviation 57.4 fL (36.4-46.3); Red Blood Count 3.29 M/uL (4.7-6.1); White Blood Count 24.85 K/uL (4.8-10.8)
[2020-11-25 07:09] LABS: BUN Creatinine Ratio 20.7 (10-20); Calcium 8.1 mg/dl (8.5-10.1); Creatinine Clr Calc Pharmacy 67.7 ml/min; Est GFR (Non-African American) 85.4 ml/min; Magnesium 2.3 mg/dl (1.8-2.4); Potassium 3.8 mmol/L (3.5-5.1)
[2020-11-25 07:42] LABS: ALC (manual) 3.68 K/uL (1.2-3.4); ANC (manual) 9.59 K/uL (1.4-6.5); Basophils # (manual) 0.87 K/uL (0-0.2); Basophils % (manual) 3.5 %; Blast Cells % (manual) 15.7 %; Eosinophils # (manual) 2.16 K/uL (0-0.5); Eosinophils % (manual) 8.7 %; Hypochromasia Present; Lymphocytes # (manual) 3.68 K/uL (1.2-3.4); Lymphocytes % (manual) 14.8 %; Metamyelocytes # (manual) 1.19 K/uL (0-0); Metamyelocytes % (manual) 4.8 %; Monocytes # (manual) 0.65 K/uL (0.11-0.59); Monocytes % (manual) 2.6 %; Myelocytes # (manual) 2.16 K/uL (0-0); Myelocytes % (manual) 8.7 %; Neutrophils # (manual) 9.59 K/uL (1.4-6.5); Neutrophils % (manual) 38.6 %; Ovalocytes 1+; Platelet Estimate SIGNIFIC DECREASED (Normal); Polychromasia 1+; Promyelocytes # (manual) 0.65 K/uL (0-0); Promyelocytes % (manual) 2.6 %
[2020-11-25] MEDS: DOCUSATE SODIUM 100 MG CAP PO SCH ×2 (08:36→19:53)
[2020-11-25] MEDS: FINASTERIDE 5 MG TAB PO SCH (08:36)
[2020-11-25] MEDS: TAMSULOSIN HCL 0.4 MG CAP PO SCH (08:36)
[2020-11-25] MEDS: PANTOprazole 40 MG TAB PO SCH (08:36)
[2020-11-25] MEDS: ACETAMINOPHEN 325 MG TAB PO PRN ×3 (08:36→22:59)
[2020-11-25] MEDS: predniSONE 20 MG TAB PO SCH (08:36)
[2020-11-25] MEDS: HYDROCORTISONE 1% CRM 30 GM TUBE EXT SCH (08:37)
[2020-11-25] MEDS: TIMOLOL MALEATE 0.5% OP SOLN 5 ML BTL OPB SCH (08:37)
[2020-11-25] MEDS: KETOCONAZOLE 2% CR 15 GM TUBE EXT SCH (08:37)
--- NOTE | 2020-11-25 09:44 | Consultation Report ---
DATE OF CONSULTATION: 11/25/2020. REASON FOR CONSULTATION: Pancytopenia attributable to myelofibrosis and refractory thrombocytopenia. HISTORY OF PRESENT ILLNESS: The patient is a very pleasant somewhat complex 80-year-old gentleman we ll known to [facility] with diagnosis of agnogenic myeloid metaplasia. This gentleman presented to the [facility] room complaining of nausea and vomiting with a bifrontal headache. He has become progressively more fatigued with decreased p.o. intake and fluid intake over the past 2 weeks. Again, the patient is very complex, was diagnosed roughly 4 years ago with essential thrombocythemia and his platelet c ount at that time was in excess of 1 million. He was confirmed JAK2 positive. He had continued hydr oxyurea, which had reasonably controlled his platelet count. He had a peripheral blood count, which a ppeared to be consistent with chronic myelogenous leukemia. However, a Bleckley chromosome was n egative. Over the past couple of months, his counts have been progressively down bone marrow biopsy and aspiration was performed revealing severe myelofibrosis. He was subsequently started on Jakafi 5 mg p.o. twice daily. After starting therapy, he definitely noticed improvement with a spleen size a nd discomfort associated with the enlarged spleen. Unfortunately, now his platelet count has dropped precipitously and despite transfusion of single donor platelet pheresis his platelet count failed to improve. Thus, there is an underlying suspicion the patient may have a component of ITP and instruc bryon the hospitalist service to add IV immunoglobulin 1 gram/kg last night and again today. Clinicall y, the patient seems to be feeling much better since admitted to the hospital. He offers no complain ts of pain or discomfort. PAST MEDICAL HISTORY: Again, significant for agnogenic myeloid metaplasia (myelofibrosis) adenomatou s colonic polyps, Yeung's esophagus, bladder wall thickening, BPH, osteoarthritis, hyperlipidemia, hypertension, polymyalgia rheumatica, steroid-induced osteopenia, vitamin D deficiency. PAST SURGICAL HISTORY: Cataract surgery, colonoscopy, exploratory laparotomy, incisional hernia repa ir, inguinal hernia repair and appendectomy. MEDICATIONS: Jakafi 5 mg p.o. b.i.d., currently on hold, prednisone 20 mg p.o. every day, oxycodone 10 mg p.o. q. 4 hours p.r.n., tamsulosin 0.4 mg p.o. every day, finasteride 5 mg p.o. every day, Prot devon 40 mg p.o. every day, cyanocobalamin 1000 mcg p.o. every day, timolol drops 1 drop o.p. daily. ALLERGIES: No known drug allergies. SOCIAL HISTORY: The patient is retired. Resides with his . He is a reformed smoker, nondrinker , nonillicit drug user. FAMILY HISTORY: Positive for diabetes mellitus and colon cancer on his maternal side and coronary ar gilbert disease on his father's side. REVIEW OF SYSTEMS: CONSTITUTIONAL: As per HPI, most notably for general clinical decline, fatigue, asthenia, poor p.o. intake. Negative for fevers, chills or sweats. SKIN: Pale in appearance. No dermatoses or active rashes or lesions. HEENT: Positive for bifrontal headache. Negative for dizziness or lightheadedness. No acute visual or hearing deficits. No sinus symptoms, sore throat or dysphagia. LYMPH: No history of lymphoproliferative disease. CARDIAC: Negative for angina or palpitations. PULMONARY: Positive for shortness of breath. No cough or hemoptysis. Positive for dyspnea on exert ion. GASTROINTESTINAL: Patient suffers from splenomegaly attributable to myelofibrosis, pain has improved since starting Jakafi. GENITOURINARY: No hematuria, dysuria, urinary incontinence. MUSCULOSKELETAL: No focal muscle weakness. Positive for history of osteoarthritis. ENDOCRINE: Negative for diabetes or thyroid disease. NEUROLOGIC: Negative for seizure, stroke or migraine headache. HEMATOLOGIC: Positive for leukocytosis, anemia and thrombocytopenia. ASSESSMENT: 1. Refractory thrombocytopenia. 2. Agnogenic myeloid metaplasia. 3. General clinical decline. 4. Anemia. 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 Patient is a JAK2 positive and thus the rationale for starting Jakafi 5 mg p.o. every day. His disease was manifested by symptomatic splenomegaly which has improved sinc e starting Jakafi. Since hospitalization, he was transfused both packed RBCs and single donor platel ets. Hemoglobin improved appropriately; however, his platelet count has failed to do so. Thus, ther e is an underlying suspicion for immune-mediated thrombocytopenia. Jakafi is currently on hold, wh h we will continue until his counts stabilize. Additionally, IVIG 1 gram/kg to be administered start ing last night and repeated today. Continue to follow the peripheral blood counts on a daily basis. I will see him in followup upon discharge to determine when to restart Jakafi. He otherwise seems t o be doing reasonably well and have nothing further to add at this time. I will continue to follow h im periodically during hospitalization. Job ID: [id number]
[2020-11-25] MEDS: THIAMINE HCL 200 MG in SODIUM CHLORIDE 0.9% 50 ML IV SCH (10:05)
[2020-11-25 13:51] LABS: Platelet Count 7 K/uL (130-400)
--- NOTE | 2020-11-25 21:06 | Hospitalist Progress Note ---
Date of Service November 25, 2020 Assessment & Plan (1) Thrombocytopenia: Plan: ? cause likely related to his Ruxolitinib - His dose was decreased to 5mg BID in regards to his continuing drop - Will hold Ruxolitinib - Transfused unit platelet with no improvement. will order IV IG 1 gr/kg for 2 days. second dose tonight. -platelets improved to 7. - SCD for VTE prophylaxis (2) Anemia: HGB at goal, will monitor. - Transfused 2 units of PRBC that already ordered in EMD - Goal >8 - Follow symptoms and blood counts - Patient denies any acute loss (3) Myelofibrosis: As above- current therapy ruxolitinib - on hold (4) Headache: Multifactorial with decrease intake and anemia - continue with normal saline infusion while blood is running - change to LR following blood if continues needing IVF support - Tylenol q6 hours prn - If symptoms worsen repeat non-con head CT as thrombocytopenia with plt count <10 (5) Hyperlipidemia: Patient has stopped his statin at home - continue to follow with PCP - may refuse while in house (6) Hypertension: Controlled - follow with volume replacement and prbc (7) Leukocytosis: Chronic- on steroids - no evidence of infective process- CXR clear, no urinary symtpoms, no fevers/chills (8) BPH with obstruction/lower urinary tract symptoms: Continue outpatient medciations- follow with BP and orthostais (9) PMR (polymyalgia rheumatica): Continues prednisone 20 mg daily - follow closely- if acutely worsen stress dose (2) Anemia: (3) Myelofibrosis: (4) Headache: (5) Hyperlipidemia: (6) Hypertension: (7) Leukocytosis: (8) BPH with obstruction/lower urinary tract symptoms: (9) PMR (polymyalgia rheumatica): Admission and Anticipated Discharge Date Admission Date: November 23, 2020 Subjective Patient had a reaction to the IVIG. Once rate was decreased, chills, subsided Review of Systems Review of Systems: All systems reviewed & are unremarkable except as noted in HPI & below Physical Exam Physical Exam: General: awake, alert, fatigued, no apparent distress Head: Normocephalic, atraumatic ENT: PERRL, EOMI, no pharyngeal exudate, mucous membranes moist Neuro: AAO x 3, speech clear and appropriate, strength intact bilaterally 5/5, sensation intact and equal all extremities and dermatomes, no pronator drift Chest: equal rise and fall of the chest, no accessory muscle use, no heaves or thrills, Clear to auscultation, on room air, Cardiac: Regular rate and rhythm, telemetry reviewed, skin warm dry, cap refill <3 seconds, peripheral pulses +2 no JVD, grade III systolic murmur best heard LSB, no edema GI: NABS x 4 quadrants, soft, nontender to palpation, no rebound, guarding or tenderness, soft umbilical hernia that is chronic : Spontaneously voiding, no pain, no CVA tenderness, no hematuria Extremities: Normal inspection, no peripheral edema or erythema, calfs nontender to palpation Psych: Normal mood and affect Skin: pale, bruising to hands, Results & Data Results & Data ([facility]) Vital Signs (Past 12 Hours) Vital Signs Temp Pulse Resp BP Pulse Ox 11/25/20 15:45 37.0 C 77 18 133/60 96 11/25/20 11:29 36.4 C L 74 18 126/74 97 PG Care Time/CCT Total # of Minutes Spent Total Time Spent with Patient: Total time spent is greater than 50% in coordination of care (as documented) at patient's floor/unit and/or counseling patient: Coding Level of Care Code 16562 Subseq Hosp Care Lvl 2 Diagnoses Thrombocytopenia D69.6 Anemia D64.9 Myelofibrosis D75.81 Headache R51.9 Headache chronicity pattern: episodic headache Headache type: unspecified Intractability: not intractable Hyperlipidemia E78.5 Hypertension I10 Leukocytosis D72.829 BPH with obstruction/lower urinary tract symptoms N40.1; N13.8 PMR (polymyalgia rheumatica) M35.3 Time Spent (min) 25 (1) Headache Headache chronicity pattern: episodic headache Headache type: unspecified Intractability: not intractable Qualified Code(s): R51.9 - Headache, unspecified
[2020-11-26] MEDS: IMMUNE GLOBULIN(HUMAN) 10% 100 ML IV SCH ×4 (00:29→07:36)
[2020-11-26] MEDS: oxyCODONE HCL IR 5 MG TAB (IMMEDIATE RELEASE) PO PRN ×3 (03:20→19:50)
[2020-11-26 06:51] LABS: Calcium 7.8 mg/dl (8.5-10.1); Est GFR (African American) 106.6 ml/min; Magnesium 2.1 mg/dl (1.8-2.4); Potassium 3.4 mmol/L (3.5-5.1)
[2020-11-26 06:59] LABS: Hemoglobin 8.6 g/dL (14.0-18.0); Mean Corpuscular Hemoglobin 28.9 pg (25-34); Mean Corpuscular Hgb Conc 31.9 g/dL (32-36); Mean Corpuscular Volume 90.6 fL (80-100); Nucleated RBC # (auto) 1.15 K/uL (0-0); Nucleated RBC % (auto) 5.7 %; Platelet Count 2 K/uL (130-400); RDW Coefficient of Variation 18.4 % (11.5-14.5); RDW Standard Deviation 60.2 fL (36.4-46.3); Red Blood Count 2.98 M/uL (4.7-6.1); White Blood Count 20.04 K/uL (4.8-10.8)
[2020-11-26] MEDS: ACETAMINOPHEN 325 MG TAB PO PRN (07:30)
[2020-11-26] MEDS: DOCUSATE SODIUM 100 MG CAP PO SCH ×2 (07:30→19:50)
[2020-11-26] MEDS: FINASTERIDE 5 MG TAB PO SCH (07:31)
[2020-11-26] MEDS: PANTOprazole 40 MG TAB PO SCH (07:31)
[2020-11-26] MEDS: TAMSULOSIN HCL 0.4 MG CAP PO SCH (07:31)
[2020-11-26] MEDS: predniSONE 20 MG TAB PO SCH (07:31)
[2020-11-26] MEDS: KETOCONAZOLE 2% CR 15 GM TUBE EXT SCH (07:32)
[2020-11-26] MEDS: HYDROCORTISONE 1% CRM 30 GM TUBE EXT SCH (07:32)
[2020-11-26 08:09] LABS: ALC (manual) 1.06 K/uL (1.2-3.4); ANC (manual) 5.31 K/uL (1.4-6.5); Blast # (manual) 4.09 K/uL (0-0); Blast Cells % (manual) 20.4 %; Eosinophils # (manual) 1.94 K/uL (0-0.5); Eosinophils % (manual) 9.7 %; Lymphocytes # (manual) 1.06 K/uL (1.2-3.4); Lymphocytes % (manual) 5.3 %; Metamyelocytes # (manual) 1.42 K/uL (0-0); Metamyelocytes % (manual) 7.1 %; Monocytes % (manual) 3.5 %; Myelocytes # (manual) 3.55 K/uL (0-0); Myelocytes % (manual) 17.7 %; Neutrophils # (manual) 5.31 K/uL (1.4-6.5); Neutrophils % (manual) 26.5 %; Promyelocytes # (manual) 0.36 K/uL (0-0); Promyelocytes % (manual) 1.8 %; Tear Drop Cells 1+
[2020-11-26] MEDS: THIAMINE HCL 200 MG in SODIUM CHLORIDE 0.9% 50 ML IV SCH (08:39)
[2020-11-26] MEDS: TIMOLOL MALEATE 0.5% OP SOLN 5 ML BTL OPB SCH (08:40)
--- NOTE | 2020-11-26 20:36 | Hospitalist Progress Note ---
Date of Service November 26, 2020 Assessment & Plan (1) Thrombocytopenia: Plan: ? cause likely related to his Ruxolitinib - His dose was decreased to 5mg BID in regards to his continuing drop - Will hold Ruxolitinib - Transfused unit platelet with no improvement. will order IV IG 1 gr/kg for 2 days. second dose completed this morning. will recheck plateltes in AM. -platelets are a 2, but no sign of bleeding. - SCD for VTE prophylaxis (2) Anemia: HGB at goal, will monitor. - Transfused 2 units of PRBC that already ordered in EMD - Goal >8 - Follow symptoms and blood counts - Patient denies any acute loss (3) Myelofibrosis: As above- current therapy ruxolitinib - on hold (4) Headache: Multifactorial with decrease intake and anemia - continue with normal saline infusion while blood is running - change to LR following blood if continues needing IVF support - Tylenol q6 hours prn - If symptoms worsen repeat non-con head CT as thrombocytopenia with plt count <10 (5) Hyperlipidemia: Patient has stopped his statin at home - continue to follow with PCP - may refuse while in house (6) Hypertension: Controlled - follow with volume replacement and prbc (7) Leukocytosis: Chronic- on steroids - no evidence of infective process- CXR clear, no urinary symtpoms, no fevers/chills (8) BPH with obstruction/lower urinary tract symptoms: Continue outpatient medciations- follow with BP and orthostais (9) PMR (polymyalgia rheumatica): Continues prednisone 20 mg daily - follow closely- if acutely worsen stress dose (2) Anemia: (3) Myelofibrosis: (4) Headache: (5) Hyperlipidemia: (6) Hypertension: (7) Leukocytosis: (8) BPH with obstruction/lower urinary tract symptoms: (9) PMR (polymyalgia rheumatica): Admission and Anticipated Discharge Date Admission Date: November 23, 2020 Subjective Patient reports no new symptoms. Review of Systems Review of Systems: All systems reviewed & are unremarkable except as noted in HPI & below Physical Exam Physical Exam: General: awake, alert, fatigued, no apparent distress Head: Normocephalic, atraumatic ENT: PERRL, EOMI, no pharyngeal exudate, mucous membranes moist Neuro: AAO x 3, speech clear and appropriate, strength intact bilaterally 5/5, sensation intact and equal all extremities and dermatomes, no pronator drift Chest: equal rise and fall of the chest, no accessory muscle use, no heaves or thrills, Clear to auscultation, on room air, Cardiac: Regular rate and rhythm, telemetry reviewed, skin warm dry, cap refill <3 seconds, peripheral pulses +2 no JVD, grade III systolic murmur best heard LSB, no edema GI: NABS x 4 quadrants, soft, nontender to palpation, no rebound, guarding or tenderness, soft umbilical hernia that is chronic : Spontaneously voiding, no pain, no CVA tenderness, no hematuria Extremities: Normal inspection, no peripheral edema or erythema, calfs nontender to palpation Psych: Normal mood and affect Skin: pale, bruising to hands, Results & Data Results & Data ([facility]) Vital Signs (Past 12 Hours) Vital Signs Temp Pulse Resp BP Pulse Ox 11/26/20 15:33 36.5 C 89 16 129/64 94 11/26/20 10:18 37.3 C 83 16 127/63 94 PG Care Time/CCT Total # of Minutes Spent Total Time Spent with Patient: Total time spent is greater than 50% in coordination of care (as documented) at patient's floor/unit and/or counseling patient: Coding Level of Care Code 04983 Subseq Hosp Care Lvl 2 Diagnoses Thrombocytopenia D69.6 Anemia D64.9 Myelofibrosis D75.81 Headache R51.9 Headache chronicity pattern: episodic headache Headache type: unspecified Intractability: not intractable Hyperlipidemia E78.5 Hypertension I10 Leukocytosis D72.829 BPH with obstruction/lower urinary tract symptoms N40.1; N13.8 PMR (polymyalgia rheumatica) M35.3 Time Spent (min) 25 (1) Headache Headache chronicity pattern: episodic headache Headache type: unspecified Intractability: not intractable Qualified Code(s): R51.9 - Headache, unspecif ied
--- NOTE | 2020-11-27 04:34 | Communication Note ---
Date of Service: November 27, 2020 Alerted by nursing that the patient experienced a fall. Patient is alert and oriented x3, CT head was obtained negative for acute intracranial pathology. On physical exam patient has a cut above his right eye which is achieved hemostasis and hematoma on his right forehead. Patient's was made aware of the situation. Patient sleeping comfortably. -Supportive care Resident Activity Tracking Resident Involvement: Resident Care Provided Care Provided: [facility]
--- NOTE | 2020-11-27 06:52 | CT Scan Report ---
HEAD CT NONCONTRAST CT DOSE: 614.27 mGy.cm HISTORY: fall TECHNIQUE: Multiaxial CT images of the head were performed without the use of intravenous contrast. A utomated exposure control was utilized for this study. A dose lowering technique was utilized adheri ng to the principles of ALARA. Comparison: Head CT 11/24/2020. Findings: Small left mastoid effusion. Right frontal and posterior scalp swelling. The calvarium and skull base are intact. There is no mass, hematoma, midline shift, acute infarct. White matter hypoden sity is nonspecific but suggestive of microvascular ischemic change. The ventricles and sulci demonst rate mild age-related involutional changes. Impression: No acute intracranial abnormality. Right-sided scalp injury. ACT 112: Negative or not required by law. Electronically signed by: Thee Sanches M.D. 11/27/2020 6:51 AM
--- NOTE | 2020-11-27 08:23 | Hospitalist Progress Note ---
Date of Service November 27, 2020 Assessment & Plan (1) Thrombocytopenia: Plan: ? cause likely related to his Ruxolitinib - His dose was decreased to 5mg BID in regards to his continuing drop - Will hold Ruxolitinib - Transfused unit platelet with no improvement. ordered IV IG 1 gr/kg for 2 days. second dose completed n 11/26 -platelets are a 6, but no sign of bleeding. -will recheck in AM. - SCD for VTE prophylaxis (2) Anemia: Plan: HGB at goal, will monitor. - Transfused 2 units of PRBC that already ordered in EMD - Goal >8 - Follow symptoms and blood counts - Patient denies any acute loss (3) Myelofibrosis: Plan: As above- current therapy ruxolitinib - on hold (4) Headache: Plan: Multifactorial with decrease intake and anemia - continue with normal saline infusion while blood is running - change to LR following blood if continues needing IVF support - Tylenol q6 hours prn - If symptoms worsen repeat non-con head CT as thrombocytopenia with plt count <10 (5) Hyperlipidemia: Plan: Patient has stopped his statin at home - continue to follow with PCP - may refuse while in house (6) Hypertension: Plan: Controlled - follow with volume replacement and prbc (7) Leukocytosis: Plan: Chronic- on steroids - no evidence of infective process- CXR clear, no urinary symtpoms, no fevers/chills (8) BPH with obstruction/lower urinary tract symptoms: Plan: Continue outpatient medciations- follow with BP and orthostais (9) PMR (polymyalgia rheumatica): Plan: Continues prednisone 20 mg daily - follow closely- if acutely worsen stress dose (10) Fall: Plan: Patient had a fall overnight as he did not call the nurse when he stood up to use the urinal. He stood up and fell and hit his head. Had a small bleed. Had a negative CT scan of the head. (11) Hematoma: Plan: secondary to fall. will monitor. (12) Tachycardia: Plan: Unsure of cause. will obtain morning blood work and monitor. Patient was tachycardic throughout the night. STAT cbc ordered This was later found to be elevated at over 30. Procal was also elevated. However, this may be falsely elevated from inflammation ad patient may be in ITP and received IVIG. Patient improved with IV fluids and is asymptomatic in the afternoon. HR also improved to the 90s. Admission and Anticipated Discharge Date Admission Date: November 23, 2020 Subjective Patient reports feeling well today. Review of Systems Review of Systems: All systems reviewed & are unremarkable except as noted in HPI & below Physical Exam Physical Exam: General: awake, alert, fatigued, no apparent distress Head: Normocephalic, hemaoma on right forehead. ENT: PERRL, EOMI, no pharyngeal exudate, mucous membranes moist Neuro: AAO x 3, speech clear and appropriate, strength intact bilaterally 5/5, sensation intact and equal all extremities and dermatomes, no pronator drift Chest: equal rise and fall of the chest, no accessory muscle use, no heaves or thrills, Clear to auscultation, on room air, Cardiac: Regular rate and rhythm, telemetry reviewed, skin warm dry, cap refill <3 seconds, peripheral pulses +2 no JVD, grade III systolic murmur best heard LSB, no edema GI: NABS x 4 quadrants, soft, nontender to palpation, no rebound, guarding or tenderness, soft umbilical hernia that is chronic : Spontaneously voiding, no pain, no CVA tenderness, no hematuria Extremities: Normal inspection, no peripheral edema or erythema, calfs nontender to palpation Psych: Normal mood and affect Skin: pale, bruising to hands, Results & Data Results & Data ([facility]) Vital Signs (Past 12 Hours) Vital Signs Temp Pulse Pulse Resp BP Pulse Ox 11/27/20 07:48 120 H 125 H 98/60 L 11/27/20 07:08 36.7 C 129 H 16 94/57 L 92 11/27/20 02:45 147 H 25 H 158/79 H 95 11/26/20 21:44 36.8 C 110 H 18 137/71 94 PG Care Time/CCT Total # of Minutes Spent Total Time Spent with Patient: Total time spent is greater than 50% in coordination of care (as documented) at patient's floor/unit and/or counseling patient: Coding Level of Care Code 91477 Subseq Hosp Care Lvl 3 Diagnoses Thrombocytopenia D69.6 Anemia D64.9 Myelofibrosis D75.81 Headache R51.9 Headache chronicity pattern: episodic headache Headache type: unspecified Intractability: not intractable Hyperlipidemia E78.5 Hypertension I10 Leukocytosis D72.829 BPH with obstruction/lower urinary tract symptoms N40.1; N13.8 PMR (polymyalgia rheumatica) M35.3 Fall W19.XXXA Hematoma T14.8XXA Tachycardia R00.0 Time Spent (min) 40 (1) Headache Headache chronicity pattern: episodic headache Headache type: unspecified Intractability: not intractable Qualified Code(s): R51.9 - Headache, unspecified
[2020-11-27 09:02] LABS: Hematocrit (blood only) 25.5 % (42-52); Hemoglobin 8.3 g/dL (14.0-18.0); Mean Corpuscular Hemoglobin 28.8 pg (25-34); Mean Corpuscular Hgb Conc 32.5 g/dL (32-36); Mean Corpuscular Volume 88.5 fL (80-100); Nucleated RBC # (auto) 2.04 K/uL (0-0); Nucleated RBC % (auto) 5.5 %; Platelet Count 6 K/uL (130-400); RDW Coefficient of Variation 18.2 % (11.5-14.5); RDW Standard Deviation 58.4 fL (36.4-46.3); Red Blood Count 2.88 M/uL (4.7-6.1); White Blood Count 37.17 K/uL (4.8-10.8)
[2020-11-27 09:13] LABS: Albumin Level 2.2 gm/dl (3.4-5.0); BUN Creatinine Ratio 20.3 (10-20); Bilirubin Direct 0.9 mg/dl (0-0.2); Bilirubin,Total 1.7 mg/dl (0.2-1); Calcium 7.7 mg/dl (8.5-10.1); Creatinine Clr Calc Pharmacy 47.3 ml/min; Est GFR (African American) 71.3 ml/min; Est GFR (Non-African American) 61.5 ml/min; Potassium 4.1 mmol/L (3.5-5.1); Total Protein 6.7 gm/dl (6.4-8.2)
[2020-11-27 09:23] LABS: ALC (manual) 4.13 K/uL (1.2-3.4); ANC (manual) 12.41 K/uL (1.4-6.5); Basophils # (manual) 1.71 K/uL (0-0.2); Basophils % (manual) 4.6 %; Blast # (manual) 8.25 K/uL (0-0); Blast Cells % (manual) 22.2 %; Eosinophils # (manual) 1.38 K/uL (0-0.5); Eosinophils % (manual) 3.7 %; Lymphocytes # (manual) 4.13 K/uL (1.2-3.4); Lymphocytes % (manual) 11.1 %; Metamyelocytes # (manual) 1.04 K/uL (0-0); Metamyelocytes % (manual) 2.8 %; Monocytes # (manual) 2.75 K/uL (0.11-0.59); Monocytes % (manual) 7.4 %; Myelocytes # (manual) 3.79 K/uL (0-0); Myelocytes % (manual) 10.2 %; Neutrophils # (manual) 12.41 K/uL (1.4-6.5); Neutrophils % (manual) 33.4 %; Ovalocytes 1+; Platelet Estimate SIGNIFIC DECREASED (Normal); Promyelocytes # (manual) 1.71 K/uL (0-0); Promyelocytes % (manual) 4.6 %; Tear Drop Cells 1+
[2020-11-27] MEDS: DOCUSATE SODIUM 100 MG CAP PO SCH ×2 (09:32→20:33)
[2020-11-27] MEDS: PANTOprazole 40 MG TAB PO SCH (09:32)
[2020-11-27] MEDS: predniSONE 20 MG TAB PO SCH (09:32)
[2020-11-27] MEDS: TAMSULOSIN HCL 0.4 MG CAP PO SCH (09:33)
[2020-11-27] MEDS: FINASTERIDE 5 MG TAB PO SCH (09:33)
[2020-11-27] MEDS: HYDROCORTISONE 1% CRM 30 GM TUBE EXT SCH (09:34)
[2020-11-27] MEDS: TIMOLOL MALEATE 0.5% OP SOLN 5 ML BTL OPB SCH (09:34)
[2020-11-27] MEDS: KETOCONAZOLE 2% CR 15 GM TUBE EXT SCH (09:35)
[2020-11-27] MEDS: THIAMINE HCL 200 MG in SODIUM CHLORIDE 0.9% 50 ML IV SCH (09:41)
[2020-11-27] MEDS: LACTATED RINGER'S 1,000 ML IV SCH ×2 (09:45→17:50)
[2020-11-27] MEDS: ACETAMINOPHEN 325 MG TAB PO PRN (14:35)
[2020-11-27 18:47] LABS: BUN Creatinine Ratio 27.6 (10-20); Calcium 7.7 mg/dl (8.5-10.1); Creatinine Clr Calc Pharmacy 54.6 ml/min; Est GFR (African American) 84.6 ml/min; Potassium 4.2 mmol/L (3.5-5.1)
[2020-11-27] MEDS ORDERED: OPTIRAY 320 100ml IV ONE (20:15)
[2020-11-27] MEDS: oxyCODONE HCL IR 5 MG TAB (IMMEDIATE RELEASE) PO PRN (20:33)
[2020-11-28 06:46] LABS: Hematocrit (blood only) 26.1 % (42-52); Hemoglobin 8.5 g/dL (14.0-18.0); Mean Corpuscular Hemoglobin 29.2 pg (25-34); Mean Corpuscular Hgb Conc 32.6 g/dL (32-36); Mean Corpuscular Volume 89.7 fL (80-100); Nucleated RBC # (auto) 1.44 K/uL (0-0); Platelet Count 6 K/uL (130-400); RDW Coefficient of Variation 18.5 % (11.5-14.5); RDW Standard Deviation 59.9 fL (36.4-46.3); Red Blood Count 2.91 M/uL (4.7-6.1); White Blood Count 35.73 K/uL (4.8-10.8)
[2020-11-28 06:51] LABS: Albumin Level 2.2 gm/dl (3.4-5.0); BUN Creatinine Ratio 32.1 (10-20); Creatinine Clr Calc Pharmacy 70.3 ml/min; Est GFR (African American) 100.6 ml/min; Est GFR (Non-African American) 86.8 ml/min; Potassium 4.2 mmol/L (3.5-5.1)
[2020-11-28 06:54] LABS: Albumin Globulin Ratio 0.5 (0.9-2); Bilirubin,Total 1.6 mg/dl (0.2-1); Globulin 4.1 gm/dl (2.5-4.0); Total Protein 6.3 gm/dl (6.4-8.2)
[2020-11-28 07:11] LABS: ALC (manual) 5.79 K/uL (1.2-3.4); ANC (manual) 11.58 K/uL (1.4-6.5); Basophils # (manual) 1.04 K/uL (0-0.2); Basophils % (manual) 2.9 %; Blast # (manual) 6.79 K/uL (0-0); Eosinophils # (manual) 1.72 K/uL (0-0.5); Eosinophils % (manual) 4.8 %; Lymphocytes # (manual) 5.79 K/uL (1.2-3.4); Lymphocytes % (manual) 16.2 %; Monocytes # (manual) 2.72 K/uL (0.11-0.59); Monocytes % (manual) 7.6 %; Myelocytes # (manual) 4.75 K/uL (0-0); Myelocytes % (manual) 13.3 %; Neutrophils # (manual) 11.58 K/uL (1.4-6.5); Neutrophils % (manual) 32.4 %; Platelet Estimate SIGNIFIC DECREASED (Normal); Promyelocytes # (manual) 1.36 K/uL (0-0); Promyelocytes % (manual) 3.8 %; Tear Drop Cells 1+
--- NOTE | 2020-11-28 09:31 | CT Scan Report ---
ABDOMEN AND PELVIS CT WITH IV CONTRAST CT DOSE: 392.00 mGy.cm HISTORY: SPLENOMEGALY/LUQ PAIN/ ELEVATED BILIRUBIN TECHNIQUE: Multiaxial CT images of the abdomen and pelvis were performed following the use of intrave nous contrast. A dose lowering technique was utilized adhering to the principles of ALARA. COMPARISON STUDY: Abdomen and pelvis CT 05/21/2020. FINDINGS: The spleen is increased in size and now measures 22 cm in length. Focal geographic hypodens ity within the inferior aspect of the spleen consistent with a splenic infarct. This is new from the prior study. There are small bilateral pleural effusions, left greater than right. Consolidation with in the bilateral lower lobes posteriorly favors compressive atelectasis from the pleural effusions. M ild elevation of the left hemidiaphragm likely due to the splenomegaly. There is mild hepatic steatos is. The gallbladder, adrenal glands, and pancreas are unremarkable. No hydronephrosis. Stable right r enal cyst. Focal area of heterogeneous enhancement within the lower pole the right kidney which measu res 2.8 cm. This is new from the prior study and may represent a developing pyelonephritis. There is mild bilateral perinephric edema. There is mild body wall edema. The prostate gland remains mildly en larged. Anterior bladder diverticulum is again noted. There is mild bladder wall thickening at the le ft bladder dome. This remains unchanged. This is best seen on image 384. Colonic diverticulosis. No e vidence for acute diverticulitis. The main portal vein is patent. No retroperitoneal lymphadenopathy. Calcified plaque within the ectatic abdominal aorta. Moderate well-formed stool within the colon. No bowel wall thickening or obstruction. IMPRESSION: 1. Progressive splenomegaly with interval development of a wedge-shaped splenic hypodensity. This lik vidya represents a splenic infarct. A splenic laceration is considered less likely. 2. A 2.8 cm focus of heterogeneous enhancement within the lower pole the right kidney. This is new fr om the prior study and could represent a pyelonephritis. Recommend correlation with urinalysis. 3. Redemonstration of the asymmetric wall thickening at the left bladder dome. Consider follow-up cys toscopy for further evaluation. 4. Small bilateral pleural effusions. 5. Additional findings as described above. ACT 112: Negative or not required by law. Electronically signed by: Thee Sanches M.D. 11/28/2020 9:30 AM
[2020-11-28] MEDS: PANTOprazole 40 MG TAB PO SCH (10:22)
[2020-11-28] MEDS: ACETAMINOPHEN 325 MG TAB PO PRN ×3 (10:22→23:21)
[2020-11-28] MEDS: DOCUSATE SODIUM 100 MG CAP PO SCH ×2 (10:22→20:46)
[2020-11-28] MEDS: TAMSULOSIN HCL 0.4 MG CAP PO SCH (10:22)
[2020-11-28] MEDS: FINASTERIDE 5 MG TAB PO SCH (10:22)
[2020-11-28] MEDS: predniSONE 20 MG TAB PO SCH (10:22)
[2020-11-28] MEDS: KETOCONAZOLE 2% CR 15 GM TUBE EXT SCH (10:23)
[2020-11-28] MEDS: TIMOLOL MALEATE 0.5% OP SOLN 5 ML BTL OPB SCH (10:23)
[2020-11-28] MEDS: HYDROCORTISONE 1% CRM 30 GM TUBE EXT SCH (10:24)
[2020-11-28] MEDS: THIAMINE HCL 200 MG in SODIUM CHLORIDE 0.9% 50 ML IV SCH (10:32)
--- NOTE | 2020-11-28 10:46 | Ultrasound Report ---
RENAL ULTRASOUND CLINICAL HISTORY: right kidney hypodense lesion COMPARISON STUDY: CT of the abdomen and pelvis November 27, 2020. TECHNIQUE: Sonography of the kidneys and the urinary bladder was performed. FINDINGS: Incidental note is made of splenomegaly as well as a hypoechoic focus within the spleen, be tter depicted on CT of November 27, 2020. There is no hydronephrosis. The right kidney measures 10 cm in maximal dimension. The left kidney measures 10 cm in maximal dimension. Note is made of a 7.9 cm cyst arising from the upper pole of the right kidney. The hypodense focus within the lower pole of the ri ght kidney on CT of November 27, 2020 is not visualized on this exam. Bladder wall thickening is again no bryon. The prostate is enlarged. IMPRESSION: 1. No hydronephrosis. 2. Nonvisualization of the hypodense focus within the lower pole of the right [facility] 3. 7.9 cm right renal cyst. 4. Splenomegaly and redemonstration of a hypoechoic focus which favors a splenic infarct, better depi cted by CT. 5. Nonspecific bladder wall thickening. ACT 112: Negative or not required by law. Electronically signed by: Coleman Brian M.D. 11/28/2020 10:45 AM
[2020-11-28 15:52] LABS: Platelet Count 9 K/uL (130-400)
[2020-11-28 16:10] LABS: Platelet Estimate SIGNIFIC DECREASED (Normal)
[2020-11-28] MEDS: oxyCODONE HCL IR 5 MG TAB (IMMEDIATE RELEASE) PO PRN ×2 (16:44→20:45)
[2020-11-28] MEDS: ONDANSETRON INJ 2 MG/ML 2 ML VIAL IV PRN (16:46)
--- NOTE | 2020-11-28 20:38 | Hospitalist Progress Note ---
Date of Service November 28, 2020 Assessment & Plan (1) Thrombocytopenia: Plan: ? cause likely related to his Ruxolitinib - His dose was decreased to 5mg BID in regards to his continuing drop - Will hold Ruxolitinib - Transfused unit platelet with no improvement. ordered IV IG 1 gr/kg for 2 days. second dose completed on 11/26 -platelets are a 6, but no sign of bleeding. on 11/27 -on 11/28: transufused another unit of platelets. Checked count 1 hour once transfusion completed:platelet of 9 - SCD for VTE prophylaxis (2) Anemia: Plan: HGB at goal, will monitor. - Transfused 2 units of PRBC that already ordered in EMD - Goal >8 - Follow symptoms and blood counts - Patient denies any acute loss (3) Myelofibrosis: Plan: As above- current therapy ruxolitinib - on hold (4) Headache: Plan: Multifactorial with decrease intake and anemia - continue with normal saline infusion while blood is running - change to LR following blood if continues needing IVF support - Tylenol q6 hours prn - If symptoms worsen repeat non-con head CT as thrombocytopenia with plt count <10 (5) Hyperlipidemia: Plan: Patient has stopped his statin at home - continue to follow with PCP - may refuse while in house (6) Hypertension: Plan: Controlled - follow with volume replacement and prbc (7) Leukocytosis: Plan: Chronic- on steroids - no evidence of infective process- CXR clear, no urinary symtpoms, no fevers/chills (8) BPH with obstruction/lower urinary tract symptoms: Plan: Continue outpatient medciations- follow with BP and orthostais (9) PMR (polymyalgia rheumatica): Plan: Continues prednisone 20 mg daily - follow closely- if acutely worsen stress dose (10) Fall: Plan: Patient had a fall overnight as he did not call the nurse when he stood up to use the urinal. He stood up and fell and hit his head. Had a small bleed. Had a negative CT scan of the head. (11) Hematoma: Plan: secondary to fall. will monitor. (12) Tachycardia: Plan: Unsure of cause. will obtain morning blood work and monitor. Patient was tachycardic throughout the night of 11/27-11/28 STAT cbc ordered This was later found to be elevated at over 30. Procal was also elevated. However, this may be falsely elevated from inflammation and patient may be in ITP and received IVIG. Patient improved with IV fluids and is asymptomatic in the afternoon. HR also improved to the 90s. On 11/28 this has resolved and patient is asymptomatic checked renal U/S which was normal. CT scan has shown a possible 2.8 cm focus of heterogeneous enhancement within the lower pole the right kidney. Admission and Anticipated Discharge Date Admission Date: November 23, 2020 Subjective Patient has no new complaints. Review of Systems Review of Systems: All systems reviewed & are unremarkable except as noted in HPI & below Physical Exam Physical Exam: General: awake, alert, fatigued, no apparent distress Head: Normocephalic, hemaoma on right forehead. ENT: PERRL, EOMI, no pharyngeal exudate, mucous membranes moist Neuro: AAO x 3, speech clear and appropriate, strength intact bilaterally 5/5, sensation intact and equal all extremities and dermatomes, no pronator drift Chest: equal rise and fall of the chest, no accessory muscle use, no heaves or thrills, Clear to auscultation, on room air, Cardiac: Regular rate and rhythm, telemetry reviewed, skin warm dry, cap refill <3 seconds, peripheral pulses +2 no JVD, grade III systolic murmur best heard LSB, no edema GI: NABS x 4 quadrants, soft, nontender to palpation, no rebound, guarding or tenderness, soft umbilical hernia that is chronic : Spontaneously voiding, no pain, no CVA tenderness, no hematuria Extremities: Normal inspection, no peripheral edema or erythema, calfs nontender to palpation Psych: Normal mood and affect Skin: pale, bruising to hands, Results & Data Results & Data ([facility]) Vital Signs (Past 12 Hours) Vital Signs Temp Pulse Resp BP 11/28/20 11:04 36.7 C 61 18 110/71 PG Care Time/CCT Total # of Minutes Spent Total Time Spent with Patient: Total time spent is greater than 50% in coordination of care (as documented) at patient's floor/unit and/or counseling patient: Coding Level of Care Code 57714 Subseq Hosp Care Lvl 2 Diagnoses Thrombocytopenia D69.6 Anemia D64.9 Myelofibrosis D75.81 Headache R51.9 Headache chronicity pattern: episodic headache Headache type: unspecified Intractability: not intractable Hyperlipidemia E78.5 Hypertension I10 Leukocytosis D72.829 BPH with obstruction/lower urinary tract symptoms N40.1; N13.8 PMR (polymyalgia rheumatica) M35.3 Fall W19.XXXA Hematoma T14.8XXA Tachycardia R00.0 Time Spent (min) 25 (1) Headache Headache chronicity pattern: episodic headache Headache type: unspecified In tractability: not intractable Qualified Code(s): R51.9 - Headache, unspecified
[2020-11-29] MEDS: oxyCODONE HCL IR 5 MG TAB (IMMEDIATE RELEASE) PO PRN ×3 (00:26→20:27)
[2020-11-29] MEDS: ONDANSETRON INJ 2 MG/ML 2 ML VIAL IV PRN ×2 (00:31→20:27)
[2020-11-29 06:56] LABS: Appearance Urine Clear (Clear); Blood Urine 3+ (Negative); Color Urine Dark Yellow; Glucose Urine UA Negative (Negative); Ketones Urine Trace (Negative); Leukocyte Esterase Urine Trace (Negative); Nitrite Urine Negative (Negative); Protein Urine Trace (Negative); RBC Urine Automated >30 /hpf (0-4); Specific Gravity Urine 1.024 (1.000-1.030); Urobilinogen Urine Positive (Negative); pH Urine 5.5 (4.5-7.5)
[2020-11-29 06:59] LABS: Bilirubin Urine 1+ (Negative)
[2020-11-29 07:08] LABS: Bacteria Urine Automated 1+ (Negative)
[2020-11-29] MEDS: TAMSULOSIN HCL 0.4 MG CAP PO SCH (09:18)
[2020-11-29] MEDS: FINASTERIDE 5 MG TAB PO SCH (09:18)
[2020-11-29] MEDS: DOCUSATE SODIUM 100 MG CAP PO SCH ×2 (09:18→20:40)
[2020-11-29] MEDS: predniSONE 20 MG TAB PO SCH (09:18)
[2020-11-29] MEDS: PANTOprazole 40 MG TAB PO SCH (09:18)
[2020-11-29] MEDS: HYDROCORTISONE 1% CRM 30 GM TUBE EXT SCH ×2 (09:19→09:24)
[2020-11-29] MEDS: KETOCONAZOLE 2% CR 15 GM TUBE EXT SCH ×2 (09:19→09:25)
[2020-11-29] MEDS: TIMOLOL MALEATE 0.5% OP SOLN 5 ML BTL OPB SCH (09:19)
[2020-11-29] MEDS: THIAMINE HCL 200 MG in SODIUM CHLORIDE 0.9% 50 ML IV SCH (09:19)
[2020-11-29 10:09] LABS: BUN Creatinine Ratio 37.2 (10-20); Calcium 7.7 mg/dl (8.5-10.1); Creatinine Clr Calc Pharmacy 54.6 ml/min; Est GFR (African American) 84.6 ml/min; Magnesium 2.6 mg/dl (1.8-2.4); Potassium 4.4 mmol/L (3.5-5.1)
[2020-11-29 10:23] LABS: ALC (manual) 5.36 K/uL (1.2-3.4); ANC (manual) 24.59 K/uL (1.4-6.5); Basophils # (manual) 2.45 K/uL (0-0.2); Basophils % (manual) 4.2 %; Blast # (manual) 7.81 K/uL (0-0); Blast Cells % (manual) 13.4 %; Eosinophils # (manual) 0.99 K/uL (0-0.5); Eosinophils % (manual) 1.7 %; Hematocrit (blood only) 25.9 % (42-52); Hemoglobin 8.2 g/dL (14.0-18.0); Lymphocytes # (manual) 5.36 K/uL (1.2-3.4); Lymphocytes % (manual) 9.2 %; Mean Corpuscular Hemoglobin 29.1 pg (25-34); Mean Corpuscular Hgb Conc 31.7 g/dL (32-36); Mean Corpuscular Volume 91.8 fL (80-100); Metamyelocytes # (manual) 0.47 K/uL (0-0); Metamyelocytes % (manual) 0.8 %; Monocytes # (manual) 2.91 K/uL (0.11-0.59); Myelocytes # (manual) 10.78 K/uL (0-0); Myelocytes % (manual) 18.5 %; Neutrophils # (manual) 24.59 K/uL (1.4-6.5); Neutrophils % (manual) 42.2 %; Platelet Count 6 K/uL (130-400); Platelet Estimate SIGNIFIC DECREASED (Normal); Promyelocytes # (manual) 2.91 K/uL (0-0); RDW Coefficient of Variation 18.8 % (11.5-14.5); RDW Standard Deviation 62.6 fL (36.4-46.3); Red Blood Count 2.82 M/uL (4.7-6.1); Tear Drop Cells 1+; White Blood Count 58.28 K/uL (4.8-10.8)
--- NOTE | 2020-11-29 13:17 | Progress Notes ---
HEMATOLOGY PROGRESS NOTE DATE OF SERVICE: 11/29/2020 DIAGNOSES: 1. Myelodysplasia, refractory anemia with excess blasts-1. 2. Agnogenic myeloid metaplasia. 3. General clinical decline. 4. Refractory thrombocytopenia. 5. Anemia. SUBJECTIVE: Mr. Gracia is a very pleasant unfortunate 80-year-old gentleman well known to [facility] with a very complex hematologic history, which includes a diagnosis of high-grade myelodysplasia and agnoge zita myeloid metaplasia. The patient has been hospitalized now for several days and unfortunately not making significant progress. Platelets have been refractory to transfusion and empiric IVIG. He un fortunately suffered a fall striking his head, tried to get up to go to the bathroom without assistan ce. At bedside this morning; I had not seen Mr. Gracia all weekend as I was under the weather and di d not round, but communicated to the hospitalist service through texting and phone calls. Mr. Gracia has definitely declined just in the 4 days since I initially saw him. I advised him that there is u nfortunately very little else I can do to improve his blood counts and unfortunately patients with hi gh-grade myelodysplasia usually succumb to bleeding and/or infection. Mr. Gracia expressed interest in going home and I think at this point it is reasonable to pursue a palliative consultation and allo w Mr. Gracia to go home on hospice at this point. OBJECTIVE: GENERAL: A cachectic-appearing 80-year-old gentleman, minimally conversant, very soft spoken at beds stephanie. VITAL SIGNS: Temperature 36.5, pulse 114, respiratory rate 16, blood pressure 124/72. SKIN: Turgor is poor. Pale in appearance. Scattered ecchymoses. HEENT: Has a large hematoma on the right side of his forehead, status post fall. CARDIAC: Tachycardic, but regular. LUNGS: Clear to auscultation bilaterally. ABDOMEN: Tender in the right upper quadrant. Bowel sounds hypoactive. EXTREMITIES: No clubbing, cyanosis or edema. NEUROLOGIC: Grossly intact. LABORATORY DATA: WBC count 58,280, hemoglobin 8.2, platelet count 6000. Sodium 135, potassium 4.4, chloride 105, carbon dioxide 22, creatinine 0.98, BUN 36. IMPRESSION: 1. Myelodysplasia, refractory anemia with excess blasts-1. 2. Agnogenic myeloid metaplasia. 3. Refractory thrombocytopenia. 4. General clinical decline. 5. Refractory anemia. PLAN: Mr. Isai Gracia is a pleasant, very unfortunate 80-year-old gentleman with a complex hematol ogic issues, unfortunately refractory to all treatment thus far. His bone marrow was updated in mid to late September confirming the diagnosis of myelodysplasia. While he has a couple of cytogenetic anomali es, one favorable and the other is not, 5q minus and 7q respectively. He was also maintained on Jaka fi up until admission. Unfortunately, I believe he is now at end-stage with a little more that we ca n do for him at this point. Unfortunately, as with many patients with complex myelodysplasia, the mo dality of usually comes by hemorrhage and/or infection. I think Mr. Gracia is probably headed towards both at this point. He verbalized a desire to go home on hospice, wanted to speak to his wif e. I will need to touch base with Dr. Peterson Keating to communicate the patient's desire to him to jane e appropriate arrangements. Would continue transfusional support while he remains in-house. I discu ssed his code status and I think at this point, Mr. Gracia is willing to sign DNR/DNI. Thank you very much for assisting me in the care of this very pleasant complex patient. Job ID: [id number]
[2020-11-29] MEDS: ACETAMINOPHEN 325 MG TAB PO PRN ×2 (14:46→22:59)
--- NOTE | 2020-11-29 17:38 | Hospitalist Progress Note ---
Date of Service November 29, 2020 Assessment & Plan (1) Myelofibrosis: Plan: * severe * Oncology on board (appreciate recommendations): PLAN: Mr. Isai Gracia is a pleasant, very unfortunate 80-year-old gentleman with a complex hematologic issues, unfortunately refractory to all treatment thus far. His bone marrow was updated in mid to late September confirming the diagnosis of myelodysplasia. 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 He was also maintained on Jakafi up until admission. Unfortunately, I believe he is now at end-stage with a little more that we can do for him at this point. Unfortunately, as with many patients with complex myelodysplasia, the modality of usually comes by hemorrhage and/or infection. I think Mr. Gracia is probably headed towards both at this point. He verbalized a desire to go home on hospice, wanted to speak to his . I will need to touch base with Dr. Peterson Keating to communicate the patient's desire to him to make appropriate arrangements. Would continue transfusional support while he remains in-house. I discussed his code status and I think at this point, Mr. Gracia is willing to sign DNR/DNI. * plan is for D/C to home with hospice services as prognosis terminal/grave. (2) Thrombocytopenia: Plan: * acute on chronic. * likely d/t severe myelofibrosis and exacerbated by Ruxolitinib (which has been stopped with little to no improvement in plt count even despite IVIG). * see above (3) Anemia: Plan: * see above * patient is s/p transfusion 2 units PRBC's * plan is for D/C to home on hospice. (4) Headache: Plan: * currently asymptomatic (5) Hyperlipidemia: Plan: * d/c statin as plan is for d/c to home with hospice. (6) Hypertension: Plan: Controlled. No active meds (7) Leukocytosis: Plan: Chronic- on steroids with severe myelofibrosis-- see above - no evidence of infective process- CXR clear, no urinary symtpoms, no fevers/chills -unfortunately, high risk for infection with chronic steroid use and myelofobrosis. (8) BPH with obstruction/lower urinary tract symptoms: Plan: * Continue flomax (9) PMR (polymyalgia rheumatica): Plan: Continues prednisone 20 mg daily (10) Fall: Plan: Patient had a fall overnight as he did not call the nurse when he stood up to use the urinal. He stood up and fell and hit his head. Had a small bleed. Had a negative CT scan of the head. (11) Hematoma: Plan: secondary to fall. will monitor. (12) Tachycardia: Plan: -likely secondary to chronic conditions and attempt at cardiac compensation. -again, plan is for home on hospice with plan for comfort measure. Plan: * case mgmt on board * plan is for D/C to home with hospice services. * plan of care to be d/W Dr. Keating. Further orders as warranted Admission and Anticipated Discharge Date Admission Date: November 23, 2020 Subjective Mr. Gracia is a 80 y/o WM with a PMHx of Myeloid Metaplasia (on Ruxolitinib), PMR (on chronic steroids), OA and BPH. He presented to to the ED on 11/23 with N/V and a B/L frontal ABDI. At that time, he was found to have profound thrombocytopenia (6K) and anemia (7.7). In addition, his WBC was elevated at 26K (which appears to be chronic). 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 Confirmed JAK2 positive. Was on hydroxyurea which seemed to improve his thrombocytopenia up front. Over the course of the past several months, his plt count has been downtrending. Bone marrow biopsy confirmed severe myelofibrosis. Was started on Jakafi which initially improved splenomegaly. Now, plt count has dropped as low as 4k (down from 6K despite platelet transfusion). Hbg improved from 7.7 to 8.5 following transfusion of PRBCs. Jakafi held given thrombocytopenia. Has received IVIG with little change in plt count. Did, unfortunately fall resulting in pt striking his head when attempting to use the bathroom. Dr. Huerta (which whom patient is established) has been on board and unfortunately there is no other options given his now high grade myelodysplasia. Patient and have agreed for D/C to home with hospice services as prognosis grave. Review of Systems Review of Systems: All systems reviewed and are unremarkable except as noted in HPI and below Denies fevers, chills, headache, nasal congestion, sore throat, cough, chest pain, shortness of breath, abdominal pain, nausea, vomiting, dysuria, hematuria, frequency, skin lesions or rashes. Physical Exam Physical Exam: General: resting comfortably in his hospital bed. Appears chronically ill- not acutely toxic. HEENT: hematoma to right side of the forehead. Neck: No JVD. Negative hepatojugular reflex Cardiac: RRR with 2-3/6 RAFFY Lungs: CTA without W/R/R Abdomen: Normoactive X4. Soft and nontender in all quadrants. Extremities: No peripheral clubbing cyanosis or edema Neuro: A&O X4 cranial nerves II through XII are grossly intact no focal neuro deficits Skin: Arm and legs covered with ecchymoses. Results & Data Results & Data ([facility]) Vital Signs (Past 12 Hours) Vital Signs Temp Pulse Resp BP BP Pulse Ox 11/29/20 15:35 36.8 C 113 H 18 119/71 119/71 90 11/29/20 06:07 36.5 C 114 H 16 124/72 92 Laboratory Results 11/29/20 09:38 11/29/20 09:38 PG Care Time/CCT Total # of Minutes Spent Total Time Spent with Patient: Total time spent is greater than 50% in coordination of care (as documented) at patient's floor/unit and/or counseling patient: [place] [address] Subseq Hosp Care Lvl 1 Patient Type Established History Problem Focused Exam Problem Focused Medical Decision Making Low Complexity Diagnoses Thrombocytopenia D69.6 Anemia D64.9 Myelofibrosis D75.81 Headache R51.9 Headache chronicity pattern: episodic headache Headache type: unspecified Intractability: not intractable Hyperlipidemia E78.5 Hypertension I10 Leukocytosis D72.829 BPH with obstruction/lower urinary tract symptoms N40.1; N13.8 PMR (polymyalgia rheumatica) M35.3 Fall W19.XXXA Hematoma T14.8XXA Tachycardia R00.0 (1) Headache Headache chronicity pattern: episodic headache Headache type: unspecified Intractability: not intractable Qualified Code(s): R51.9 - Headache, unspecified
[2020-11-29] MEDS ORDERED: MoRPHine SULFATE 4 MG/ML 1 ML CARP\\VIAL IV STA (23:11)
[2020-11-30] MEDS: oxyCODONE HCL IR 5 MG TAB (IMMEDIATE RELEASE) PO PRN (05:31)
[2020-11-30] MEDS ORDERED: MoRPHine SULFATE 5 MG/0.25 ML UDP PO PRN (05:57)
[2020-11-30] MEDS ORDERED: HYDROmorphone INJ 1 MG/ML SYRINGE IV STA (07:17)
[2020-11-30] MEDS ORDERED: HYDROmorphone INJ 1 MG/ML SYRINGE IV PRN (07:17)
[2020-11-30] MEDS ORDERED: LORazepam 0.5 MG/1 ML VIAL IV PRN (07:18)
[2020-11-30] MEDS ORDERED: ATROPINE SULFATE 1% OP SOLN 5 ML BTL PO PRN (07:18)
[2020-11-30] MEDS ORDERED: HYDROmorphone INJ 1 MG/ML SYRINGE ONE (07:28)
[2020-11-30] MEDS: KETOCONAZOLE 2% CR 15 GM TUBE EXT SCH (10:26)
[2020-11-30] MEDS: TIMOLOL MALEATE 0.5% OP SOLN 5 ML BTL OPB SCH (10:26)
[2020-11-30] MEDS: TAMSULOSIN HCL 0.4 MG CAP PO SCH (10:26)
[2020-11-30] MEDS: predniSONE 20 MG TAB PO SCH (10:26)
--- NOTE | 2020-11-30 17:15 | Death Pronouncement Note ---
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 Suspect he developed blast crisis secondary to severe myelofibrosis which unfortunately led to pulmonary edema/CHF and subsequently * Patient has been followed by Dr. Huerta (with whom he is established) and unfortunately no other medical options exist at this time. Plan was for discharge to home with hospice services; however, patient had a rapid decline in the overnight hours * Lengthy discussion with family who wanted to pursue discharge to homethat I did not believe he would survive transportation * Family was agreeable to keep patient in-house on palliative carewhich included IV Dilaudid, IV Ativan, and atropine * Patient ceased to breathe at [address] Huerta: PLAN: Mr. Isai Gracia is a pleasant, very unfortunate 80-year-old gentleman with a complex hematologic issues, unfortunately refractory to all treatment thus far. His bone marrow was updated in mid to late September confirming the diagnosis of myelodysplasia. 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 He was also maintained on Jakafi up until admission. Unfortunately, I believe he is now at end-stage with a little more that we can do for him at this point. Unfor tunately, as with many patients with complex myelodysplasia, the modality of usually comes by hemorrhage and/or infection. I think Mr. Gracia is probably headed towards both at this point. He verbalized a desire to go home on hospice, wanted to speak to his . I will need to touch base with Dr. Peterson Keating to communicate the patient's desire to him to make appropriate arrangements. Would continue transfusional support while he remains in-house. I discussed his code status and I think at this point, Mr. Gracia is willing to sign DNR/DNI. (2) Myelofibrosis: Contributing factors: see above (3) Thrombocytopenia: Contributing factors: Patient did receive platelets upfront with no improvement in his platelet count. Was given multiple doses of IVIG without improvement. See above as outlined by oncology (4) Anemia: Contributing factors: Patient received 2 units of packed RBCs upfrontsee above as outlined (5) Headache: Contributing factors: Likely result of blast crisis (6) Hyperlipidemia: Contributing factors: * Statin therapy held for comfort measures/palliative care (7) Hypertension: Contributing factors: * (8) Leukocytosis: Contributing factors: Chronic. Likely multifactorial (secondary to myelofibrosis, blast crisis, and steroids) (9) BPH with obstruction/lower urinary tract symptoms: (10) PMR (polymyalgia rheumatica): Contributing factors: * Steroid continue upfront; however, as patient declined he developed the inability to tolerate any oral intake. Prednisone held on the morning of 11/30 as he became comfort measures only/palliative care (11) Fall: Contributing factors: Patient had a fall as he did not call the nurse when he stood up to use the urinal. He stood up and fell and hit his head. Had a small bleed. Had a negative CT scan of the head. Discussed with patient and that this would likely be a recurrent event (had he survived) with high risk of intracranial hemorrhage (12) Hematoma: (13) Tachycardia: Hospital Course Hospital Course: Mr. Gracia was a 80 y/o WM with a PMHx of Myeloid Metaplasia (on Ruxolitinib), PMR (on chronic steroids), OA and BPH. He presented to to the ED on 11/23 with N/V and a B/L frontal ABDI. At that time, he was found to have profound thrombocytopenia (6K) and anemia (7.7). In addition, his WBC was elevated at 26K (which appears to be chronic). 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 Confirmed JAK2 positive. Was on hydroxyurea which seemed to improve his thrombocytopenia up front. Over the course of the past several months, his plt count has been downtrending. Bone marrow biopsy confirmed severe myelofibrosis. Was started on Jakafi which initially improved splenomegaly. Now, plt count has dropped as low as 4k (down from 6K despite platelet transfusion). Hbg improved from 7.7 to 8.5 following transfusion of PRBCs. Jakafi held given thrombocytopenia. Has received IVIG with little change in plt count. Did, unfortunately fall resulting in pt striking his head when attempting to use the bathroom. Dr. Huerta (which whom patient is established) had been on board and unfortunately there is no other options given his now high grade myelodysplasia. Patient and have agreed for D/C to home with hospice services as prognosis grave. Summary Additional details: When seen and evaluated by myself on 11/29/2020, patient was awake and alert. He had sustained a ground-level fall nights priorfortunately without any significant sequela. It was discussed with patient and his that given his refractory thrombocytopenia, he was at huge risk for subsequent fall and intracranial hemorrhage. In addition, high risk for infection. Plan was for discharge to home with hospice services. In the overnight hours of 11/29-11/30 (with anticipated discharge day of 11/30awaiting hospice acceptance), patient had a significant decline. He had persistent complaints of abdominal pain which were treated with morphine, oral oxycodone, and subsequently Roxanol without improvement. Was transitioned to Dilaudid. Developed coarse rhonchi audible at bedside with need for supplemental oxygen. Family called in and stayed with patient at bedside. Seen by myself on the morning of 11/30/2020. Patient obtunded. Does not respond to any stimuli. Has had no urine output or oral intake. All oral meds held Initially, family was adamant that they wanted patient discharged home with hospice to pass in home. I gave reservations regarding this family lives 40 minutes away. I did not anticipate patient would survive this transport. Family was then agreeable to keep patient in-house with plan for palliative care/comfort measures. All oral meds stopped Patient continued on IV Dilaudid as needed, IV Ativan as needed, and oral atropine for secretions with comfort being the goal At 1022, patient ceased to breathe and was was pronounced Immediate cause of : Acute respiratory failure/CHF secondary to blast crisis due to severe myelofibrosis Additional Data Confirmation of : no pulse, no respirations and no heart sounds Family: at bedside Attending/PCP notified?: Yes Attending physician: Peterson Keating, DO Was code activated?: No Autopsy requested?: No Coding Level of Care Code D/C DAY MANAGEMENT >30 MINS Diagnoses Myelofibrosis D75.81 Thrombocytopenia D69.6 Anemia D64.9 Headache R51.9 Headache chronicity pattern: episodic headache Headache type: unspecified Intractability: not intractable Hyperlipidemia E78.5 Hypertension I10 Leukocytosis D72.829 BPH with obstruction/lower urinary tract symptoms N40.1; N13.8 PMR (polymyalgia rheumatica) M35.3 Fall W19.XXXA Hematoma T14.8XXA Tachycardia R00.0 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
--- NOTE | 2020-12-03 13:38 | Discharge Summary ---
Date of Service November 30, 2020 Admission HPI Per Admitting Provider 80 YOM with past medical history of: HLD, PMR, OA, BPH, thrombocytosis originally treated with Hydrea, and PCV, primary myelofibrosis via bone biopsy in 11/30 and on Ruxolitinib. Patient is followed by [facility], Dr. Huerta. Patient has received blood transfusions within the past week for anemia and thrombocytopenia. He comes in today for complaints of nausea and vomiting with bifrontal headache. He feels as he has been progressively more fatigued and tired lately and his intake of food, supplements, and drinking has decreased over the past 2 weeks. The patient was evaluated in the EMD and had a head CT performed to rule out intracranial process. His lab work showed a declination in his platelet count to 6 and HGB 7.7. Patient was typed and crossmatched for PRBC and Platelets. Patient will be admitted to continue to follow his blood counts and transfuse to HGB goal >8 and PLT count to 15-20K. Patient feels his symptoms are improved with headache and nausea, continue supportive care. Patient received his COVID vaccines Admission Exam Per Admitting Provider PHYSICAL EXAM: General: awake, alert, fatigued, no apparent distress Head: Normocephalic, atraumatic ENT: PERRL, EOMI, no pharyngeal exudate, mucous membranes moist Neuro: AAO x 3, speech clear and appropriate, strength intact bilaterally 5/5, sensation intact and equal all extremities and dermatomes, no pronator drift Chest: equal rise and fall of the chest, no accessory muscle use, no heaves or thrills, Clear to auscultation, on room air, Cardiac: Regular rate and rhythm, telemetry reviewed, skin warm dry, cap refill <3 seconds, peripheral pulses +2 no JVD, grade III systolic murmur best heard LSB, no edema GI: NABS x 4 quadrants, soft, nontender to palpation, no rebound, guarding or tenderness, soft umbilical hernia that is chronic : Spontaneously voiding, no pain, no CVA tenderness, no hematuria Extremities: Normal inspection, no peripheral edema or erythema, calfs nontender to palpation Psych: Normal mood and affect Skin: pale, bruising to hands, Principal Diagnosis Cause of : 1. CHF secondary to 2. Blast Crisis Secondary to 3. Severe Myelofibrosis Working Diagnoses: 1. Refractory Thrombocytopenia- sp transfusion platelets, IVIG x2 2. Anemia- s/p transfusion PRBC's 3. Leukocytosis 4. Headache- likely d/t blast crisis 5. Abdominal Pain- likely d/t blast crisis 6. GLF resulting in hematoma of head Chronic Medical Conditions: 1. Progressive Myelofibrosis 2. PMR 3. Chronic Steroid therapy 4. BPH 5. HTN 6. HLD Discharge Exam Initial Exam: Genl: Patient obtunded/ unconscious. Does not respond to stimuli. appears comfortable Heart: distant and bradycardic Lungs: Apneic breathing. Rhonchi heard at bedside. Very diminished Abd: hypoactive to no BS throughout Ext: skin Mottling noted of the bilateral feet and heels Patient reassessed at 1022: He was noticed to be not breathing and pulseless. No heart sounds. Was pronounced at 1022 Discharge Data Allergies Allergy/AdvReac Type Severity Reaction Status Date / Time No Known Allergies Allergy Verified 11/23/20 12:16 Consultations 11/24/20 09:16 Consult Oncology Routine PLAN: Mr. Isai Gracia is a pleasant, very unfortunate 80-year-old gentleman with a complex hematologic issues, unfortunately refractory to all treatment thus far. His bone marrow was updated in mid to late September confirming the diagnosis of myelodysplasia. 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 He was also maintained on Jakafi up until admission. Unfortunately, I believe he is now at end-stage with a little more that we can do for him at this point. Unfortunately, as with many patients with complex myelodysplasia, the modality of usually comes by hemorrhage and/or infection. I think Mr. Gracia is probably headed towards both at this point. He verbalized a desire to go home on hospice, wanted to speak to his . I will need to touch base with Dr. Peterson Keating to communicate the patient's desire to him to make appropriate arrangements. Would continue transfusional support while he remains in-house. I discussed his code status and I think at this point, Mr. Gracia is willing to sign DNR/DNI. Procedures Performed transfusion of 2 units PRBC's and 1 unit of platelets IVIG infusion x2 Ordered Studies 11/23/2020: CXR: No acute process 11/23/20 11:35 CT head/brain wo con Stat No acute intracranial findings. 11/24/20 00:27 CT head/brain wo con Urgent IMPRESSION: 1. No acute intracranial findings. 2. Mild sinus mucosal thickening. 3. Small left mastoid effusion. 11/27/20 01:57 CT head/brain wo con Urgent Impression: No acute intracranial abnormality. Right-sided scalp injury 11/27/20 17:27 CT abd pelvis IV con only Routine IMPRESSION: 1. Progressive splenomegaly with interval development of a wedge-shaped splenic hypodensity. This likely represents a splenic infarct. A splenic laceration is c onsidered less likely. 2. A 2.8 cm focus of heterogeneous enhancement within the lower pole the right kidney. This is new from the prior study and could represent a pyelonephritis. Recommend correlation with urinalysis. 3. Redemonstration of the asymmetric wall thickening at the left bladder dome. Consider follow-up cystoscopy for further evaluation. 4. Small bilateral pleural effusions. 5. Additional findings as described above. 11/28/20 09:34 US renal/blad retro comp Routine IMPRESSION: 1. No hydronephrosis. 2. Nonvisualization of the hypodense focus within the lower pole of the right kidney shown on CT of November 27, 2020. 3. 7.9 cm right renal cyst. 4. Splenomegaly and redemonstration of a hypoechoic focus which favors a splenic infarct, better depicted by CT. 5. Nonspecific bladder wall thickening. 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 Suspect he developed blast crisis secondary to severe myelofibrosis which unfortunately led to pulmonary edema/CHF and subsequently Patient has been followed by Dr. Huerta (with whom he is established) and unfortunately no other medical options exist at this time. Plan was for discharge to home with hospice services; however, patient had a rapid decline in the overnight hours Lengthy discussion with family who wanted to pursue discharge to homethat I did not believe he would survive transportation Family was agreeable to keep patient in-house on palliative carewhich included IV Dilaudid, IV Ativan, and atropine Patient ceased to breathe at 1022 (2) Myelofibrosis: * severe * Oncology on board (appreciate recommendations): PLAN: Mr. Isai Gracia is a pleasant, very unfortunate 80-year-old gentleman with a complex hematologic issues, unfortunately refractory to all treatment thus far. His bone marrow was updated in mid to late September confirming the diagnosis of myelodysplasia. 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 He was also maintained on Jakafi up until admission. Unfortunately, I believe he is now at end-stage with a little more that we can do for him at this point. Unfortunately, as with many patients with complex myelodysplasia, the modality of usually comes by hemorrhage and/or infection. I think Mr. Gracia is probably headed towards both at this point. He verbalized a desire to go home on hospice, wanted to speak to his . I will need to touch base with Dr. Peterson Keating to communicate the patient's desire to him to make appropriate arrangements. Would continue transfusional support while he remains in-house. I discussed his code status and I think at this point, Mr. Gracia is willing to sign DNR/DNI. * plan is for D/C to home with hospice services as prognosis terminal/grave. (3) Thrombocytopenia: * acute on chronic. * likely d/t severe myelofibrosis and exacerbated by Ruxolitinib (which has been stopped with little to no improvement in plt count even despite IVIG). * see above (4) Anemia: * see above * patient is s/p transfusion 2 units PRBC's (5) Headache: * likely rom blast crisis (6) Hyperlipidemia: * statin stopped with comfort measures (7) Hypertension: antihypertensives stopped with comfort measures (8) Leukocytosis: Chronic- on steroids with severe myelofibrosis-- see above - no evidence of infective process- CXR clear, no urinary symtpoms, no fevers/chills -unfortunately, high risk for infection with chronic steroid use and myelofobrosis. (9) BPH with obstruction/lower urinary tract symptoms: * flomax stopped with PLANIMETER OPERATOR order (10) PMR (polymyalgia rheumatica): steroids continued upofront but then stopped with PLANIMETER OPERATOR order (11) Fall: Patient had a fall while in house as he did not call the nurse when he stood up to use the urinal. He stood up and fell and hit his head. Had a small bleed and hematoma Had a negative CT scan of the head. (12) Hematoma: secondary to fall. will monitor. (13) Tachycardia: -likely secondary to chronic conditions and attempt at cardiac compensation. * Patient CTB and was pronounced at 1022. Total Time Total Time Spent Total Time Spent (In Minutes): 90 min including multiple DW family, hospice services and nurse. Discharge Plan Discharge Items Patient Disposition: Discharge Diagnosis: 11/30/20 at 1022 acutely d/t 1. CHF because of 2. Acute blast crisis because of 3. Severe Myelofibrosis Addtl Attending Provider Instructions: patient Supervising Physician Co-Signing Physician Notes Patient reviewed on the day of discharge. patient peacefully on comfort care, pronounced by Shelly WALTERS. 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
== END 2020-11-30 10:22 | disposition expired | DRG 841 ==
LOC: ED 10:38 → SUATTDRO 14:17 → 3N 14:17